=== PATIENT | male | born 1960 | race African-American/Black ===

== ENCOUNTER 2017-10-09 12:24 | Inpatient (IN) | payer OTHER ==
[~2017-10-09] VITALS: Ht 180.3 cm; Wt 62.5 kg
[~2017-10-09 12:24] MED LIST: PRED20 PO
[2017-10-09] MEDS ORDERED: IOHEXOL 350 MG/ML 10 ML VIAL (for RAD DIAG) IVCONTRAST ONE (12:25)
[2017-10-09 12:27] VITALS: BP 152/76; PULSE 134; RESP 16; TEMP 98; O2SAT 94
[2017-10-09] MEDS ORDERED: SODIUM CHLOR 0.9% 1000 ML INJ 1,000 ML IV SCH (12:48)
[2017-10-09 12:51] VITALS: O2SAT 99
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
[2017-10-09] MEDS ORDERED: ONDANSETRON HCL 4 MG/2 ML VIAL IVP ONE (13:00)
[2017-10-09 13:07] LABS: AUTOMATED NEUTROPHIL # 8.4 TH/MM3 (1.8-7.7); BASOPHIL % 0.4 % (0.0-2.0); EOSINOPHIL % 0.1 % (0.0-4.0); HEMATOCRIT 35.8 % (39.0-51.0); HEMOGLOBIN 12.3 GM/DL (13.0-17.0); LYMPH % 9.1 % (9.0-44.0); MEAN CELL VOLUME 96.1 FL (80.0-100.0); MEAN CORPUSCULAR HEMOGLOBIN 33.1 PG (27.0-34.0); MEAN CORPUSCULAR HGB CONC 34.5 % (32.0-36.0); MONOCYTE # 1.2 TH/MM3 (0-0.9); NEUT % 79.4 % (16.0-70.0); PLATELET COUNT 90 TH/MM3 (150-450); RED BLOOD COUNT 3.72 MIL/MM3 (4.50-5.90); RED CELL DISTRIBUTION WIDTH 14.7 % (11.6-17.2); WHITE BLOOD COUNT 10.6 TH/MM3 (4.0-11.0)
[2017-10-09 13:19] LABS: INTERNATIONAL NORMALIZED RATIO 1.6 RATIO; PROTHROMBIN TIME - PATIENT 16.6 SEC (9.8-11.6)
[2017-10-09 13:34] LABS: TROPONIN I LESS THAN 0.02 NG/ML (0.02-0.05)
[2017-10-09 13:35] LABS: ALBUMIN 2.9 GM/DL (3.4-5.0); ALKALINE PHOSPHATASE 90 U/L (45-117); ALT (GPT) 28 U/L (12-78); AST (GOT) 43 U/L (15-37); BICARBONATE 26.4 MEQ/L (21.0-32.0); BLOOD UREA NITROGEN 14 MG/DL (7-18); CALCIUM 8.5 MG/DL (8.5-10.1); CHLORIDE 90 MEQ/L (98-107); CREATININE 1.43 MG/DL (0.60-1.30); GLOMERULAR FILTRATION RATE 62 ML/MIN (>89); GLUCOSE,RANDOM 114 MG/DL (74-106); SODIUM (NA) 130 MEQ/L (136-145); TOTAL BILIRUBIN ADULT 3.9 MG/DL (0.2-1.0); TOTAL PROTEIN 8.8 GM/DL (6.4-8.2)
[2017-10-09] MEDS ORDERED: SODIUM CHLOR 0.9% 1000 ML INJ 1,000 ML IV ONE (13:45)
[2017-10-09] MEDS ORDERED: VANCOMYCIN INJ 1,500 MG in SODIUM CHLORID 0.9% 500 ML INJ 500 ML IV ONE (13:45)
[2017-10-09] MEDS ORDERED: PIPERACIL-TAZO 3.375 GM PREMIX 50 ML IV ONE (13:45)
[2017-10-09 13:48] LABS: BANDS 9 % (0-6); LYMPHOCYTES 19 % (9-44); MONOCYTES 11 % (0-8); NEUTROPHIL # MANUAL DIFF 7.4 TH/MM3 (1.8-7.7); POLYS (SEG NEUTROPHILS) 61 % (16-70)
[2017-10-09 13:49] LABS: TARGET CELLS 1+ (NORMAL); TOXIC GRANULATION 1+ (NORMAL)
[2017-10-09 13:50] LABS: TOXIC VACUOLATION PRESENT (NONE SEEN)
--- NOTE | 2017-10-09 14:14 | RADRPT ---
EXAM DATE/TIME: 10/09/2017 13:10 [facility] COMPARISON: CHEST SINGLE AP, August 17, 2013, 16:38. INDICATIONS : Vomiting, Right anterior posterior chest pain MEDICAL HISTORY : None. SURGICAL HISTORY : None. ENCOUNTER: Initial ACUITY: 1 day PAIN SCORE: 2/10 LOCATION: Right chest FINDINGS: There is focal alveolar consolidation of the right upper lobe consistent with probable lobar pneumoni a. Clinical correlation is recommended. The left lung is clear. The heart is stable. CONCLUSION: Focal alveolar consolidation of the right upper lobe consistent with probable lobar p neumonia. Clinical correlation is recommended. Parveen Vogel MD on October 09, 2017 at 14:11 Board Certified Radiologist. This report was verified electronically.
[2017-10-09] MEDS ORDERED: POTASSIUM CHLORIDE 10 MEQ CONTROLLED RELEASE TAB PO ONE (14:15)
--- NOTE | 2017-10-09 15:10 | PD ---
Physical Exam Narrative I, Dr. Bill, have reviewed the advance practice practitioner's documentation and am in agreement, met with the patient face to face, made the diagnosis, and the medical decision making was done by me. *My assessment and Findings: Patient is a 57 year old male who comes in complaining of pain to his right chest. He says he has had it for 5 days and has been unable to sleep. He also complains of some SOB and nausea and vomiting. Exam shows mildly distended abdomen, minimal diffuse tenderness. No tenderness to palpation of the chest. Data Data Last Documented VS Vital Signs Date Time Temp Pulse Resp B/P (MAP) Pulse Ox O2 Delivery O2 Flow Rate FiO2 10/09/17 12:51 99 Room Air 10/09/17 12:27 98.0 134 16 152/76 (101) Orders Orders Complete Blood Count With Diff (10/09/17 12:48) Comprehensive Metabolic Panel (10/09/17 12:48) Lipase (10/09/17 12:48) Lactic Acid (10/09/17 12:48) Prothrombin Time / Inr (Pt) (10/09/17 12:48) Act Partial Throm Time (Ptt) (10/09/17 12:48) Urinalysis - C+S If Indicated (10/09/17 12:48) Ct Abd/Pel W Iv Contrast(Rout) (10/09/17 12:48) Iv Access Insert/Monitor (10/09/17 12:48) Ecg Monitoring (10/09/17 12:48) Oximetry (10/09/17 12:48) NPO (10/09/17 12:48) Ondansetron Inj (Zofran Inj) (10/09/17 13:00) Sodium Chlor 0.9% 1000 Ml Inj (Ns 1000 M (10/09/17 12:48) Electrocardiogram (10/09/17 12:48) Ammonia (10/09/17 12:59) Troponin I (10/09/17 12:59) Ckmb (Isoenzyme) Profile (10/09/17 12:59) Chest, Single Ap (10/09/17 ) Ct Thorax/ Chest W Iv Contrast (10/09/17 ) Sodium Chlor 0.9% 1000 Ml Inj (Ns 1000 M (10/09/17 13:45) Piperacil-Tazo 3.375 Gm Premix (Zosyn 3. (10/09/17 13:45) Vancomycin Inj (Vancomycin Inj) (10/09/17 13:45) Potassium Chloride (Kcl) (10/09/17 14:15) Iohexol 350 Inj (Omnipaque 350 Inj) (10/09/17 12:25) Blood Culture (10/09/17 15:34) Admit Order (Ed Use Only) (10/09/17 15:35) Labs Laboratory Tests Test 10/09/17 12:50 10/09/17 13:00 White Blood Count 10.6 TH/MM3 Red Blood Count 3.72 MIL/MM3 Hemoglobin 12.3 GM/DL Hematocrit 35.8 % Mean Corpuscular Volume 96.1 FL Mean Corpuscular Hemoglobin 33.1 PG Mean Corpuscular Hemoglobin Concent 34.5 % Red Cell Distribution Width 14.7 % Platelet Count 90 TH/MM3 Mean Platelet Volume 9.0 FL Neutrophils (%) (Auto) 79.4 % Lymphocytes (%) (Auto) 9.1 % Monocytes (%) (Auto) 11.0 % Eosinophils (%) (Auto) 0.1 % Basophils (%) (Auto) 0.4 % Neutrophils # (Auto) 8.4 TH/MM3 Lymphocytes # (Auto) 1.0 TH/MM3 Monocytes # (Auto) 1.2 TH/MM3 Eosinophils # (Auto) 0.0 TH/MM3 Basophils # (Auto) 0.0 TH/MM3 CBC Comment AUTO DIFF Differential Total Cells Counted 100 Neutrophils % (Manual) 61 % Band Neutrophils % 9 % Lymphocytes % 19 % Monocytes % 11 % Neutrophils # (Manual) 7.4 TH/MM3 Differential Comment FINAL DIFF MANUAL Toxic Granulation 1+ Toxic Vacuolation PRESENT Platelet Estimate LOW Platelet Morphology Comment NORMAL Basophilic Stippling FAINT Target Cells 1+ Prothrombin Time 16.6 SEC Prothromb Time International Ratio 1.6 RATIO Activated Partial Thromboplast Time 33.6 SEC Blood Urea Nitrogen 14 MG/DL Creatinine 1.43 MG/DL Random Glucose 114 MG/DL Total Protein 8.8 GM/DL Albumin 2.9 GM/DL Calcium Level 8.5 MG/DL Alkaline Phosphatase 90 U/L Aspartate Amino Transf (AST/SGOT) 43 U/L Alanine Aminotransferase (ALT/SGPT) 28 U/L Total Bilirubin 3.9 MG/DL Sodium Level 130 MEQ/L Potassium Level 2.9 MEQ/L Chloride Level 90 MEQ/L Carbon Dioxide Level 26.4 MEQ/L Anion Gap 14 MEQ/L Estimat Glomerular Filtration Rate 62 ML/MIN Lactic Acid Level 3.6 mmol/L Lipase 225 U/L Ammonia 32 MCMOL/L Total Creatine Kinase 85 U/L Troponin I LESS THAN 0.02 NG/ML MDM Supervised Visit with TRAN: Yes Narrative Course Patient is a 57 year old male who comes in complaining of right sided chest pain , SOB, nausea. IV established, labs sent. Labs show evidence of liver failure. Lactic acid is 3.6. CXR shows a right sided infiltrate. Given antibiotics, fluids. Will be admitted for further management. Diagnosis Primary Impression: Hypokalemia Additional Impression: Thrombocytopenia Condition: Stable Alberta Bill MD Oct 09, 2017 15:10
--- NOTE | 2017-10-09 15:14 | RADRPT ---
EXAM DATE/TIME: 10/09/2017 14:32 [facility] COMPARISON: CT ABDOMEN & PELVIS W/O CONTRAST, May 16, 2010, 11:16. CT ABDOMEN & PELVIS W CONTRAST, July 222013, 14:52. INDICATIONS : Right side abdominal pain, nausea and vomiting. IV CONTRAST: 70 cc Omnipaque 350 (iohexol) IV ; Cumulative dose for multiple exams. ORAL CONTRAST: No oral contrast ingested. RADIATION DOSE: 5.10 CTDIvol (mGy) ; Combined studies - Thorax/Abdomen/Pelvis MEDICAL HISTORY : Diverticulitis. Cirrhosis. Carcinoma, prostate.Hepatitis C. SURGICAL HISTORY : None. ENCOUNTER: Initial ACUITY: 4 - 6 days PAIN SCALE: 10/10 LOCATION: Right upper quadrant TECHNIQUE: Volumetric scanning of the abdomen and pelvis was performed. Using automated exposure control and ad justment of the mA and/or kV according to patient size, radiation dose was kept as low as reasonably achievable to obtain optimal diagnostic quality images. DICOM format image data is available electro nically for review and comparison. FINDINGS: There is a large solid mass arising from the left kidney measuring 8.7 x 6.9 x 8.6 cm suggestive of r enal cell carcinoma until proven otherwise. Percutaneous biopsy this lesion could be performed if req uested. The liver is nodular in contour and demonstrates diffuse decreased attenuation consistent wit h probable cirrhosis. No biliary ductal dilatation is noted the gallbladder has been resected. Spleen is top normal in size. The pancreas is unremarkable. The adrenal glands are normal bilaterally. The right kidney is unremarkable. No retroperitoneal lymphadenopathy is noted. No mesenteric lymphadenopa thy is noted. No ascites is noted. The urinary bladder is unremarkable. The appendix is normal. No cole wel obstruction is noted. There is patchy opacity within the left lower lobe consistent with possible pneumonia. Clinical correlation is recommended. Mild degenerative changes are noted involving the hi p joints bilaterally. CONCLUSION: 1. Large solid mass arising from the left kidney measuring 8.7 x 6.9 x 8.6 cm suggestive of renal kelsie l carcinoma until proven otherwise. Percutaneous biopsy this lesion could be performed if requested. 2. Patchy opacity within the left lower lobe consistent with possible pneumonia. 3. Nodular heterogeneous liver suggestive of cirrhosis. 4. Mild degenerative changes are noted involving the hip joints bilaterally. Parveen Vogel MD on October 09, 2017 at 15:03 Board Certified Radiologist. This report was verified electronically.
--- NOTE | 2017-10-09 15:17 | RADRPT ---
EXAM DATE/TIME: 10/09/2017 14:32 [facility] COMPARISON: No previous studies available for comparison. INDICATIONS : Right side chest pain, nausea and vomiting. IV CONTRAST: 70 cc Omnipaque 350 (iohexol) IV ; Cumulative dose for multiple exams. RADIATION DOSE: 5.10 CTDIvol (mGy) ; Combined studies - Thorax/Abdomen/Pelvis MEDICAL HISTORY : Cirrhosis. Carcinoma, prostate. Hepatitis C.Diverticulitis. SURGICAL HISTORY : None. ENCOUNTER: Initial ACUITY: 4 - 6 days PAIN SCALE: 10/10 LOCATION: Right upper chest TECHNIQUE: Volumetric scanning of the chest was performed. Using automated exposure control and adjustment of t he mA and/or kV according to patient size, radiation dose was kept as low as reasonably achievable to obtain optimal diagnostic quality images. DICOM format image data is available electronically for review and comparison. Follow-up recommendations for detected pulmonary nodules are based at a minimum on nodule size and pa tient risk factors according to Fleischner Society Guidelines. FINDINGS: LUNGS: Alveolar consolidation is noted within the right upper lobe and less severe patchy opacities are note d within the left lower lobe and posterior aspect of left upper lobe also consistent with probable pn eumonia. No pulmonary nodule or mass is noted. There is no pneumothorax. No concerning pulmonary nod ule is visualized. PLEURA: There is no pleural thickening or pleural effusion. MEDIASTINUM: The heart and great vessels demonstrate no acute abnormality. There is no mediastinal or hilar lymph adenopathy. AXILLAE: Within normal limits. No lymphadenopathy. SKELETAL: Mild degenerative changes and scoliosis of the thoracic spine. MISCELLANEOUS: The visualized upper abdominal organs demonstrate no acute abnormality. CONCLUSION: Alveolar consolidation within the right upper lobe and less severe patchy opacities w ithin the left lower lobe and posterior aspect of the left upper lobe consistent with probable pneumo naveen. Parveen Vogel MD on October 09, 2017 at 15:13 Board Certified Radiologist. This report was verified electronically.
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
[2017-10-09] MEDS ORDERED: RESP: ALBUTEROL 2.5 MG/IPRATROPIUM 0.5 MG NEB (PRN) INH (16:30)
[2017-10-09] MEDS ORDERED: SODIUM CHLORIDE 0.9% FLUSH 10 ML FLUSH IV FLUSH PRN (16:30)
[2017-10-09] MEDS ORDERED: ACETAMINOPHEN 325 MG TAB PO PRN (16:30)
[2017-10-09] MEDS ORDERED: guaiFENesin/DEXTROMETHORPHAN 200 MG/20 MG/10 ML CUP PO PRN (16:30)
[2017-10-09] MEDS ORDERED: ENOXAPARIN SODIUM 40 MG/0.4 ML SYRINGE SQ SCH (16:30)
[2017-10-09] MEDS ORDERED: Vancomycin Consult Pharmacy 1 EA OTHER SCH (16:30)
[2017-10-09] MEDS ORDERED: ONDANSETRON HCL 4 MG/2 ML VIAL IV PUSH PRN (16:30)
[2017-10-09 17:23] VITALS: BP 128/58; PULSE 100; RESP 17; O2SAT 98
[2017-10-09] MEDS: SODIUM CHLOR 0.9% 1000 ML INJ 1,000 ML IV SCH (17:27)
[2017-10-09] MEDS ORDERED: LORazepam 2 MG TAB PO PRN (17:45)
[2017-10-09] MEDS ORDERED: LORazepam 2 MG/ML VIAL IV PUSH PRN ×4 (17:45)
[2017-10-09] MEDS ORDERED: FLUMAZENIL 0.5 MG/5 ML VIAL IV PUSH PRN (17:45)
[2017-10-09] MEDS ORDERED: LORazepam 1 MG TAB PO PRN (17:45)
[2017-10-09] MEDS ORDERED: cloNIDine HCL 0.1 MG TAB PO PRN (18:00)
[2017-10-09 18:58] LABS: BILIRUBIN, URINE NEG (NEG); BLOOD, URINE TRACE (NEG); GLUCOSE,URINE NEG (NEG); KETONE, URINE NEG (NEG); NITRITE,URINE NEG (NEG); PH, URINE 6.5 (5.0-8.5); SQUAMOUS EPITHELIAL CELL URINE 1 /hpf (0-5); URINE COLOR DARK-YELLOW (YELLW/STRAW); URINE LEUKOCYTE ESTERASE SMALL (NEG)
[2017-10-09] MEDS ORDERED: EUCERIN CREAM 120 GM JAR TOPICAL PRN (19:00)
[2017-10-09 19:13] VITALS: BP 134/73; PULSE 102; RESP 16; O2SAT 100
[2017-10-09] MEDS: SODIUM CHLORIDE 0.9% FLUSH 10 ML FLUSH IV FLUSH SCH (21:00)
[2017-10-09] MEDS: PIPERACIL-TAZO 3.375 GM PREMIX 50 ML IV SCH (22:09)
[2017-10-09 22:40] VITALS: BP 108/56; PULSE 107; RESP 16; TEMP 99.3; O2SAT 94
[2017-10-10] VITALS (12 sets, daily range): BP systolic 101–151; BP diastolic 57–83; PULSE 79–108; RESP 16–19; TEMP 97.3–100; O2SAT 97–100
[2017-10-10 00:45] LABS: BICARBONATE 25.1 MEQ/L (21.0-32.0); CALCIUM 7.2 MG/DL (8.5-10.1); CREATININE 1.26 MG/DL (0.60-1.30)
[2017-10-10] MEDS ORDERED: POTASSIUM CHLORIDE 10 MEQ CONTROLLED RELEASE TAB PO ONE (01:15)
[2017-10-10 01:16] LABS: TOTAL PROTEIN 7.3 GM/DL (6.4-8.2)
[2017-10-10 01:19] LABS: CALCIUM-PROTEIN CORRECTED 7.2 MG/DL (8.5-10.1)
[2017-10-10] MEDS: CALCIUM CARBONATE 500 MG CHEWABLE TAB CHEW SCH ×3 (01:44→22:26)
[2017-10-10] MEDS: PIPERACIL-TAZO 3.375 GM PREMIX 50 ML IV SCH ×4 (01:46→22:26)
[2017-10-10] MEDS: SODIUM CHLOR 0.9% 1000 ML INJ 1,000 ML IV SCH ×3 (01:47→22:25)
[2017-10-10] MEDS ORDERED: CALCIUM GLUCONATE INJ 1 GM in SODIUM CHLORIDE 0.9% INJ 100 ML IV ONE (03:00)
[2017-10-10] MEDS ORDERED: IBUPROFEN 400 MG TAB PO PRN (03:00)
[2017-10-10] MEDS ORDERED: NALOXONE HCL 0.4 MG/ML AMP IV PUSH PRN (03:00)
[2017-10-10] MEDS ORDERED: MORPHINE SULFATE 4 MG/ML INJ IV PUSH PRN (03:15)
[2017-10-10 04:10] LABS: MAGNESIUM 0.8 MG/DL (1.5-2.5); PHOSPHORUS 0.8 MG/DL (2.5-4.9)
[2017-10-10] MEDS ORDERED: VANCOMYCIN INJ 1,000 MG in SODIUM CHLOR 0.9% 250 ML INJ 250 ML IV SCH (04:20)
[2017-10-10 07:09] LABS: INTERNATIONAL NORMALIZED RATIO 2.4 RATIO; PROTHROMBIN TIME - PATIENT 24.3 SEC (9.8-11.6)
[2017-10-10 07:10] LABS: AUTOMATED NEUTROPHIL # 4.6 TH/MM3 (1.8-7.7); BASOPHIL % 0.3 % (0.0-2.0); EOSINOPHIL % 0.4 % (0.0-4.0); HEMATOCRIT 29.1 % (39.0-51.0); LYMPH % 16.5 % (9.0-44.0); LYMPHOCYTE # 1.2 TH/MM3 (1.0-4.8); MEAN CELL VOLUME 96.1 FL (80.0-100.0); MEAN CORPUSCULAR HGB CONC 34.3 % (32.0-36.0); MEAN PLATELET VOLUME 9.9 FL (7.0-11.0); MONO % 18.4 % (0.0-8.0); MONOCYTE # 1.3 TH/MM3 (0-0.9); NEUT % 64.4 % (16.0-70.0); PLATELET COUNT 86 TH/MM3 (150-450); RED BLOOD COUNT 3.03 MIL/MM3 (4.50-5.90); RED CELL DISTRIBUTION WIDTH 14.8 % (11.6-17.2); WHITE BLOOD COUNT 7.1 TH/MM3 (4.0-11.0)
[2017-10-10] MEDS: MAGNESIUM OXIDE 400 MG TAB PO SCH ×3 (07:22→22:26)
[2017-10-10 07:41] LABS: ALBUMIN 2.1 GM/DL (3.4-5.0); ALKALINE PHOSPHATASE 56 U/L (45-117); ALT (GPT) 18 U/L (12-78); AST (GOT) 32 U/L (15-37); BICARBONATE 24.7 MEQ/L (21.0-32.0); BLOOD UREA NITROGEN 12 MG/DL (7-18); CALCIUM 7.7 MG/DL (8.5-10.1); CHLORIDE 104 MEQ/L (98-107); CREATININE 1.12 MG/DL (0.60-1.30); GLOMERULAR FILTRATION RATE 82 ML/MIN (>89); GLUCOSE,RANDOM 89 MG/DL (74-106); SODIUM (NA) 137 MEQ/L (136-145); TOTAL BILIRUBIN ADULT 2.5 MG/DL (0.2-1.0); TOTAL PROTEIN 6.6 GM/DL (6.4-8.2)
[2017-10-10] MEDS: MULTIVITAMINS/MINERALS THERAPEUTIC TAB PO SCH (08:09)
[2017-10-10] MEDS: THIAMINE HCL 100 MG TAB PO SCH (08:10)
[2017-10-10] MEDS: FOLIC ACID 1 MG TAB PO SCH (08:10)
[2017-10-10] MEDS ORDERED: POTASSIUM CHLORIDE 20 MEQ CONTROLLED RELEASE TAB PO ONE (09:00)
[2017-10-10] MEDS: SODIUM CHLORIDE 0.9% FLUSH 10 ML FLUSH IV FLUSH SCH ×2 (09:00→21:00)
[2017-10-10 09:26] LABS: BANDS 14 % (0-6); LYMPHOCYTES 14 % (9-44); MONOCYTES 10 % (0-8); NEUTROPHIL # MANUAL DIFF 5.4 TH/MM3 (1.8-7.7); POLYS (SEG NEUTROPHILS) 62 % (16-70); TARGET CELLS 1+ (NORMAL)
[2017-10-10] MEDS ORDERED: PHYTONADIONE 5 MG TAB PO ONE (10:00)
[2017-10-10] MEDS ORDERED: VANCOMYCIN 1,000 MG/NS 250 ML IV SCH ×2 (10:00)
[2017-10-10] MEDS ORDERED: PHYTONADIONE 5 MG/SWFI 5 ML ORAL SYR PO ONE (10:30)
--- NOTE | 2017-10-10 13:32 | HHI.FPPN ---
Addendum to progress note ADDENDUM Reason for addendum: Additonal documentation Additional information 57 year old male admitted with known cirrhosis, alcoholism for CAP, renal mass and electrolyte abnormalities, Please see resident History and Physical for the full documentation of the patients history. Today at the time of his exam , he reports he feels a little better than yesterday. He states he has been hungry, had one episode emesis since admission but that was prior to bed yesterday, he feels like the diarrhea has resolved. On exam Gen - he is awake, alert, no distress, comfortably resting in bed HEENT - perrl, op clear CARDS -- rrr, no murmurs HEME - no cervical LAD, no bruising or petechiae PULM - clear bilaterally except some scattered dry crackles at the bases bilateral ABD - s, nt, good bowel sounds, no masses EXT _ no edema, moving all ext well SKIN - no rashes, no lesions Neuro - strength 5/5 all ext, ambulating and speaking normally. 1. CAP with possible risk for aspiration and possibly immunocompromised due to renal cell carcinoma -- will continue with broad spectrum antibiotics at this time and narrow based on cultures and clinical picture. 2. UTI - culture pending suspect might be due to obstructive picture due to renal mass 3. Renal mass - will need biopsy after INR normalizes to decrease risk of bleeding during the procedure. 4. Cirrhosis/electrolytes balance -- will monitor, replete and attempts to normalize. Patient was seen and dw the resident team -- Dr. Stephenson, Dr. Coe, Dr. Radha Maharaj,Melissa Velez MD Oct 10, 2017 13:32
[2017-10-10 18:10] LABS: INTERNATIONAL NORMALIZED RATIO 1.5 RATIO; PROTHROMBIN TIME - PATIENT 15.6 SEC (9.8-11.6)
--- NOTE | 2017-10-10 19:52 | EKG ---
Date Performed: 10/09/2017 Time Performed: 13:00:30 PTAGE: 57 years EKG: SINUS TACHYCARDIA Since previous tracing, no significant change noted ABNORMAL RHYTHM ECG PREVIOUS TRACING : 08/17/2013 22.19 DOCTOR: Amanuel Longo Interpretating Date/Time 10/10/2017 19:49:48
[2017-10-11] VITALS (7 sets, daily range): BP systolic 121–159; BP diastolic 72–85; PULSE 78–95; RESP 18–20; TEMP 96.7–98.5; O2SAT 95–100
[2017-10-11] MEDS: PIPERACIL-TAZO 3.375 GM PREMIX 50 ML IV SCH ×4 (03:00→20:34)
[2017-10-11] MEDS: THIAMINE HCL 100 MG TAB PO SCH (08:56)
[2017-10-11] MEDS: CALCIUM CARBONATE 500 MG CHEWABLE TAB CHEW SCH ×2 (08:56→20:36)
[2017-10-11] MEDS: MULTIVITAMINS/MINERALS THERAPEUTIC TAB PO SCH (08:56)
[2017-10-11] MEDS: MAGNESIUM OXIDE 400 MG TAB PO SCH ×2 (08:56→20:36)
[2017-10-11] MEDS: FOLIC ACID 1 MG TAB PO SCH (08:56)
[2017-10-11] MEDS: SODIUM CHLORIDE 0.9% FLUSH 10 ML FLUSH IV FLUSH SCH ×2 (08:57→20:36)
[2017-10-11] MEDS: SODIUM CHLOR 0.9% 1000 ML INJ 1,000 ML IV SCH (08:59)
--- NOTE | 2017-10-11 09:45 | HHI.FPPN ---
Subjective Remarks No acute issues overnight. Vitals are stable, patient remains afebrile. Temperature high was 100.0 overnight. He is starting to feel better overall. He continues to have pain in his right chest especially when coughing. When discussing obtaining a biopsy of his renal mass, he further explained that he has a history of prostate cancer that was treated with radiation a year ago at [facility] in [place]. He states that he had a PET scan one month ago that as far as he knows was normal. He follows with PCP, Dr. Castorena at [facility] and has an oncologist as well. He does not remember his oncologist's name. He states that he was never treated with chemotherapy. (Cherri Garcia MD, R3) Objective Vitals Vital Signs Date Time Temp Pulse Resp B/P (MAP) Pulse Ox O2 Delivery O2 Flow Rate FiO2 10/11/17 04:00 96.7 82 18 140/79 (99) 95 10/11/17 02:03 Room Air 10/11/17 00:00 79 10/10/17 23:50 97.5 79 17 126/72 (90) 98 10/10/17 20:00 97.8 84 17 121/71 (88) 98 10/10/17 20:00 83 10/10/17 20:00 Room Air 10/10/17 18:10 98 21 10/10/17 18:00 100.0 10/10/17 16:00 97.5 95 18 123/82 (96) 100 10/10/17 16:00 92 10/10/17 15:58 98 Room Air 10/10/17 13:54 98 Room Air 10/10/17 12:00 93 10/10/17 12:00 97.3 93 17 114/72 (86) 97 I/O 10/10/17 10/10/17 10/10/17 10/11/17 10/11/17 10/11/17 07:00 15:00 23:00 07:00 15:00 23:00 Intake Total 1520 ml 1700 ml Output Total 5 ml 1350 ml 200 ml Balance -5 ml 170 ml 1500 ml Intake Oral 1520 ml 0 ml IV Total 1700 ml Output Urine Total 1350 ml 200 ml Stool Total 5 ml # Voids 2 1 2 # Bowel Movements 2 2 (Cherri Garcia MD, R3) Result Diagram: 3/23/18 0616 10/10/17 0616 Imaging Last Impressions Abdomen/Pelvis CT 10/09/17 1248 Signed Impressions: Service Date/Time: September 14:32 - CONCLUSION: 1. Large solid mass arising from the left kidney measuring 8.7 x 6.9 x 8.6 cm suggestive of renal cell carcinoma until proven otherwise. Percutaneous biopsy this lesion could be performed if requested. 2. Patchy opacity within the left lower lobe consistent with possible pneumonia. 3. Nodular heterogeneous liver suggestive of cirrhosis. 4. Mild degenerative changes are noted involving the hip joints bilaterally. Parveen Vogel MD Chest X-Ray 10/09/17 0000 Signed Impressions: Service Date/Time: September 13:10 - CONCLUSION: Focal alveolar consolidation of the right upper lobe consistent with probable lobar pneumonia. Clinical correlation is recommended. Parveen Vogel MD Chest CT 10/09/17 0000 Signed Impressions: Service Date/Time: September 14:32 - CONCLUSION: Alveolar consolidation within the right upper lobe and less severe patchy opacities within the left lower lobe and posterior aspect of the left upper lobe consistent with probable pneumonia. Parveen Vogel MD Objective Remarks GENERAL: Well-nourished, well-developed patient male in no acute distress. SKIN: Warm and dry. HEAD: Normocephalic. EYES: No scleral icterus. I lateral conjunctival injection, scleral icterus. NECK: Supple, trachea midline. No JVD or lymphadenopathy. CARDIOVASCULAR: Regular rate and rhythm without murmurs, gallops, or rubs. RESPIRATORY: Decreased breath sounds in mid axillary region. Otherwise, breath sounds clear and equal bilaterally. No accessory muscle use. No wheezes or crackles. GASTROINTESTINAL: Abdomen soft, non-tender, nondistended. MUSCULOSKELETAL: No cyanosis, or edema. BACK: Nontender without obvious deformity. No CVA tenderness. (Cherri Garcia MD, R3) A/P Assessment and Plan Patient is a 57 year old male with a PMH significant for prostate cancer s/p radiation, HTN and alcoholism who presented for weakness and several other ailments and admitted for PNA, new renal mass, and metabolic disturbance. Discharge Planning Anticipate discharge home in 2-3 days. (Cherri Garcia MD, R3) Attending Attestation Case reviewed and discussed with the resident team. Agree with plan of care as discussed with me and documented in the resident note. (Melissa Mahraaj MD) Problem List: (1) CAP (community acquired pneumonia) ICD Codes: J18.9 - Pneumonia, unspecified organism Status: Acute Plan: Tachycardia resolved Right upper lobar pneumonia on chest x-ray Patchy opacities within the left lower lobe posterior aspect of the left upper lobe consistent with probable pneumonia on chest CT No leukocytosis 10/09 urinary strep antigen positive, legionella negative 10/09 blood culture growing gram positive cocci Plan: - Given Strep PNA in the setting of a gram positive bacteremia, will continue treatment with broad-spectrum antibiotics vancomycin and Zosyn. Continue to follow cultures. -Incentive spirometry - Influenza A/B antigen - sputum culture - Follow CBC (2) Bacteremia due to Gram-positive bacteria ICD Codes: R78.81 - Bacteremia Plan: 10/09 blood culture growing gram positive cocci Repeat blood cultures today Continue Vanc and Zosyn (3) Weakness ICD Codes: R53.1 - Weakness Status: Acute Plan: Improving Likely multifactorial secondary to metabolic disturbance, infection, and malignancy Continue to replete electrolytes Further infectious workup with UA, blood cultures Further evaluation of possible malignancy with renal biopsy Continue IVF hydration and supportive care (4) Kidney mass ICD Codes: N28.89 - Other specified disorders of kidney and ureter Status: Acute Plan: 10/09 CT abdomen and pelvis significant for large solid mass arising from the left kidney measuring 8.7 x 6.9 x 8.6 cm suggestive of renal cell carcinoma Will obtain CT-guided biopsy: This was delayed due to elevated INR, s/p phytonadione 5mg PO once with decrease in INR to 1.5 Discussed with Radiology: Will continue monitoring INR and give Vitamin K PRN to keep INR low in anticipation of CT-guided biopsy on Friday Patient is already established with oncologist. Once pathology is obtained, will likely proceed with further evaluation and treatment as outpatient. (5) Hypokalemia ICD Codes: E87.6 - Hypokalemia Status: Acute Plan: Continue to monitor and replete (6) Cirrhosis ICD Codes: K74.60 - Unspecified cirrhosis of liver Status: Chronic Plan: Likely secondary to history of alcoholism Likely cause of hyponatremia (7) Thrombocytopenia ICD Codes: D69.6 - Thrombocytopenia, unspecified Status: Chronic Plan: This appears to be the patient's baseline per chart review (8) HTN (hypertension) ICD Codes: I10 - HTN (hypertension) Status: Chronic Plan: Continue home amlodipine 10mg PO daily (9) Alcoholism /alcohol abuse ICD Codes: F10.20 - Alcohol dependence, uncomplicated Status: Chronic Plan: Obtain ethanol level [facility] protocol (10) Nutrition, metabolism, and development symptoms ICD Codes: R63.8 - Other symptoms and signs concerning food and fluid intake Status: Acute Plan: Fluids: Tolerating PO, will DC IV fluids today Electrolytes: continue to monitor and replete PRN Nutrition: Regular Diet, ensure shakes DVT PPx: Held for thrombocytopenia (Cherri Garcia MD, R3) Problem Qualifiers (1) CAP (community acquired pneumonia): Qualified Codes: J18.1 - Lobar pneumonia, unspecified organism (2) Cirrhosis: Qualified Codes: K70.30 - Alcoholic cirrhosis of liver without ascites (3) HTN (hypertension): Qualified Codes: I10 - Essential (primary) hypertension Cherri Garcia MD, R3 Oct 11, 2017 09:45 Melissa Maharaj MD Oct 11, 2017 15:35
[2017-10-11 10:05] LABS: INTERNATIONAL NORMALIZED RATIO 1.4 RATIO; PROTHROMBIN TIME - PATIENT 14.3 SEC (9.8-11.6)
[2017-10-11 10:08] LABS: HEMATOCRIT 28.7 % (39.0-51.0); HEMOGLOBIN 9.8 GM/DL (13.0-17.0); MEAN CELL VOLUME 97.7 FL (80.0-100.0); MEAN CORPUSCULAR HEMOGLOBIN 33.2 PG (27.0-34.0); MEAN PLATELET VOLUME 9.4 FL (7.0-11.0); PLATELET COUNT 128 TH/MM3 (150-450); RED BLOOD COUNT 2.94 MIL/MM3 (4.50-5.90); RED CELL DISTRIBUTION WIDTH 15.5 % (11.6-17.2); WHITE BLOOD COUNT 6.3 TH/MM3 (4.0-11.0)
[2017-10-11 10:40] LABS: BICARBONATE 23.6 MEQ/L (21.0-32.0); CALCIUM 7.7 MG/DL (8.5-10.1); CREATININE 0.9 MG/DL (0.60-1.30)
[2017-10-11] MEDS ORDERED: POTASSIUM CHLORIDE 20 MEQ CONTROLLED RELEASE TAB PO ONE ×2 (11:15→20:00)
[2017-10-11] MEDS ORDERED: PHARMACY ORDERED LAB ONE (21:45)
[2017-10-12] VITALS (11 sets, daily range): BP systolic 130–151; BP diastolic 64–88; PULSE 87–109; RESP 18–20; TEMP 97.7–98.1; O2SAT 98–100
[2017-10-12] MEDS: PIPERACIL-TAZO 3.375 GM PREMIX 50 ML IV SCH ×4 (03:22→21:54)
[2017-10-12 07:49] LABS: AUTOMATED NEUTROPHIL # 5.2 TH/MM3 (1.8-7.7); BASOPHIL % 0.2 % (0.0-2.0); EOSINOPHIL # 0.1 TH/MM3 (0-0.4); EOSINOPHIL % 1.3 % (0.0-4.0); HEMATOCRIT 28.6 % (39.0-51.0); HEMOGLOBIN 9.9 GM/DL (13.0-17.0); LYMPH % 15.8 % (9.0-44.0); LYMPHOCYTE # 1.3 TH/MM3 (1.0-4.8); MEAN CELL VOLUME 96.2 FL (80.0-100.0); MEAN CORPUSCULAR HEMOGLOBIN 33.1 PG (27.0-34.0); MEAN CORPUSCULAR HGB CONC 34.4 % (32.0-36.0); MEAN PLATELET VOLUME 8.5 FL (7.0-11.0); MONO % 19.6 % (0.0-8.0); MONOCYTE # 1.6 TH/MM3 (0-0.9); NEUT % 63.1 % (16.0-70.0); PLATELET COUNT 170 TH/MM3 (150-450); RED BLOOD COUNT 2.98 MIL/MM3 (4.50-5.90); RED CELL DISTRIBUTION WIDTH 15.1 % (11.6-17.2); WHITE BLOOD COUNT 8.3 TH/MM3 (4.0-11.0)
[2017-10-12 07:54] LABS: INTERNATIONAL NORMALIZED RATIO 1.5 RATIO; PROTHROMBIN TIME - PATIENT 15.3 SEC (9.8-11.6)
[2017-10-12 08:18] LABS: ALBUMIN 2.3 GM/DL (3.4-5.0); ALT (GPT) 37 U/L (12-78); AST (GOT) 68 U/L (15-37); BICARBONATE 25.4 MEQ/L (21.0-32.0); BLOOD UREA NITROGEN 9 MG/DL (7-18); CALCIUM 8.2 MG/DL (8.5-10.1); CHLORIDE 102 MEQ/L (98-107); CREATININE 0.94 MG/DL (0.60-1.30); GLOMERULAR FILTRATION RATE 100 ML/MIN (>89); GLUCOSE,RANDOM 90 MG/DL (74-106); SODIUM (NA) 136 MEQ/L (136-145)
[2017-10-12 08:19] LABS: ALKALINE PHOSPHATASE 84 U/L (45-117); TOTAL BILIRUBIN ADULT 1.6 MG/DL (0.2-1.0); TOTAL PROTEIN 6.9 GM/DL (6.4-8.2)
[2017-10-12] MEDS: SODIUM CHLORIDE 0.9% FLUSH 10 ML FLUSH IV FLUSH SCH ×2 (08:54→21:55)
[2017-10-12] MEDS: CALCIUM CARBONATE 500 MG CHEWABLE TAB CHEW SCH ×2 (08:54→21:54)
[2017-10-12] MEDS: MAGNESIUM OXIDE 400 MG TAB PO SCH ×2 (08:54→21:55)
[2017-10-12] MEDS: MULTIVITAMINS/MINERALS THERAPEUTIC TAB PO SCH (08:54)
[2017-10-12] MEDS: FOLIC ACID 1 MG TAB PO SCH (08:54)
[2017-10-12] MEDS: THIAMINE HCL 100 MG TAB PO SCH (08:55)
--- NOTE | 2017-10-12 10:25 | HHI.FPPN ---
Subjective Remarks Patient is restless today, states he is tired of being in the hospital and feels ready to go. Is annoyed w/feeling trapped, reminds him of being incarcerated. Does not know why he is still in the hospital, is tired of sitting around. Friend is at bedside.Tries to reassure patient to be calm down. Patient feels better after reason for hospitalization and plan of treatment is reiterated to him. Vitals stable overnight. Positive fluid balance, patient has gained a kilogram since yesterday. (Sujey Stephenson MD R1) Objective Vitals Vital Signs Date Time Temp Pulse Resp B/P (MAP) Pulse Ox O2 Delivery O2 Flow Rate FiO2 10/12/17 08:30 98 21 10/12/17 08:00 87 10/12/17 04:00 97.8 91 20 131/88 (102) 99 10/12/17 03:41 90 10/12/17 00:06 90 10/12/17 00:00 98.1 89 20 137/79 (98) 100 10/11/17 20:00 98.3 93 20 121/85 (97) 100 10/11/17 20:00 Room Air 10/11/17 19:43 95 10/11/17 16:00 86 10/11/17 16:00 98.5 91 20 159/74 (102) 98 10/11/17 12:00 90 10/11/17 12:00 97.5 91 20 131/75 (93) 100 I/O 10/11/17 10/11/17 10/11/17 10/12/17 10/12/17 10/12/17 07:00 15:00 23:00 07:00 15:00 23:00 Intake Total 1700 ml 200 ml 720 ml 420 ml Output Total 200 ml 300 ml 400 ml Balance 1500 ml 200 ml 420 ml 20 ml Intake Oral 0 ml 720 ml 420 ml IV Total 1700 ml 200 ml Output Urine Total 200 ml 300 ml 400 ml # Voids 2 2 # Bowel Movements 2 1 (Sujey Stephenson MD R1) Result Diagram: 10/12/1762610/12/17626 Objective Remarks GENERAL: Well-nourished, well-developed patient male in no acute distress. SKIN: Warm and dry. HEAD: Normocephalic. EYES: No scleral icterus or drainage. NECK: Supple, trachea midline. No JVD or lymphadenopathy. CARDIOVASCULAR: Regular rate and rhythm without murmurs, gallops, or rubs. RESPIRATORY: No accessory muscle use, lungs clear bilaterally. No wheezes. GASTROINTESTINAL: Abdomen soft, non-tender, nondistended. MUSCULOSKELETAL: No cyanosis, or edema. (Sujey Stephenson MD R1) A/P Assessment and Plan Patient is a 57 year old male with a PMH significant for prostate cancer s/p radiation, HTN and alcoholism who presented for weakness and several other ailments and admitted for PNA, new renal mass, and metabolic disturbance. Discharge Planning Anticipate discharge home after bx of renal mass procedure on Friday. (Sujey Stephenson MD R1) Attending Attestation Patient seen and examined. Case reviewed and discussed with the resident team. Agree with plan of care as discussed with me and documented in the resident note. Patient seen and examined on 10/12. This is late entry for that visit. Patient is clinically back at his baseline on exam. Lungs are clear, no crackles or wheezing, he is dressed walking around the room in no discomfort. He denies withdrawal symptoms and does not have any tremors or confusion on exam. Ideally would like to dc to home with outpatient fu after the kidney biopsy on Friday. Will depend on his clinical course. (Melissa Maharaj MD) Problem List: (1) CAP (community acquired pneumonia) ICD Codes: J18.9 - Pneumonia, unspecified organism Status: Acute Plan: Tachycardia resolved Right upper lobar pneumonia on chest x-ray Patchy opacities within the left lower lobe posterior aspect of the left upper lobe consistent with probable pneumonia on chest CT No leukocytosis 10/09 urinary strep antigen positive, legionella negative 10/09 blood culture growing gram positive cocci 10/11 blood cultures negative growth after 1 day S/p Vanc 2 doses (10/09-) Plan: - Given Strep PNA in the setting of a gram positive bacteremia, will continue treatment with Zosyn (10/09-) and follow cx -Incentive spirometry - Follow CBC (2) Bacteremia due to Gram-positive bacteria ICD Codes: R78.81 - Bacteremia Plan: 10/09 blood culture growing gram positive cocci Blood x from 10/11 negative after 1 day Continue Vanc and Zosyn (3) Weakness ICD Codes: R53.1 - Weakness Status: Acute Plan: Improving Likely multifactorial secondary to metabolic disturbance, infection, and malignancy Continue to replete electrolytes Further evaluation of possible malignancy with renal biopsy Continue IVF hydration and supportive care (4) Kidney mass ICD Codes: N28.89 - Other specified disorders of kidney and ureter Status: Acute Plan: 10/09 CT abdomen and pelvis significant for large solid mass arising from the left kidney measuring 8.7 x 6.9 x 8.6 cm suggestive of renal cell carcinoma Will obtain CT-guided biopsy: This was delayed due to elevated INR, s/p phytonadione 5mg PO once with decrease in INR to 1.5 Discussed with Radiology: Will continue monitoring INR and give Vitamin K PRN to keep INR low in anticipation of CT-guided biopsy on Friday Patient is already established with oncologist. Once pathology is obtained, will likely proceed with further evaluation and treatment as outpatient. (5) Hypokalemia ICD Codes: E87.6 - Hypokalemia Status: Acute Plan: Continue to monitor and replete (6) Cirrhosis ICD Codes: K74.60 - Unspecified cirrhosis of liver Status: Chronic Plan: Likely secondary to history of alcoholism Likely cause of hyponatremia (7) Thrombocytopenia ICD Codes: D69.6 - Thrombocytopenia, unspecified Status: Chronic Plan: This appears to be the patient's baseline per chart review (8) HTN (hypertension) ICD Codes: I10 - HTN (hypertension) Status: Chronic Plan: Continue home amlodipine 10mg PO daily (9) Alcoholism /alcohol abuse ICD Codes: F10.20 - Alcohol dependence, uncomplicated Status: Chronic Plan: Obtain ethanol level [facility] protocol (10) Nutrition, metabolism, and development symptoms ICD Codes: R63.8 - Other symptoms and signs concerning food and fluid intake Status: Acute Plan: Fluids: Tolerating PO Electrolytes: continue to monitor and replete PRN Nutrition: Regular Diet, ensure shakes DVT PPx: Held for thrombocytopenia (Sujey Stephenson MD R1) Problem Qualifiers (1) CAP (community acquired pneumonia): Qualified Codes: J18.1 - Lobar pneumonia, unspecified organism (2) Cirrhosis: Qualified Codes: K70.30 - Alcoholic cirrhosis of liver without ascites (3) HTN (hypertension): Qualified Codes: I10 - Essential (primary) hypertension Suejy Stephenson MD R1 Oct 12, 2017 10:25 Melissa Maharaj MD Oct 13, 2017 07:56
[2017-10-12] MEDS ORDERED: POTASSIUM CHLORIDE 10 MEQ CONTROLLED RELEASE TAB PO ONE (10:30)
[2017-10-12] MEDS ORDERED: PHYTONADIONE 5 MG TAB PO ONE ×2 (13:15→13:30)
[2017-10-12] MEDS ORDERED: PHYTONADIONE 5 MG/SWFI 5 ML ORAL SYR PO ONE (14:15)
[2017-10-13] VITALS (9 sets, daily range): BP systolic 116–147; BP diastolic 64–86; PULSE 84–94; RESP 18–22; TEMP 97.7–98.8; O2SAT 93–100
[2017-10-13 01:38] LABS: HEMOGLOBIN 9.2 GM/DL (13.0-17.0); MEAN CELL VOLUME 95.3 FL (80.0-100.0); MEAN CORPUSCULAR HEMOGLOBIN 32.7 PG (27.0-34.0); MEAN CORPUSCULAR HGB CONC 34.3 % (32.0-36.0); MEAN PLATELET VOLUME 8.6 FL (7.0-11.0); PLATELET COUNT 232 TH/MM3 (150-450); RED BLOOD COUNT 2.83 MIL/MM3 (4.50-5.90); RED CELL DISTRIBUTION WIDTH 14.9 % (11.6-17.2); WHITE BLOOD COUNT 11.6 TH/MM3 (4.0-11.0)
[2017-10-13 01:53] LABS: INTERNATIONAL NORMALIZED RATIO 1.6 RATIO; PROTHROMBIN TIME - PATIENT 16.1 SEC (9.8-11.6)
[2017-10-13 01:58] LABS: ALBUMIN 2.5 GM/DL (3.4-5.0); AST (GOT) 52 U/L (15-37); BICARBONATE 28.2 MEQ/L (21.0-32.0); BLOOD UREA NITROGEN 7 MG/DL (7-18); CALCIUM 8.3 MG/DL (8.5-10.1); CHLORIDE 102 MEQ/L (98-107); CREATININE 0.89 MG/DL (0.60-1.30); GLOMERULAR FILTRATION RATE 106 ML/MIN (>89); GLUCOSE,RANDOM 94 MG/DL (74-106); SODIUM (NA) 137 MEQ/L (136-145)
[2017-10-13 02:00] LABS: ALKALINE PHOSPHATASE 86 U/L (45-117); ALT (GPT) 38 U/L (12-78); TOTAL BILIRUBIN ADULT 1.4 MG/DL (0.2-1.0); TOTAL PROTEIN 7.3 GM/DL (6.4-8.2)
[2017-10-13] MEDS: PIPERACIL-TAZO 3.375 GM PREMIX 50 ML IV SCH ×3 (05:04→15:00)
[2017-10-13] MEDS ORDERED: PHYTONADIONE 5 MG TAB PO ONE (07:00)
--- NOTE | 2017-10-13 09:25 | HHI.FPPN ---
Subjective Remarks Patient doing well, no acute complaints-no abdominal pain, chest pain, or SOB. Looking forward to procedure today. (Sujey Stephenson MD R1) Objective Vitals Vital Signs Date Time Temp Pulse Resp B/P (MAP) Pulse Ox O2 Delivery O2 Flow Rate FiO2 10/13/17 05:00 97.7 88 18 134/72 (92) 100 10/13/17 03:42 94 10/13/17 00:00 98.8 93 18 147/80 (102) 99 10/12/17 23:42 92 10/12/17 20:00 Room Air 10/12/17 20:00 97.8 96 18 151/72 (98) 100 10/12/17 19:37 109 10/12/17 16:00 93 10/12/17 16:00 97.7 99 20 144/81 (102) 100 10/12/17 12:00 95 10/12/17 12:00 97.9 100 20 130/64 (86) 99 10/12/17 10:25 Room Air I/O 10/12/17 10/12/17 10/12/17 10/13/17 10/13/17 10/13/17 07:00 15:00 23:00 07:00 15:00 23:00 Intake Total 420 ml 480 ml Output Total 400 ml Balance 20 ml 480 ml Intake Oral 420 ml 480 ml Output Urine Total 400 ml # Voids 2 2 4 # Bowel Movements 2 (Sujey Stephenson MD R1) Result Diagram: 10/13/17 0131 10/13/17 0131 Objective Remarks GENERAL: Well-nourished, well-developed patient male in no acute distress. SKIN: Warm and dry. HEAD: Normocephalic. EYES: No scleral icterus or drainage. NECK: Supple, trachea midline. No JVD or lymphadenopathy. CARDIOVASCULAR: Regular rate and rhythm without murmurs, gallops, or rubs. RESPIRATORY: No accessory muscle use, lungs clear bilaterally. No wheezes. GASTROINTESTINAL: Abdomen soft, non-tender, nondistended. MUSCULOSKELETAL: No edema. (Sujey Stephenson MD R1) A/P Assessment and Plan Patient is a 57 year old male with a PMH significant for prostate cancer s/p radiation, HTN and alcoholism who presented for weakness and several other ailments and admitted for PNA, new renal mass, and metabolic disturbance. Discharge Planning Anticipate discharge home after bx of renal mass procedure on Friday. (Sujey Stephenson MD R1) Attending Attestation Patient seen and examined. Case reviewed and discussed with the resident team. Agree with plan of care as discussed with me and documented in the resident note. (Melissa Maharaj MD) Problem List: (1) CAP (community acquired pneumonia) ICD Codes: J18.9 - Pneumonia, unspecified organism Status: Acute Plan: Tachycardia resolved Right upper lobar pneumonia on chest x-ray Patchy opacities within the left lower lobe posterior aspect of the left upper lobe consistent with probable pneumonia on chest CT No leukocytosis S/p Vanc 2 doses (10/09-) 10/09 urinary strep antigen positive, legionella negative 10/09 blood culture growing gram positive cocci 10/11 blood cultures negative growth after 1 day Plan: - Given Strep PNA in the setting of a gram positive bacteremia, will continue treatment with Zosyn (10/09-) and follow cx -Incentive spirometry - Follow CBC (2) Bacteremia due to Gram-positive bacteria ICD Codes: R78.81 - Bacteremia Plan: 10/09 blood culture growing gram positive cocci Blood cx from 10/11 negative after 1 day Continue Zosyn (3) Weakness ICD Codes: R53.1 - Weakness Status: Resolved Plan: Improving Likely multifactorial secondary to metabolic disturbance, infection, and malignancy Continue to replete electrolytes Further evaluation of possible malignancy with renal biopsy Continue supportive care (4) Kidney mass ICD Codes: N28.89 - Other specified disorders of kidney and ureter Status: Acute Plan: 10/09 CT abdomen and pelvis significant for large solid mass arising from the left kidney measuring 8.7 x 6.9 x 8.6 cm suggestive of renal cell carcinoma. Discussed w/radiology. Patient is already established with oncologist. Will obtain CT-guided biopsy: This was delayed due to elevated INR, s/p phytonadione 5mg PO once with decrease in INR to 1.5. Once pathology from bx is obtained, will likely proceed with further evaluation and treatment as outpatient. Will continue monitoring INR and give Vitamin K PRN to keep INR low in anticipation of CT-guided biopsy today NPO for procedure (5) Hypokalemia ICD Codes: E87.6 - Hypokalemia Status: Resolved Plan: Continue to monitor and replete (6) Cirrhosis ICD Codes: K74.60 - Unspecified cirrhosis of liver Status: Chronic Plan: Likely secondary to history of alcoholism (7) Thrombocytopenia ICD Codes: D69.6 - Thrombocytopenia, unspecified Status: Resolved Plan: Possibly baseline thrombocytopenic per chart review (8) HTN (hypertension) ICD Codes: I10 - HTN (hypertension) Status: Chronic Plan: Continue home amlodipine 10mg PO daily (9) Alcoholism /alcohol abuse ICD Codes: F10.20 - Alcohol dependence, uncomplicated Status: Chronic Plan: Obtain ethanol level Scores have been 0 DC [facility] protocol (10) Nutrition, metabolism, and development symptoms ICD Codes: R63.8 - Other symptoms and signs concerning food and fluid intake Status: Acute Plan: Fluids: Tolerating PO Electrolytes: continue to monitor and replete PRN Nutrition: Regular Diet, ensure shakes DVT PPx: Held for procedure, elevated baseline INR and possibly thrombocytopenia (Sujey Stephenson MD R1) Problem Qualifiers (1) CAP (community acquired pneumonia): Qualified Codes: J18.1 - Lobar pneumonia, unspecified organism (2) Cirrhosis: Qualified Codes: K70.30 - Alcoholic cirrhosis of liver without ascites (3) HTN (hypertension): Qualified Codes: I10 - Essential (primary) hypertension Sujey Stephenson MD R1 Oct 13, 2017 09:25 Melissa Maharaj MD Oct 13, 2017 19:01
[2017-10-13 10:00] LABS: INTERNATIONAL NORMALIZED RATIO 1.6 RATIO; PROTHROMBIN TIME - PATIENT 16.4 SEC (9.8-11.6)
[2017-10-13] MEDS: MULTIVITAMINS/MINERALS THERAPEUTIC TAB PO SCH (10:24)
[2017-10-13] MEDS: THIAMINE HCL 100 MG TAB PO SCH (10:24)
[2017-10-13] MEDS: MAGNESIUM OXIDE 400 MG TAB PO SCH (10:24)
[2017-10-13] MEDS: FOLIC ACID 1 MG TAB PO SCH (10:24)
[2017-10-13] MEDS: CALCIUM CARBONATE 500 MG CHEWABLE TAB CHEW SCH (10:25)
[2017-10-13] MEDS: SODIUM CHLORIDE 0.9% FLUSH 10 ML FLUSH IV FLUSH SCH (10:25)
[2017-10-13] MEDS ORDERED: fentaNYL CITRATE 250 MCG/5 ML AMP ONE (14:38)
[2017-10-13] MEDS ORDERED: MIDAZOLAM HCL 2 MG/2 ML VIAL ONE (14:38)
--- NOTE | 2017-10-13 15:57 | PD.RAD ---
Post CT Procedure Prog Note Pre Procedure Diagnosis: (1) Kidney mass Post Procedure Diagnosis: (1) Kidney mass Procedure Date: Oct 13, 2017 Supervising Radiologist: Jac Amor Anesthesia: Local, Conscious Sedation Plan of Activity Patient to Unit: Nursing Unit Patient Condition: Good See PACS Report for procedural detail/treatment Biopsy Imaging Guidance: CT Side: Left Biopsy Procedure: Abdominal Mass, Kidney Specimen: Core Biopsy Jac Amor MD Oct 13, 2017 15:57
--- NOTE | 2017-10-13 16:37 | RADRPT ---
EXAM DATE/TIME: 10/13/2017 15:30 [place] COMPARISON: No previous studies available for comparison. INDICATIONS : Mass. SEDATION TIME: 30 minutes BIOPSY SITE: Left kidney MEDICATION(S): 1.) 2 mg midazolam (Versed) IV 2.) 250 mcg fentanyl (Sublimaze) IV DEVICE(S): 1.) 18 gauge Temno core biopsy needle MEDICAL HISTORY : Diverticullitis. prostate cancer SURGICAL HISTORY : None. ENCOUNTER: Initial ACUITY: 1 day PAIN SCORE: 0/10 LOCATION: Bilateral flank A total of three core specimen(s) were obtained and sent to the laboratory for pathologic evaluation. PROCEDURE: 1. CT guided renal biopsy. 2. Conscious sedation with continuous EKG and oximetry monitoring. 3. EKG and oximetry remained stable throughout the procedure. Prior to the procedure informed consent was obtained. Any appropriate prior imaging studies were rev iewed. Using automated exposure control and adjustment of the mA and/or kV according to patient size, radiat ion dose was kept as low as reasonably achievable to obtain optimal diagnostic quality images. DICOM format image data is available electronically for review and comparison. The site was prepped in a sterile fashion. Full sterile technique was used, including cap, mask, nupur rile gloves and gown and a large sterile sheet. Hand hygiene and 2% chlorhexidine and/or betadine/al cohol prep was utilized per protocol for cutaneous antisepsis. The skin and subcutaneous tissues wer e infiltrated with local anesthetic solution. With CT guidance the previously identified target was localized. Biopsy was performed using the presc ribed needle as above. Adequate hemostasis was obtained with compression at the puncture site. Follow-up CT scan reveals no hemorrhage. The patient tolerated the procedure well and there were no complications. The patient was returned to the Radiology Outpatient Unit in stable condition. CONCLUSION: Uncomplicated CT guided biopsy of left renal mass.. Jac Amor MD on October 13, 2017 at 16:34 Board Certified Radiologist. This report was verified electronically.
[2017-10-13] MEDS ORDERED: LEVO750T3 PO (17:15)
[2017-10-13] MEDS ORDERED: AMLO10TA2 PO (17:16)
[2017-10-13] MEDS ORDERED: Calcium Carbonate Chew CHEW (17:18)
[2017-10-13] MEDS ORDERED: MAGN400T2 PO (17:18)
--- NOTE | 2017-10-13 17:19 | HHI.DCPOC ---
Discharge Care Plan Diagnosis: (1) CAP (community acquired pneumonia) (2) Kidney mass Goals to Promote Your Health * To prevent worsening of your condition and complications * To maintain your health at the optimal level Directions to Meet Your Goals Take your medications as prescribed Follow your dietary instruction Follow activity as directed Keep your appointments as scheduled Take your immunizations and boosters as scheduled If your symptoms worsen call your PCP, if no PCP go to Urgent Care Center or Emergency Room Smoking is Dangerous to Your Health. Avoid second hand smoke Call the 24-hour hour crisis hotline for domestic abuse at Cherri Garcia MD, R3 Oct 13, 2017 17:19
--- NOTE | 2017-10-13 17:31 | HHI.DS ---
Discharge Summary Admission Date Oct 09, 2017 at 15:37 Discharge Date: Oct 13, 2017 Admitting Diagnosis PNA, sepsis, hypokalemia (1) CAP (community acquired pneumonia) Diagnosis: Principal Plan: Tachycardia resolved Right upper lobar pneumonia on chest x-ray Patchy opacities within the left lower lobe posterior aspect of the left upper lobe consistent with probable pneumonia on chest CT No leukocytosis S/p Vanc 2 doses (10/09-) 10/09 urinary strep antigen positive, legionella negative 10/09 blood culture growing gram positive cocci 10/11 blood cultures negative growth after 1 day Plan: - Given Strep PNA in the setting of a gram positive bacteremia, will continue treatment with Zosyn (10/09-) and follow cx -Incentive spirometry - Follow CBC ICD Codes: J18.9 - Pneumonia, unspecified organism Status: Acute (2) Kidney mass Diagnosis: Secondary Plan: 10/09 CT abdomen and pelvis significant for large solid mass arising from the left kidney measuring 8.7 x 6.9 x 8.6 cm suggestive of renal cell carcinoma. Discussed w/radiology. Patient is already established with oncologist. Will obtain CT-guided biopsy: This was delayed due to elevated INR, s/p phytonadione 5mg PO once with decrease in INR to 1.5. Once pathology from bx is obtained, will likely proceed with further evaluation and treatment as outpatient. Will continue monitoring INR and give Vitamin K PRN to keep INR low in anticipation of CT-guided biopsy today NPO for procedure ICD Codes: N28.89 - Other specified disorders of kidney and ureter Status: Acute (3) Bacteremia due to Gram-positive bacteria Plan: 10/09 blood culture growing gram positive cocci Blood cx from 10/11 negative after 1 day Continue Zosyn ICD Codes: R78.81 - Bacteremia (4) Weakness Plan: Improving Likely multifactorial secondary to metabolic disturbance, infection, and malignancy Continue to replete electrolytes Further evaluation of possible malignancy with renal biopsy Continue supportive care ICD Codes: R53.1 - Weakness Status: Resolved (5) Hypokalemia Plan: Continue to monitor and replete ICD Codes: E87.6 - Hypokalemia Status: Resolved (6) Cirrhosis Plan: Likely secondary to history of alcoholism ICD Codes: K74.60 - Unspecified cirrhosis of liver Status: Chronic (7) Thrombocytopenia Plan: Possibly baseline thrombocytopenic per chart review ICD Codes: D69.6 - Thrombocytopenia, unspecified Status: Resolved (8) HTN (hypertension) Plan: Continue home amlodipine 10mg PO daily ICD Codes: I10 - HTN (hypertension) Status: Chronic (9) Alcoholism /alcohol abuse Plan: Obtain ethanol level Scores have been 0 DC [facility] protocol ICD Codes: F10.20 - Alcohol dependence, uncomplicated Status: Chronic (10) Nutrition, metabolism, and development symptoms Plan: Fluids: Tolerating PO Electrolytes: continue to monitor and replete PRN Nutrition: Regular Diet, ensure shakes DVT PPx: Held for procedure, elevated baseline INR and possibly thrombocytopenia ICD Codes: R63.8 - Other symptoms and signs concerning food and fluid intake Status: Acute Procedures CT guided left renal biopsy 10/13/17 Brief History On admission: Patient is a 57 year old male with a PMH significant for HTN and alcoholism who presents today for weakness and several other ailments. He complains of poor appetite (has not eaten in >1 week), insomnia, weakness for the past week, headache, bilateral lower extremity swelling and pain (they feel like they have no blood flow). He has lost 15-25 lbs in the past week. He has been tolerating liquids. He has been trying to eat, but when he takes a bite it causes epigastric pain. He has also had nausea and vomiting every day. He has 3-4 episodes of emesis each day for the past week. The emesis is non-bloody but does appear yellowish. He is not sure when his symptoms started, but thinks they may have started about 3 weeks ago. These symptoms have progressively worsened, and for the past week, his symptoms have become unbearable. He notes some improvement in symptoms since being treated in the ED. However, he continues to have a headache and a cough. He notes that whenever he coughs, he has pain in his right chest. When he coughs, he has to cough softly or it is very painful in his chest. His cough is productive of whitish sputum. His cough started 4 days ago and has been progressively worsening. The cough is frequent throughout the day and night. He also endorses shortness breath that started about a week ago. He has been having chills, malaise, subjective fever. A year ago, he weighed 173 lbs, he now weighs 60kg. In terms of headache , the pain is located across his forehead and described as a pressure. He denies any blurry vision or vision changes. He has never had a headache like this before. The headache is constant over the past week. Over the past week, when he tries to urinate, he seems to also have a bowel movement and has had to start sitting on the commode with every void just in case. CBC/BMP: 10/13/17 0131 10/13/17 0131 Significant Findings Laboratory Tests Test 10/11/17 08:35 10/11/17 08:45 10/11/17 17:07 10/12/17 06:27 Calcium Level 7.7 MG/DL (8.5-10.1) 8.2 MG/DL (8.5-10.1) Potassium Level 2.7 MEQ/L (3.5-5.1) 3.0 MEQ/L (3.5-5.1) 3.1 MEQ/L (3.5-5.1) Magnesium Level 1.1 MG/DL (1.5-2.5) Red Blood Count 2.94 MIL/MM3 (4.50-5.90) 2.98 MIL/MM3 (4.50-5.90) Hemoglobin 9.8 GM/DL (13.0-17.0) 9.9 GM/DL (13.0-17.0) Hematocrit 28.7 % (39.0-51.0) 28.6 % (39.0-51.0) Platelet Count 128 TH/MM3 (150-450) Prothrombin Time 14.3 SEC (9.8-11.6) 15.3 SEC (9.8-11.6) Monocytes (%) (Auto) 19.6 % (0.0-8.0) Monocytes # (Auto) 1.6 TH/MM3 (0-0.9) Albumin 2.3 GM/DL (3.4-5.0) Aspartate Amino Transf (AST/SGOT) 68 U/L (15-37) Total Bilirubin 1.6 MG/DL (0.2-1.0) Test 10/13/17 01:31 10/13/17 09:40 White Blood Count 11.6 TH/MM3 (4.0-11.0) Red Blood Count 2.83 MIL/MM3 (4.50-5.90) Hemoglobin 9.2 GM/DL (13.0-17.0) Hematocrit 27.0 % (39.0-51.0) Prothrombin Time 16.1 SEC (9.8-11.6) 16.4 SEC (9.8-11.6) Albumin 2.5 GM/DL (3.4-5.0) Calcium Level 8.3 MG/DL (8.5-10.1) Aspartate Amino Transf (AST/SGOT) 52 U/L (15-37) Total Bilirubin 1.4 MG/DL (0.2-1.0) Imaging Last Impressions Abdomen/Pelvis CT 10/09/17 1248 Signed Impressions: Service Date/Time: September 14:32 - CONCLUSION: 1. Large solid mass arising from the left kidney measuring 8.7 x 6.9 x 8.6 cm suggestive of renal cell carcinoma until proven otherwise. Percutaneous biopsy this lesion could be performed if requested. 2. Patchy opacity within the left lower lobe consistent with possible pneumonia. 3. Nodular heterogeneous liver suggestive of cirrhosis. 4. Mild degenerative changes are noted involving the hip joints bilaterally. Parveen Vogel MD Chest X-Ray 10/09/17 0000 Signed Impressions: Service Date/Time: September 13:10 - CONCLUSION: Focal alveolar consolidation of the right upper lobe consistent with probable lobar pneumonia. Clinical correlation is recommended. Parveen Vogel MD Chest CT 10/09/17 0000 Signed Impressions: Service Date/Time: September 14:32 - CONCLUSION: Alveolar consolidation within the right upper lobe and less severe patchy opacities within the left lower lobe and posterior aspect of the left upper lobe consistent with probable pneumonia. Parveen Vogel MD PE at Discharge GENERAL: Well-nourished, well-developed patient male in no acute distress. SKIN: Warm and dry. HEAD: Normocephalic. EYES: No scleral icterus or drainage. NECK: Supple, trachea midline. No JVD or lymphadenopathy. CARDIOVASCULAR: Regular rate and rhythm without murmurs, gallops, or rubs. RESPIRATORY: No accessory muscle use, lungs clear bilaterally. No wheezes. GASTROINTESTINAL: Abdomen soft, non-tender, nondistended. MUSCULOSKELETAL: No edema. Hospital Course Patient is a 57 year old male with a PMH significant for prostate cancer s/p radiation, HTN and alcoholism who presented for weakness and several other ailments and was admitted for CAP, new renal mass, and metabolic disturbance. In terms of community-acquired pneumonia, urine streptococcus antigen was positive and patient was treated with broad-spectrum antibiotics initially with IV vancomycin and Zosyn due to concern for multiple infections and was transitioned to Zosyn and then oral Levaquin. He showed significant clinical improvement with antibiotic treatment. On admission, he was also found to have a large solid mass arising from the left kidney measuring 8.7 x 6.9 x 8.6 cm suggestive of renal cell carcinoma on abdomen/pelvis CT. CT-guided biopsy of the mass was delayed by elevated INR secondary to cirrhosis, and he was given vitamin K until the INR reached an acceptable range for the procedure. The CT guided biopsy of the left renal mass was performed on 10/13/17. On admission, patient was also found to have hypokalemia and hyponatremia. Further evaluation was significant for low magnesium and calcium levels as well. He was treated with potassium, magnesium, and calcium supplementation with improvement in his weakness. He was monitored throughout his hospital stay with the CIWA protocol but did not require any interventions in this regard. During his hospitalization, he was also found to have 1 positive blood culture growing staph species coagulase negative that was felt to be likely a contaminant. Repeat blood cultures x 2 showed no growth. He is discharged home today on the medications listed below. He will follow-up with his oncologist and PCP in the next week. Records have been requested so that he can bring records from this hospitalization with him to his appointments. The pathology report is pending at this time. Pt Condition on Discharge: Stable Discharge Disposition: Discharge Home Discharge Instructions DIET: Follow Instructions for: As Tolerated, No Restrictions Activities you can perform: Regular-No Restrictions Follow up Referrals: Oncology - 1 Week PCP Follow-up - 1 Week New Medications: Levofloxacin (Levofloxacin) 750 Mg Tablet 750 MG PO DAILY for Infection, #3 TAB 0 Refills Magnesium Oxide (Magnesium Oxide) 400 Mg Tab 400 MG PO Q12HR, #60 TAB [Calcium Carbonate Chew] () 500 MG CHEW 500 MG CHEW Q12HR, #60 Continued Medications: Amlodipine (Amlodipine) 10 Mg Tab 10 MG PO DAILY for Blood Pressure Management, #30 TAB 0 Refills Cherri Garcia MD, R3 Oct 13, 2017 17:31
== END 2017-10-13 18:43 | disposition home or self-care (01) | DRG 194 ==
LOC: NEPC 12:24 → NEDA 15:37 → N04B 20:31
PROVIDERS: ADMIT Family Medicine; ATTEND Family Medicine
PROC: 0TB13ZX Excision of Left Kidney, Percutaneous Approach, Diagnostic (ICD-10-PCS; principal; 2017-10-13)
DX: J15.4 Pneumonia due to other streptococci (principal); E87.1 Hypo-osmolality and hyponatremia; D69.6 Thrombocytopenia, unspecified; K70.30 Alcoholic cirrhosis of liver without ascites; E87.6 Hypokalemia; I10 Essential (primary) hypertension; R00.0 Tachycardia, unspecified; D64.9 Anemia, unspecified; R19.00 Intra-abdominal and pelvic swelling, mass and lump, unspecified site; G47.00 Insomnia, unspecified; B96.89 Other specified bacterial agents as the cause of diseases classified elsewhere; R63.0 Anorexia; F10.20 Alcohol dependence, uncomplicated; F12.90 Cannabis use, unspecified, uncomplicated; R53.1 Weakness; Z85.46 Personal history of malignant neoplasm of prostate; Z92.3 Personal history of irradiation
CPT/HCPCS: 50200; 71045; 71260; 74177; 77012; 80048; 80053; 80307; 81001; 82140; 82550; 83605; 83690; 83735; 84100; 84132; 84155; 84484; 85007; 85025; 85027; 85610; 85730; 87040; 87077; 87086; 87186; 87205; 87449; 88305; 88307; 93005; 94150; 96361; 96365; 96375; 99152; 99153; J0610; J2250; J2405; J2543; J3010; J3370; J7030; J7040; J7050; Q9967

== ENCOUNTER 2017-12-30 05:41 | Inpatient (IN) | payer OTHER ==
[~2017-12-30] VITALS: Ht 180.3 cm; Wt 68.0 kg
[~2017-12-30 05:41] MED LIST changes: +AMLO10TA2 PO; +Calcium Carbonate Chew CHEW; +LEVO750T3 PO; +MAGN400T2 PO; -PRED20 PO
[2017-12-30] MEDS ORDERED: SODIUM CHLORID 0.9% 500 ML IV PRN (06:15)
[2017-12-30] MEDS ORDERED: CHLORHEXIDINE GLUCONATE 2 % 1 PACK (2 CLOTHS) TOPICAL PRN (06:15)
[2017-12-30] MEDS ORDERED: LACTATED RINGER'S 1000 ML IV PRN (06:15)
[2017-12-30] MEDS ORDERED: METOPROLOL TARTRATE 25 MG TAB PO PRN (06:15)
[2017-12-30] MEDS ORDERED: POVIDONE IODINE 5% (ANTISEPSIS KIT) 4 APPLICATIONS EACH NARE PRN (06:15)
[2017-12-30] MEDS ORDERED: ACETAMINOPHEN 1000 MG/100 ML 100 ML IV ONE (06:17)
[2017-12-30] MEDS: ceFAZolin 1,000 MG/NS 100 ML IV SCH ×4 (08:15→12:22)
[2017-12-30] MEDS ORDERED: FUROSEMIDE 40 MG/4 ML VIAL ONE (08:26)
[2017-12-30] MEDS ORDERED: HYDROmorphone HCL PF 2 MG/ML VIAL ONE (10:54)
[2017-12-30] MEDS ORDERED: ONDANSETRON HCL 4 MG/2 ML VIAL IV ONE (12:00)
[2017-12-30] MEDS ORDERED: ROCURONIUM INJ 50 MG/5 ML SYRINGE IV PUSH ONE (12:00)
[2017-12-30] MEDS ORDERED: ESMOLOL HCL 100 MG/10 ML VIAL IV ONE (12:00)
[2017-12-30] MEDS ORDERED: ceFAZolin INJ 1,000 MG VIAL IV ONE (12:00)
[2017-12-30] MEDS ORDERED: PROPOFOL 200 MG/20 ML AMP IV ONE (12:00)
[2017-12-30] MEDS ORDERED: GLYCOPYRROLATE 1 MG/5 ML SYRINGE IV PUSH ONE (12:00)
[2017-12-30] MEDS ORDERED: LIDOCAINE HCL 1% PF 5 ML SYRINGE OTHER ONE (12:00)
[2017-12-30] MEDS ORDERED: DEXAMETHASONE SOD PHOS 4 MG/ML VIAL IV ONE (12:00)
[2017-12-30] MEDS ORDERED: PHENYLEPH/NS 1000 MCG/10 ML SYR IV ONE (12:00)
[2017-12-30] MEDS ORDERED: PHENYLEPHRINE HCL 10 MG/ML VIAL IV ONE (12:00)
[2017-12-30] MEDS ORDERED: STERILE WATER FOR INJECTION 20 ML VIAL IV ONE (12:00)
[2017-12-30] MEDS ORDERED: VECURONIUM BROMIDE 20 MG VIAL IV ONE (12:00)
[2017-12-30] MEDS ORDERED: METOPROLOL TARTRATE 5 MG/5 ML VIAL IV ONE (12:00)
[2017-12-30] MEDS ORDERED: LACTATED RINGER'S 1000 ML INJ 1,000 ML IV ONE (12:00)
[2017-12-30] MEDS ORDERED: SUGAMMADEX SODIUM 200 MG/2 ML VIAL IV PUSH ONE (14:08)
--- NOTE | 2017-12-30 15:09 | PD.OP ---
Operative Report Date of Surgery: Dec 30, 2017 Preoperative Diagnosis: (1) Renal cell carcinoma of left kidney Postoperative Diagnosis: (1) Renal cell carcinoma of left kidney Procedure: Robot-assisted laparoscopic left radical nephrectomy Anesthesia: General Surgeon: Wilman Sinha Matrix Bath Operator(s): Hany Boo Operation and Findings: Indication for procedure: Case of a pleasant 57-year-old gentleman with a 9 cm left lower pole renal mass biopsy proven to be renal cell carcinoma who presents today to undergo a robot-assisted laparoscopic left radical nephrectomy. Operative procedure in detail: Patient was brought to the operating room suite placed supine on the OR table. He was then placed under general anesthesia. He was then repositioned in the right lateral recumbent position and the table was flexed at the pelvis to separate the pelvis from the bony thorax. The patient was then held in this position with the beanbag. All pressure points were adequately padded and the patient secured. He was then prepped and draped in normal sterile fashion. After appropriate timeout was undertaken I proceeded with creating a pneumoperitoneum with the Veress needle in standard fashion. The pneumoperitoneum was held at 15 mmHg and the camera port was placed with the visual obturator. Once the camera port was in place the remaining 3 robotic arm ports and the occupational therapist's assistant port were placed in standard fashion under direct vision. With all the ports in place, the robot was docked. I repositioned myself over at the surgeon's console and Dr. Boo remained at the bedside to activities assistant. Then proceeded to mobilize the left colon with sharp and blunt dissection to expose the retroperitoneum. The colon was quite fixed and it was a tedious dissection to mobilize the colon medially. Once the retroperitoneum was entered I proceeded with mobilization of the left kidney starting inferiorly and working upwards towards the renal hilum. The left ureter was identified and tracked towards the hilum until the hilar vessels were identified. The renal artery and vein were then divided and ligated with the endovascular stapling device. The kidney was then further mobilized both sharply and bluntly until it was totally free of all attachments. It was subsequently placed in an Endo Catch specimen bag. The pneumoperitoneum was dropped down to 5 mmHg and careful inspection was made for active bleeding none was noted. 3 g of Sam was administered in the left renal bed. A 10 mm Dannie drain was then placed via 1 of the robotic arm ports. At this point in time the robot was undocked and I repositioned myself over at the bedside. The camera port and the occupational therapist's assistant port were connected with a #10 blade to create one incision and the underlying fascia was transected as well. The specimen was then removed and sent off to pathology. This midline incision was then closed with #1 PDS suture to reapproximate the fascia and the skin edges were reapproximated in subcuticular fashion utilizing 4-0 undyed Vicryl. The remaining 2 robotic arm port sites were closed in similar fashion with 4-0 Vicryl as well. Sterile dressings were placed over all wound sites. The patient tolerated the procedure without complications and estimated blood loss was 200 cc. The patient was transferred to the PACU in satisfactory condition having tolerated the procedure well. Wilman Sinha MD Dec 30, 2017 15:09
[2017-12-30] MEDS ORDERED: NALOXONE HCL 0.4 MG/ML AMP IV PUSH PRN ×2 (15:15)
[2017-12-30] MEDS ORDERED: SODIUM CHLORIDE 0.9% FLUSH 10 ML FLUSH IV FLUSH PRN (15:15)
[2017-12-30] MEDS ORDERED: Post-op Orders (for Pharmacy) XX ONE (15:15)
[2017-12-30] MEDS ORDERED: diphenhydrAMINE HCL 50 MG/ML VIAL IV PUSH PRN (15:15)
[2017-12-30] MEDS ORDERED: diphenhydrAMINE HCL 25 MG CAP PO PRN (15:15)
[2017-12-30] MEDS ORDERED: ONDANSETRON ODT 4 MG TAB PO PRN (15:30)
[2017-12-30] MEDS ORDERED: DO NOT ADM ANY ANTICOAGULANT DRUGS PRN (15:31)
[2017-12-30] MEDS ORDERED: MIDAZOLAM HCL 2 MG/2 ML VIAL ONE (15:38)
[2017-12-30] MEDS: DEXT 5%-NACL 0.45% 1000 ML INJ 1,000 ML IV SCH ×2 (15:50→23:38)
[2017-12-30] MEDS ORDERED: NACL 0.45% IV SCH ×2 (16:00)
[2017-12-30] MEDS ORDERED: DEXT IV SCH ×2 (16:00)
[2017-12-30] MEDS ORDERED: DEXTROSE 5% IV SCH ×2 (16:00)
[2017-12-30] MEDS ORDERED: WATER IV SCH ×2 (16:00)
[2017-12-30] MEDS: HYDROmorphone HCL PCA 6 MG/30 ML IV SCH (17:58)
[2017-12-30 18:05] VITALS: BP 162/96; PULSE 104; RESP 18; TEMP 97.3; O2SAT 100
[2017-12-30 20:00] VITALS: BP 151/85; PULSE 98; RESP 18; TEMP 97.8; O2SAT 99
[2017-12-30] MEDS: SODIUM CHLORIDE 0.9% FLUSH 10 ML FLUSH IV FLUSH SCH (20:04)
[2017-12-30 22:00] VITALS: RESP 18
[2017-12-31] VITALS: BP 177/94; PULSE 77; RESP 18; TEMP 97.6; O2SAT 100
[2017-12-31] MEDS: HYDROmorphone HCL PCA 6 MG/30 ML IV SCH ×2 (00:52→16:23)
[2017-12-31 04:20] VITALS: BP 165/87; PULSE 79; RESP 18; TEMP 97.1; O2SAT 99
[2017-12-31] MEDS: PCA - TOTAL MG DILAUDID DELIVERED PER SHIFT IV SCH ×3 (06:00→21:32)
[2017-12-31 08:00] VITALS: BP 182/71; PULSE 73; RESP 18; TEMP 98.6; O2SAT 99
[2017-12-31] MEDS: DEXT 5%-NACL 0.45% 1000 ML INJ 1,000 ML IV SCH ×3 (08:30→23:59)
[2017-12-31 08:32] LABS: HEMATOCRIT 33.3 % (39.0-51.0)
[2017-12-31] MEDS: SODIUM CHLORIDE 0.9% FLUSH 10 ML FLUSH IV FLUSH SCH ×2 (08:59→21:00)
[2017-12-31] MEDS: MAGNESIUM OXIDE 400 MG TAB PO SCH ×2 (08:59→21:31)
[2017-12-31 09:13] LABS: BICARBONATE 26.1 MEQ/L (21.0-32.0); CREATININE 1.61 MG/DL (0.60-1.30)
--- NOTE | 2017-12-31 10:20 | HHI.PR ---
Subjective Patient symptoms today Postoperative day #1 Complain of pain involving the right scapular region Denies flatus or bowel movement Denies nausea or vomiting Objective Vital Signs Vital Signs Date Time Temp Pulse Resp B/P (MAP) Pulse Ox O2 Delivery O2 Flow Rate FiO2 12/31/17 08:00 98.6 73 18 182/71 (108) 99 12/31/17 06:00 18 12/31/17 04:20 97.1 79 18 165/87 (113) 99 12/31/17 00:52 18 12/31/17 00:00 97.6 77 18 177/94 (121) 100 12/30/17 22:00 18 12/30/17 20:00 97.8 98 18 151/85 (107) 99 12/30/17 18:05 97.3 104 18 162/96 (118) 100 12/30/17 17:58 14 12/30/17 17:30 98 14 158/86 (110) 100 Nasal Cannula 2 12/30/17 17:00 101 14 161/89 (113) 100 Nasal Cannula 2 12/30/17 16:15 106 14 166/94 (118) 100 Nasal Cannula 2 12/30/17 16:00 110 14 160/94 (116) 100 Nasal Cannula 2 12/30/17 15:45 109 14 162/94 (116) 100 Nasal Cannula 2 12/30/17 15:29 98.1 114 14 164/96 (118) 100 Nasal Cannula 2 Intake & Output 12/31/17 12/31/17 07:00 19:00 Intake Total 1200 ml Output Total 2120 ml Balance -920 ml Intake IV Total 1200 ml Output Urine Total 2000 ml Drainage Total 120 ml Result Diagram: 12/31/17 0611 12/31/17 0611 Objective Remarks Abdomen soft, mild to moderately distended, wound sites intact with small amount of serosanguineous drainage noted at midline incision site Extremities well-perfused, nontender Medications and IVs Current Medications Medications (Trade) Dose Ordered Sig/Dara Route Start Time Stop Time Status Last Admin Cefazolin Sodium 1000 mg/Sodium Chloride 100 ml @ 200 mls/hr CANAL DRIVER IV 12/30/17 06:15 01/02/18 06:14 12/30/17 12:22 Lactated Ringer's 1,000 ml @ 30 mls/hr Q24H PRN IV 12/30/17 06:15 01/02/18 06:14 12/30/17 07:02 Sodium Chloride 500 ml @ 30 mls/hr [id number] PRN IV 12/30/17 06:15 01/02/18 06:14 (Lopressor) 25 mg CANAL DRIVER PRN PO 12/30/17 06:15 01/02/18 06:14 (Betadine 5% Antisepsis Kit) 1 applic CANAL DRIVER PRN EACH NARE 12/30/17 06:15 01/02/18 06:14 12/30/17 07:02 (Chlorhexidine 2% Cloth) 3 pack CANAL DRIVER PRN TOPICAL 12/30/17 06:15 01/02/18 06:14 12/30/17 07:02 (NS Flush) 2 ml UNSCH PRN IV FLUSH 12/30/17 15:15 (NS Flush) 2 ml BID IV FLUSH 12/30/17 21:00 (Zofran Odt) 4 mg Q6H PRN PO 12/30/17 15:30 Cefazolin Sodium 1000 mg/Sodium Chloride 100 ml @ 200 mls/hr Q8H IV 12/30/17 20:00 12/31/17 12:29 12/31/17 03:04 (Narcan Inj) 0.4 mg UNSCH PRN IV PUSH 12/30/17 15:15 (Narcan Inj) 0.4 mg UNSCH PRN IV PUSH 12/30/17 15:15 (Benadryl Inj) 25 mg Q6H PRN IV PUSH 12/30/17 15:15 (Benadryl) 25 mg Q6H PRN PO 12/30/17 15:15 (Dilaudid SALES COUNSELOR Inj) 6 mg UNSCH IV 12/30/17 15:15 12/31/17 00:52 ([facility] Nursing Information) ALL NURSING DEPARTME... UNSCH PRN .XX 12/30/17 15:31 12/31/17 15:30 Dextrose/Sodium Chloride 1,000 ml @ 125 mls/hr Q8H IV 12/30/17 16:30 12/31/17 08:30 SALES COUNSELOR Dosage Infused (Pha) 1 Q8HR IV 12/31/17 06:00 12/31/17 06:00 (Norvasc) 10 mg DAILY PO 12/31/17 09:00 12/31/17 08:58 (Mag-Ox) 400 mg Q12HR PO 12/31/17 09:00 12/31/17 08:59 Assessment and Plan Assessment and Plan Urologic impression: 1. Status post robot-assisted laparoscopic left radical nephrectomy with expected postop course 2. Hemodynamically stable 3. Hypokalemia Plan: 1. Replace potassium and repeat BMP 2. Clear liquid diet as tolerated 3. Out of bed 4. DC FRANTZ drain 5. Check pathology when available Wilman Sinha MD Dec 31, 2017 10:20
[2017-12-31] MEDS: POTASSIUM CHLOR 20 MEQ PREMIX 100 ML IV SCH ×3 (11:30→16:30)
[2017-12-31 12:00] VITALS: BP 153/80; PULSE 90; RESP 17; TEMP 98.3; O2SAT 98
[2017-12-31 14:53] LABS: BICARBONATE 25.6 MEQ/L (21.0-32.0); CALCIUM 7.6 MG/DL (8.5-10.1); CREATININE 1.39 MG/DL (0.60-1.30)
[2017-12-31 16:00] VITALS: BP 169/81; PULSE 83; RESP 17; TEMP 98; O2SAT 97
[2017-12-31 20:00] VITALS: BP 151/84; PULSE 100; RESP 17; TEMP 98.1; O2SAT 97
[2018-01-01] VITALS: BP 147/72; PULSE 110; RESP 17; TEMP 97.9; O2SAT 95
[2018-01-01 04:00] VITALS: BP 140/73; PULSE 109; RESP 17; TEMP 97.7; O2SAT 94
[2018-01-01] MEDS: PCA - TOTAL MG DILAUDID DELIVERED PER SHIFT IV SCH ×3 (05:28→20:49)
[2018-01-01] MEDS: SODIUM CHLORIDE 0.9% FLUSH 10 ML FLUSH IV FLUSH SCH ×2 (07:38→20:47)
[2018-01-01 08:00] VITALS: BP 144/81; PULSE 88; RESP 16; TEMP 98.3; O2SAT 97
[2018-01-01] MEDS: MAGNESIUM OXIDE 400 MG TAB PO SCH ×2 (08:15→20:49)
[2018-01-01] MEDS: DEXT 5%-NACL 0.45% 1000 ML INJ 1,000 ML IV SCH ×3 (08:28→20:46)
[2018-01-01] MEDS: HYDROmorphone HCL PCA 6 MG/30 ML IV SCH (08:28)
[2018-01-01 12:00] VITALS: BP 159/86; PULSE 89; RESP 17; TEMP 98; O2SAT 95
--- NOTE | 2018-01-01 12:10 | HHI.PR ---
Subjective Patient symptoms today Postoperative day #2 Feeling better today Denies passing flatus or having a bowel movement Tolerating clear liquid diet Objective Vital Signs Vital Signs Date Time Temp Pulse Resp B/P (MAP) Pulse Ox O2 Delivery O2 Flow Rate FiO2 01/01/18 08:00 98.3 88 16 144/81 (102) 97 01/01/18 05:28 18 01/01/18 04:00 97.7 109 17 140/73 (95) 94 01/01/18 00:00 97.9 110 17 147/72 (97) 95 12/31/17 21:32 18 12/31/17 20:00 98.1 100 17 151/84 (106) 97 12/31/17 16:23 18 12/31/17 16:00 98.0 83 17 169/81 (110) 97 12/31/17 14:00 18 Intake & Output 01/01/18 01/01/18 07:00 19:00 Intake Total 1240 ml 100 ml Output Total 2000 ml Balance -760 ml 100 ml Intake Oral 240 ml IV Total 1000 ml 100 ml Output Urine Total 2000 ml # Bowel Movements 0 Result Diagram: 12/31/17 0611 12/31/17 1359 Objective Remarks Abdomen soft, moderately distended, wound sites intact with small amount of serosanguineous drainage noted at midline incision site Extremities well-perfused, nontender Jenkins catheter draining clear yellow urine Medications and IVs Current Medications Medications (Trade) Dose Ordered Sig/Dara Route Start Time Stop Time Status Last Admin Cefazolin Sodium 1000 mg/Sodium Chloride 100 ml @ 200 mls/hr DESIZING PAD OPERATOR IV 12/30/17 06:15 01/02/18 06:14 12/30/17 12:22 Lactated Ringer's 1,000 ml @ 30 mls/hr Q24H PRN IV 12/30/17 06:15 01/02/18 06:14 12/30/17 07:02 Sodium Chloride 500 ml @ 30 mls/hr [id number] PRN IV 12/30/17 06:15 01/02/18 06:14 (Lopressor) 25 mg DESIZING PAD OPERATOR PRN PO 12/30/17 06:15 01/02/18 06:14 (Betadine 5% Antisepsis Kit) 1 applic DESIZING PAD OPERATOR PRN EACH NARE 12/30/17 06:15 01/02/18 06:14 6/12/18 07:02 (Chlorhexidine 2% Cloth) 3 pack DESIZING PAD OPERATOR PRN TOPICAL 12/30/17 06:15 01/02/18 06:14 12/30/17 07:02 (NS Flush) 2 ml UNSCH PRN IV FLUSH 12/30/17 15:15 (NS Flush) 2 ml BID IV FLUSH 12/30/17 21:00 (Zofran Odt) 4 mg Q6H PRN PO 12/30/17 15:30 (Narcan Inj) 0.4 mg UNSCH PRN IV PUSH 12/30/17 15:15 (Benadryl Inj) 25 mg Q6H PRN IV PUSH 12/30/17 15:15 (Benadryl) 25 mg Q6H PRN PO 12/30/17 15:15 12/31/17 16:30 (Dilaudid CANDY MIXER Inj) 6 mg UNSCH IV 12/30/17 15:15 01/01/18 08:28 Dextrose/Sodium Chloride 1,000 ml @ 125 mls/hr Q8H IV 12/30/17 16:30 01/01/18 08:28 CANDY MIXER Dosage Infused (Pha) 1 Q8HR IV 12/31/17 06:00 01/01/18 05:28 (Norvasc) 10 mg DAILY PO 12/31/17 09:00 01/01/18 08:15 (Mag-Ox) 400 mg Q12HR PO 12/31/17 09:00 01/01/18 08:15 Assessment and Plan Assessment and Plan Urologic impression: 1. Status post robot-assisted laparoscopic left radical nephrectomy with expected postop course 2. Hemodynamically stable Plan: 1. DC Jenkins catheter 2. Clear liquid diet as tolerated 3. Ambulate with assistance 4. Dulcolax suppository 5. Check pathology when available Wilman Sinha MD Jan 01, 2018 12:10
[2018-01-01] MEDS ORDERED: BISACODYL 10 MG SUPP RECTAL ONE (12:15)
[2018-01-01 14:14] LABS: BICARBONATE 26.7 MEQ/L (21.0-32.0); CALCIUM 7.4 MG/DL (8.5-10.1); CREATININE 1.14 MG/DL (0.60-1.30)
[2018-01-01 14:36] LABS: TOTAL PROTEIN 7.7 GM/DL (6.4-8.2)
[2018-01-01 14:38] LABS: CALCIUM-PROTEIN CORRECTED 7.2 MG/DL (8.5-10.1)
[2018-01-01 16:00] VITALS: BP 130/81; PULSE 120; RESP 18; TEMP 97.7; O2SAT 96
[2018-01-01 20:00] VITALS: BP 172/95; PULSE 104; RESP 17; TEMP 97.9; O2SAT 99
[2018-01-02] VITALS: BP 137/86; PULSE 106; RESP 17; TEMP 98.5; O2SAT 97
[2018-01-02 04:00] VITALS: BP 159/84; PULSE 109; RESP 17; TEMP 98.6; O2SAT 93
[2018-01-02] MEDS: DEXT 5%-NACL 0.45% 1000 ML INJ 1,000 ML IV SCH ×2 (05:25→14:05)
[2018-01-02] MEDS: PCA - TOTAL MG DILAUDID DELIVERED PER SHIFT IV SCH ×3 (05:25→21:52)
[2018-01-02] MEDS: SODIUM CHLORIDE 0.9% FLUSH 10 ML FLUSH IV FLUSH SCH ×2 (07:02→21:52)
[2018-01-02 08:00] VITALS: BP 132/76; PULSE 97; RESP 17; TEMP 99; O2SAT 99
[2018-01-02] MEDS: MAGNESIUM OXIDE 400 MG TAB PO SCH ×2 (09:09→21:52)
[2018-01-02 09:43] LABS: BICARBONATE 25.4 MEQ/L (21.0-32.0); CALCIUM 7.4 MG/DL (8.5-10.1); CREATININE 1.04 MG/DL (0.60-1.30)
[2018-01-02 09:59] LABS: TOTAL PROTEIN 7.3 GM/DL (6.4-8.2)
[2018-01-02 10:08] LABS: CALCIUM-PROTEIN CORRECTED 7.4 MG/DL (8.5-10.1)
--- NOTE | 2018-01-02 11:42 | PD.CONS ---
HPI Service [facility] Hospitalists Consult Requested By Urology Reason for Consult Hypercalcemia Primary Care Physician Chyna Boo MD Diagnoses: History of Present Illness 57 years old male with history of prostate cancer currently with clear renal cell carcinoma status post left nephrectomy POD #3, urology service requesting hospitalist consult due to hypocalcemia, patient denied any history of parathyroid problems, currently corrected calcium is 7.4 potassium of 3 we do not have magnesium or albumin level I ordered a stat, I will check PTH as well, patient told me he had a history of prostate cancer he had radiation therapy and surgery. Currently he is doing well postop no fever chills short of breath chest pain no muscle twitching or spasm no seizure. 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 Hypertension Prostate cancer Past Surgical History Cholecystectomy He just had left nephrectomy Family History Review with the patient,not aware of significant medical history related to her problem runs in the family Social History Denied tobacco abuse, he drinks daily 8 beers, positive for marijuana Physical Exam Vital Signs Vital Signs Date Time Temp Pulse Resp B/P (MAP) Pulse Ox O2 Delivery O2 Flow Rate FiO2 01/02/18 08:00 99.0 97 17 132/76 (94) 99 01/02/18 05:25 19 01/02/18 04:00 98.6 109 17 159/84 (109) 93 01/02/18 00:00 98.5 106 17 137/86 (103) 97 01/01/18 20:49 18 01/01/18 20:00 97.9 104 17 172/95 (120) 99 01/01/18 16:00 97.7 120 18 130/81 (97) 96 01/01/18 12:00 98.0 89 17 159/86 (110) 95 Physical Exam GENERAL: This is a well-nourished, well-developed patient, in no apparent distress. SKIN: No rashes, warm and dry HEAD: Atraumatic. Normocephalic. EYES: Pupils equal round and reactive. Extraocular motions intact. No scleral icterus. ENT: Nose without bleeding, or drainage, Airway patent. NECK: Trachea midline. Supple CARDIOVASCULAR: Regular rate and rhythm without murmurs, gallops, or rubs. RESPIRATORY: Fair air entry bilaterally. No wheezes, rales, or rhonchi. GASTROINTESTINAL: Abdomen soft, non-tender, nondistended. Positive bowel sounds , surgical scar from laparoscopy noticed MUSCULOSKELETAL: Extremities without clubbing, cyanosis, or edema. Pedal pulses appreciated NEUROLOGICAL: Awake and alert. Moves all extremity. Normal speech.no focal neurological deficit Laboratory Laboratory Tests Test 01/01/18 13:14 01/02/18 06:28 Blood Urea Nitrogen 4 4 Creatinine 1.14 1.04 Random Glucose 106 115 Total Protein 7.7 7.3 Calcium Level 7.4 7.4 Sodium Level 134 135 Potassium Level 3.3 3.0 Chloride Level 97 98 Carbon Dioxide Level 26.7 25.4 Anion Gap 10 12 Estimat Glomerular Filtration Rate 80 89 Protein Corrected Calcium 7.2 7.4 Result Diagram: 12/31/17 0611 01/02/18 0628 Assessment and Plan Assessment and Plan 57 years old female with left clear renal cell carcinoma in the left kidney admitted under urology service for left nephrectomy patient is POD #3 Hospitalist medicine were asked to see patient regarding hypercalcemia. Corrected calcium is 7.4, potassium is at 3 sodium is 135, I will order an albumin level, magnesium level, will replete magnesium if low, usually hypomagnesemia can cause hypocalcemia hypokalemia We will check PTH and TSH as well History of TB 7 years ago status post-" drainage of an abscess in the lung" as per the patient and he finished a full year dose of antituberculosis medication , no active signs of infection Alcohol abuse: Patient counseled will add CIWA protocol DVT prophylaxis per primary service Jazz Penn MD Jan 02, 2018 11:42
[2018-01-02 12:00] VITALS: BP 145/80; PULSE 92; RESP 18; TEMP 99; O2SAT 99
[2018-01-02] MEDS ORDERED: CALCIUM GLUCONATE INJ 2 GM in DEXTROSE 5% IN WATER 100ML INJ 100 ML IV ONE ×2 (12:00)
--- NOTE | 2018-01-02 15:03 | HHI.PR ---
Subjective Patient symptoms today Postoperative day #3 Making steady slow progress with ambulation Had a bowel movement Passing flatus Tolerating clear liquid diet well Voiding well Objective Vital Signs Vital Signs Date Time Temp Pulse Resp B/P (MAP) Pulse Ox O2 Delivery O2 Flow Rate FiO2 01/02/18 12:00 99.0 92 18 145/80 (101) 99 01/02/18 08:00 99.0 97 17 132/76 (94) 99 01/02/18 05:25 19 01/02/18 04:00 98.6 109 17 159/84 (109) 93 01/02/18 00:00 98.5 106 17 137/86 (103) 97 01/01/18 20:49 18 01/01/18 20:00 97.9 104 17 172/95 (120) 99 01/01/18 16:00 97.7 120 18 130/81 (97) 96 Intake & Output 01/02/18 01/02/18 06:59 18:59 Intake Total 1240 ml Output Total 300 ml Balance 940 ml Intake Oral 240 ml IV Total 1000 ml Output Urine Total 300 ml # Voids 3 # Bowel Movements 0 Result Diagram: 12/31/17 0611 01/02/18 0628 Other Results Pathology consistent with renal cell carcinoma with negative surgical margins. Objective Remarks Abdomen soft, moderately distended Wound sites clean and dry Extremities well-perfused, nontender Medications and IVs Current Medications Medications (Trade) Dose Ordered Sig/Dara Route Start Time Stop Time Status Last Admin (NS Flush) 2 ml UNSCH PRN IV FLUSH 12/30/17 15:15 (NS Flush) 2 ml BID IV FLUSH 12/30/17 21:00 (Zofran Odt) 4 mg Q6H PRN PO 12/30/17 15:30 (Narcan Inj) 0.4 mg UNSCH PRN IV PUSH 12/30/17 15:15 (Benadryl Inj) 25 mg Q6H PRN IV PUSH 12/30/17 15:15 (Benadryl) 25 mg Q6H PRN PO 12/30/17 15:15 12/31/17 16:30 (Dilaudid CAN CLOSING MACHINE OPERATOR Inj) 6 mg UNSCH IV 12/30/17 15:15 01/01/18 08:28 Dextrose/Sodium Chloride 1,000 ml @ 125 mls/hr Q8H IV 12/30/17 16:30 01/02/18 14:05 CAN CLOSING MACHINE OPERATOR Dosage Infused (Pha) 1 Q8HR IV 12/31/17 06:00 01/02/18 05:25 (Norvasc) 10 mg DAILY PO 12/31/17 09:00 01/02/18 09:09 (Mag-Ox) 400 mg Q12HR PO 12/31/17 09:00 01/02/18 09:09 Assessment and Plan Assessment and Plan Urologic impression: 1. Status post robot-assisted laparoscopic left radical nephrectomy with expected postop course 2. Hemodynamically stable 3. Hypocalcemia of indeterminate etiology Plan: 1. Medical consult for hypercalcemia 2. Advance to regular diet 3. Discontinue CAN CLOSING MACHINE OPERATOR 4. Encourage ambulation Wilman Sinha MD Jan 02, 2018 15:03
[2018-01-02] MEDS ORDERED: oxyCODONE/ACETAMINOPHEN 5 MG/325 MG TAB PO PRN (15:15)
[2018-01-02 16:00] VITALS: BP 152/77; PULSE 99; RESP 17; TEMP 100.4; O2SAT 97
[2018-01-02] MEDS: oxyCODONE/ACETAMINOPHEN 5 MG/325 MG TAB PO PRN ×2 (16:05→21:57)
[2018-01-02] MEDS ORDERED: LORazepam 2 MG/ML VIAL IV PUSH PRN ×4 (16:45)
[2018-01-02] MEDS ORDERED: FLUMAZENIL 0.5 MG/5 ML VIAL IV PUSH PRN (16:45)
[2018-01-02] MEDS ORDERED: LORazepam 1 MG TAB PO PRN (16:45)
[2018-01-02] MEDS ORDERED: LORazepam 2 MG TAB PO PRN (16:45)
[2018-01-02 20:00] VITALS: BP 143/81; PULSE 106; RESP 18; TEMP 98.3; O2SAT 98
[2018-01-02 20:04] LABS: ALBUMIN 2.8 GM/DL (3.4-5.0)
[2018-01-02] MEDS: MAGNESIUM SULFATE 1 GM PREMIX 100 ML IV SCH ×2 (23:00→23:57)
[2018-01-03] VITALS: BP 124/72; PULSE 94; RESP 18; TEMP 98.2; O2SAT 98
[2018-01-03] MEDS: PCA - TOTAL MG DILAUDID DELIVERED PER SHIFT IV SCH ×2 (04:22→13:23)
[2018-01-03 08:00] VITALS: BP 145/78; PULSE 95; RESP 18; TEMP 99; O2SAT 99
[2018-01-03] MEDS: MAGNESIUM OXIDE 400 MG TAB PO SCH (08:01)
[2018-01-03] MEDS: oxyCODONE/ACETAMINOPHEN 5 MG/325 MG TAB PO PRN (08:02)
[2018-01-03] MEDS: SODIUM CHLORIDE 0.9% FLUSH 10 ML FLUSH IV FLUSH SCH (08:08)
[2018-01-03] MEDS ORDERED: PERC5TAB12 PO (10:37)
[2018-01-03] MEDS ORDERED: COLA100C5 PO (10:37)
--- NOTE | 2018-01-03 10:43 | HHI.DS ---
Discharge Summary Admission Date Dec 30, 2017 at 05:41 Discharge Date: Jan 03, 2018 Admitting Diagnosis Renal cell carcinoma left kidney (1) Renal cell carcinoma of left kidney Diagnosis: Principal ICD Codes: C64.2 - Malignant neoplasm of left kidney, except renal pelvis Procedures Robot-assisted laparoscopic left radical nephrectomy Brief History 57-year-old gentleman recently discovered to have a large left-sided renal mass which was biopsied and proven to be renal cell carcinoma. Patient was admitted for a robot-assisted laparoscopic left radical nephrectomy. Please refer to the admission history and physical for additional history and pertinent physical findings. CBC/BMP: 12/31/17 0611 01/02/18 0628 Significant Findings Laboratory Tests Test 12/31/17 13:59 01/01/18 13:14 01/02/18 06:28 01/02/18 12:35 Creatinine 1.39 MG/DL (0.60-1.30) Calcium Level 7.6 MG/DL (8.5-10.1) 7.4 MG/DL (8.5-10.1) 7.4 MG/DL (8.5-10.1) Potassium Level 3.2 MEQ/L (3.5-5.1) 3.3 MEQ/L (3.5-5.1) 3.0 MEQ/L (3.5-5.1) Estimat Glomerular Filtration Rate 64 ML/MIN (>89) 80 ML/MIN (>89) Blood Urea Nitrogen 4 MG/DL (7-18) 4 MG/DL (7-18) Sodium Level 134 MEQ/L (136-145) 135 MEQ/L (136-145) Chloride Level 97 MEQ/L (98-107) Protein Corrected Calcium 7.2 MG/DL (8.5-10.1) 7.4 MG/DL (8.5-10.1) Random Glucose 115 MG/DL (74-106) Magnesium Level 1.0 MG/DL (1.5-2.5) Albumin 2.8 GM/DL (3.4-5.0) Parathyroid Hormone (Intact) 84.4 PG/ML (12.4-76.8) PE at Discharge Abdomen soft, nondistended, nontender Wound sites clean and dry Extremities well-perfused, nontender Hospital Course Patient was admitted on December 30 and underwent a for mentioned surgery without complications. Postoperatively the patient had a uneventful course other than having hypocalcemia and hypomagnesemia. Patient was evaluated by the medicine service and appropriate supplementation administered. By postop day #4, the patient was ambulating well, tolerating regular diet, passing flatus and having bowel movements. A decision was thus made to discharge the patient home. Pt Condition on Discharge: Good Discharge Disposition: Discharge Home Discharge Instructions DIET: Follow Instructions for: As Tolerated, No Restrictions Activities you can perform: Shower Only-No Bath Activities to avoid: Strenuous Activity, Bathing Wilman Sinha MD Jan 03, 2018 10:43
[2018-01-03 12:50] LABS: BICARBONATE 27.2 MEQ/L (21.0-32.0); CALCIUM 8.9 MG/DL (8.5-10.1); CREATININE 1.41 MG/DL (0.60-1.30); MAGNESIUM 1.9 MG/DL (1.5-2.5); PHOSPHORUS 2.8 MG/DL (2.5-4.9)
--- NOTE | 2018-01-03 15:51 | HHI.PR ---
Subjective Remarks Patient resting in bed denied any complain no fever or chills Objective Vitals Vital Signs Date Time Temp Pulse Resp B/P (MAP) Pulse Ox O2 Delivery O2 Flow Rate FiO2 01/03/18 08:00 99.0 95 18 145/78 (100) 99 01/03/18 00:00 98.2 94 18 124/72 (89) 98 01/02/18 23:00 16 01/02/18 20:00 98.3 106 18 143/81 (101) 98 01/02/18 16:00 100.4 99 17 152/77 (102) 97 I/O 01/02/18 01/02/18 01/02/18 01/03/18 01/03/18 01/03/18 07:00 15:00 23:00 07:00 15:00 23:00 Intake Total 1240 ml 120 ml 2150 ml 200 ml Output Total 750 ml Balance 1240 ml 120 ml 1400 ml 200 ml Intake Oral 240 ml 900 ml IV Total 1000 ml 120 ml 1250 ml 200 ml Output Urine Total 750 ml # Voids 3 # Bowel Movements 0 1 Result Diagram: 12/31/17 0611 01/03/18 1119 A/P Problem List: (1) Renal cell carcinoma of left kidney ICD Code: C64.2 - Malignant neoplasm of left kidney, except renal pelvis Assessment and Plan 57 years old female with left clear renal cell carcinoma in the left kidney admitted under urology service for left nephrectomy patient is POD #3 Hospitalist medicine were asked to see patient regarding hypercalcemia. 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
== END 2018-01-03 14:10 | disposition home or self-care (01) | DRG 658 ==
LOC: HSDI 05:41 → N07A 17:35
PROVIDERS: ADMIT Urology; ATTEND Urology
PROC: 8E0W4CZ Robotic Assisted Procedure of Trunk Region, Percutaneous Endoscopic Approach (ICD-10-PCS; 2017-12-30)
PROC: 0TT14ZZ Resection of Left Kidney, Percutaneous Endoscopic Approach (ICD-10-PCS; principal; 2017-12-30 08:17)
DX: C64.2 Malignant neoplasm of left kidney, except renal pelvis (principal); E83.42 Hypomagnesemia; I10 Essential (primary) hypertension; E83.51 Hypocalcemia; E87.6 Hypokalemia; M25.511 Pain in right shoulder; K21.9 Gastro-esophageal reflux disease without esophagitis; Z85.46 Personal history of malignant neoplasm of prostate; Z86.11 Personal history of tuberculosis
CPT/HCPCS: 80048; 82040; 83735; 83970; 84100; 84155; 84443; 85014; 85018; 86850; 86900; 86901; 86920; 88307; 88309; 94150; J0131; J0610; J0690; J1100; J1170; J1940; J2250; J2370; J2405; J3010; J3475; J3480; J7120

== ENCOUNTER 2018-01-06 09:16 | Emergency (ER) | payer OTHER ==
[~2018-01-06] VITALS: Ht 180.3 cm; Wt 70.0 kg
[~2018-01-06 09:16] MED LIST changes: +COLA100C5 PO; -LEVO750T3 PO; +PERC5TAB12 PO
[2018-01-06 09:30] VITALS: BP 142/79; PULSE 104; RESP 20; TEMP 98.2; O2SAT 99
[2018-01-06 10:07] LABS: AUTOMATED NEUTROPHIL # 3.9 TH/MM3 (1.8-7.7); BASOPHIL # 0.1 TH/MM3 (0-0.2); BASOPHIL % 0.9 % (0.0-2.0); EOSINOPHIL # 0.2 TH/MM3 (0-0.4); HEMATOCRIT 30.5 % (39.0-51.0); HEMOGLOBIN 10.1 GM/DL (13.0-17.0); LYMPH % 23.8 % (9.0-44.0); LYMPHOCYTE # 1.8 TH/MM3 (1.0-4.8); MEAN CELL VOLUME 89.1 FL (80.0-100.0); MEAN CORPUSCULAR HEMOGLOBIN 29.4 PG (27.0-34.0); MEAN PLATELET VOLUME 7.5 FL (7.0-11.0); MONO % 21.5 % (0.0-8.0); MONOCYTE # 1.6 TH/MM3 (0-0.9); NEUT % 51.8 % (16.0-70.0); PLATELET COUNT 268 TH/MM3 (150-450); RED BLOOD COUNT 3.43 MIL/MM3 (4.50-5.90); RED CELL DISTRIBUTION WIDTH 14.5 % (11.6-17.2); WHITE BLOOD COUNT 7.5 TH/MM3 (4.0-11.0)
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
[2018-01-06 10:28] LABS: ALBUMIN 3.3 GM/DL (3.4-5.0); ALT (GPT) 25 U/L (12-78); AST (GOT) 32 U/L (15-37); BICARBONATE 28.6 MEQ/L (21.0-32.0); BLOOD UREA NITROGEN 9 MG/DL (7-18); CHLORIDE 99 MEQ/L (98-107); CREATININE 1.57 MG/DL (0.60-1.30); GLOMERULAR FILTRATION RATE 55 ML/MIN (>89); GLUCOSE,RANDOM 88 MG/DL (74-106); SODIUM (NA) 137 MEQ/L (136-145)
[2018-01-06 10:31] LABS: ALKALINE PHOSPHATASE 110 U/L (45-117); TOTAL BILIRUBIN ADULT 0.4 MG/DL (0.2-1.0); TOTAL PROTEIN 8.4 GM/DL (6.4-8.2)
[2018-01-06 10:54] LABS: BACTERIA, URINE RARE /hpf; BILIRUBIN, URINE NEG (NEG); BLOOD, URINE NEG (NEG); GLUCOSE,URINE NEG (NEG); KETONE, URINE NEG (NEG); NITRITE,URINE NEG (NEG); URINE COLOR YELLOW (YELLW/STRAW); URINE LEUKOCYTE ESTERASE NEG (NEG)
[2018-01-06] MEDS ORDERED: IODIXANOL 320 MG/ML 10 ML VIAL (for Rad CT) IVCONTRAST ONE (10:54)
--- NOTE | 2018-01-06 11:35 | RADRPT ---
EXAM DATE: 01/06/2018 10:56 AM EDT AGE/SEX: 57 years / Male INDICATIONS: Left abdominal pain and swelling. Recent left nephrectomy. CLINICAL DATA: This is the patient's initial encounter. Patient reports that signs and symptoms have been present for 2 days and indicates a pain score of 10/10. MEDICAL/SURGICAL HISTORY: Diverticulitis. Carcinoma, prostatic. Hepatitis C. Hypertension. Nephrectomy, left. Cholecystectomy. ORAL CONTRAST: No oral contrast ingested. RADIATION DOSE: 4.91 CTDI (mGy) COMPARISON: [facility] [place]ELVIS W [place]AST, 10/09/2017. . TECHNIQUE: Multiple contiguous axial images were obtained through the abdomen and pelvis following b olus infusion of 50 ml Visipaque 320 (iodixanol) nonionic water-soluble contrast as a single exam d ose. No oral contrast ingested. Using automated exposure control and adjustment of the mA and/or kV according to patient size, radiation dose was kept as low as reasonably achievable to obtain optimal diagnostic quality images. DICOM format image data is available electronically for review and compar rosalee. FINDINGS: Lower Lungs: The visualized lower lungs are clear. Liver: Liver is somewhat heterogeneous and enlarged measuring 21 cm suggestive of hepatocellular dise ase. No dilated biliary ducts. The gallbladder is been surgically removed. No new or significant pro ges compared to the prior study. Spleen: Homogeneous density without enlargement. Pancreas: Unremarkable without mass or calcification. Kidneys: Status post recent left nephrectomy with nonspecific postsurgical changes noted in the left renal fossa. There appears to be some residual edema and a small amount of residual fluid in this lo cation. The right kidney is unremarkable and stable. Adrenal Glands: Unremarkable. Aorta: The aorta and proximal iliac vessels are grossly unremarkable without aneurysmal dilation. Bowel/Mesentery: The bowel loops are grossly unremarkable. The cecum and sigmoid colon have a normal configuration. There is some stool throughout the colon. No definite inflammatory changes are seen. Abdominal Wall: Nonspecific edema in the subcutaneous fat along the anterior abdominal wall. Retroperitoneum: No evidence of adenopathy in the retrocrural, para-aortic, or deep pelvic regions. Bladder: Mild thickening involving the wall of the urinary bladder. No significant changes. Reproductive Organs: No abnormal masses or calcifications seen. Inguinal: The inguinal region is unremarkable without evidence of adenopathy. Bony Structures: Stable primary degenerative changes. CONCLUSION: 1. Nonspecific post surgical changes are noted in the left renal fossa consistent with a recent left nephrectomy. 2. Enlarged heterogeneous liver suggestive of hepatocellular disease. Electronically signed by: Elijah Keyes MD 01/06/2018 11:33 AM EDT
== END 2018-01-06 12:34 | disposition left against medical advice (07) ==
LOC: NEPE 09:16
DX: R10.84 Generalized abdominal pain (principal); F12.90 Cannabis use, unspecified, uncomplicated; F32.9 Major depressive disorder, single episode, unspecified; I10 Essential (primary) hypertension; Z85.46 Personal history of malignant neoplasm of prostate; Z87.19 Personal history of other diseases of the digestive system; Z86.19 Personal history of other infectious and parasitic diseases; Z79.899 Other long term (current) drug therapy
CPT/HCPCS: 74177; 80053; 81001; 83690; 85025; 99284; Q9967

== ENCOUNTER 2018-01-10 03:20 | Emergency (ER) | payer OTHER ==
[~2018-01-10] VITALS: Ht 180.3 cm; Wt 72.0 kg
[2018-01-10 03:23] VITALS: BP 148/71; PULSE 103; RESP 16; TEMP 97.7; O2SAT 99
[2018-01-10 04:14] VITALS: BP 144/80; PULSE 92; RESP 18; O2SAT 87
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
[2018-01-10 05:26] LABS: AUTOMATED NEUTROPHIL # 2.8 TH/MM3 (1.8-7.7); BASOPHIL # 0.1 TH/MM3 (0-0.2); BASOPHIL % 1.6 % (0.0-2.0); EOSINOPHIL # 0.4 TH/MM3 (0-0.4); EOSINOPHIL % 6.5 % (0.0-4.0); HEMATOCRIT 31.1 % (39.0-51.0); HEMOGLOBIN 10.4 GM/DL (13.0-17.0); LYMPH % 29.2 % (9.0-44.0); LYMPHOCYTE # 1.6 TH/MM3 (1.0-4.8); MEAN CELL VOLUME 89.9 FL (80.0-100.0); MEAN CORPUSCULAR HEMOGLOBIN 29.9 PG (27.0-34.0); MEAN CORPUSCULAR HGB CONC 33.3 % (32.0-36.0); MEAN PLATELET VOLUME 7.2 FL (7.0-11.0); MONO % 12.2 % (0.0-8.0); MONOCYTE # 0.7 TH/MM3 (0-0.9); NEUT % 50.5 % (16.0-70.0); PLATELET COUNT 248 TH/MM3 (150-450); RED BLOOD COUNT 3.46 MIL/MM3 (4.50-5.90); RED CELL DISTRIBUTION WIDTH 14.6 % (11.6-17.2); WHITE BLOOD COUNT 5.5 TH/MM3 (4.0-11.0)
[2018-01-10] MEDS ORDERED: oxyCODONE/ACETAMINOPHEN 10 MG/325 MG TAB PO ONE (05:30)
[2018-01-10 05:41] LABS: ALBUMIN 3.2 GM/DL (3.4-5.0); AST (GOT) 37 U/L (15-37); BLOOD UREA NITROGEN 15 MG/DL (7-18); CALCIUM 8.7 MG/DL (8.5-10.1); CHLORIDE 101 MEQ/L (98-107); CREATININE 1.75 MG/DL (0.60-1.30); GLOMERULAR FILTRATION RATE 49 ML/MIN (>89); GLUCOSE,RANDOM 96 MG/DL (74-106); SODIUM (NA) 140 MEQ/L (136-145)
[2018-01-10 05:42] LABS: ALT (GPT) 23 U/L (12-78)
[2018-01-10 05:45] LABS: ALKALINE PHOSPHATASE 115 U/L (45-117); TOTAL BILIRUBIN ADULT 0.3 MG/DL (0.2-1.0)
[2018-01-10] MEDS ORDERED: SODIUM CHLORID 0.9% 500 ML INJ 500 ML IV ONE (06:00)
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
[2018-01-10 07:28] VITALS: BP 143/74; PULSE 88; RESP 18; O2SAT 97
[2018-01-10] MEDS ORDERED: SODIUM CHLOR 0.9% 1000 ML INJ 1,000 ML IV ONE (07:30)
--- NOTE | 2018-01-10 09:23 | RADRPT ---
EXAM DATE: 01/10/2018 9:09 AM EDT AGE/SEX: 57 years / Male INDICATIONS: Hydronephrosis. CLINICAL DATA: This is the patient's initial encounter. Patient reports that signs and symptoms have been present for 1 day and indicates a pain score of 3/10. MEDICAL/SURGICAL HISTORY: . Hypertension. Prostate cancer. Hepatitis C. Diverticulitis. . L eft nephrectomy 12/30/2017. Cholecystectomy. Right arm. COMPARISON: No prior exams available for comparison. No external comparison. MEASUREMENTS: Right Kidney:__10.7 x 4.1 x 5.2 cm Left Kidney:__N/A Surgically absent. FINDINGS: Right Kidney: Normal echotexture and cortical thickness. No mass or hydronephrosis. Left Kidney: Surgically absent. Bladder: Within normal limits given the degree of distension. Other: None. CONCLUSION: 1. Right kidney unremarkable. 2. Left nephrectomy Electronically signed by: Colton Barton MD 01/10/2018 9:21 AM EDT
[2018-01-10] MEDS ORDERED: PERC5TAB12 PO (12:05)
== END 2018-01-10 12:09 | disposition home or self-care (01) ==
LOC: NEPC 03:20
DX: C64.2 Malignant neoplasm of left kidney, except renal pelvis (principal); G89.18 Other acute postprocedural pain; F12.10 Cannabis abuse, uncomplicated; I10 Essential (primary) hypertension; Z90.5 Acquired absence of kidney
CPT/HCPCS: 76775; 80053; 83605; 83690; 85025; 87040; 96360; 96361; 99284; J7030; J7040

== ENCOUNTER 2018-05-08 17:07 | Observation (INO) ==
[2018-05-08] MEDS ORDERED: Sod Chloride 0.9% Inj 1,000 ML IV.SIG ONE ×2 (19:27→20:41)
--- NOTE | 2018-05-08 19:57 | ED ---
HPI General Chief Complaint: Dizziness Stated Complaint: dizzy Time Seen by Provider: 05/08/18 19:21 Source: patient and family Mode of arrival: ambulatory Limitations: no limitations History of Present Illness HPI Narrative: Primary CARE physicians Dr. Castorena Patient has been feeling episodes of lightheadedness and dizziness worse with standing and activity. Patient denies any active nausea vomiting or diarrhea now but unable to eat well because of MD complaint: Reports dizziness and lightheadedness Onset (ago): day(s) (3) Timing: gradual onset Description: Reports lightheadedness Related Data Home Medications Medication Instructions Recorded Confirmed amlodipine 10 mg PO DAILY 05/08/18 05/08/18 Allergies Allergy/AdvReac Type Severity Reaction Status Date / Time No Known Allergies Allergy Verified 05/08/18 17:18 Review of Systems ROS: all other systems reviewed are negative FOR[facility]LY [facility] Medical History Medical History GERD (gastroesophageal reflux disease) (Acute) Hypertension (Acute) Prostate CA (Acute) Tuberculosis (Acute) Surgical History Surgical History H/O kidney removal (Acute) Social History Social History Substance History: Active Abuse Smoking Status: Never smoker How Often Do You Have a Drink Containing Alcohol: 4 or more times a week Recent Travel in [facility] within the Last 8 Weeks: No Recent Out of Country Travel within the Last 8 Weeks: No Substance Abuse Detail Marijuana: Substance Use Status: Active Route Used Substance Abuse: Inhalation Immunization History Tetanus Immunization: >5 Years Exam Narrative Exam Narrative: GENERAL: -Indian male SKIN: Focused skin assessment warm/dry. HEAD: Atraumatic. Normocephalic. EYES: Pupils equal and round. No scleral icterus. No injection or drainage. ENT: No nasal bleeding or discharge. Mucous membranes dry . NECK: Trachea midline. No JVD. CARDIOVASCULAR: Patient became tachycardic on change of positions. Patient however remained with a regular rhythm . No murmur appreciated. RESPIRATORY: No accessory muscle use. Clear to auscultation. Breath sounds equal bilaterally. GASTROINTESTINAL: Abdomen soft, non-tender, nondistended. Hepatic and splenic margins not palpable. MUSCULOSKELETAL: No obvious deformities. No clubbing. No cyanosis. No edema. NEUROLOGICAL: Awake and alert. No obvious cranial nerve deficits. Motor grossly within normal limits. Normal speech. PSYCHIATRIC: Appropriate mood and affect; insight and judgment normal. Course Initial Documented Vital Signs Temperature 98.4 F 05/08/18 17:10 Pulse Rate 93 H 05/08/18 17:10 Respiratory Rate 20 05/08/18 17:10 Blood Pressure 113/62 05/08/18 17:10 Pulse Oximetry 100 05/08/18 17:10 Last Documented Vital Signs Temperature 98.4 F 05/08/18 17:10 Pulse Rate 96 H 05/08/18 18:49 Respiratory Rate 20 05/08/18 18:49 Blood Pressure 126/79 05/08/18 18:49 Pulse Oximetry 100 05/08/18 18:49 Medical Decision Making MDM Narrative Medical decision making narrative: Orthostatic positive by pulse rate which went from 88 up to 126 between a lying and standing the patient also became near syncopal and required to be assisted back down to the [facility] CBC showed anemia of 30, thrombocytopenia 112,000, no left shift no leukocytosis. hypokalemia 2.7, hyponatremia 129, creatinine 2.4, last december creatinine 1.75 ( acute on chronic kidney failure) cardiac enzymes neg tsh screen wnl cxr read by radiologist as negative examination ct head read by radiologist as no acute intracranial abnormality Medical Screen Exam Complete: Yes Emergency Medical Condition: Yes Lab Data Result diagrams: 05/08/18 19:00 05/08/18 19:00 Lab Results 05/08/18 05/08/18 Range/Units 19:00 19:00 WBC 6.7 (4.0-11.0) th/mm3 RBC 3.19 L (4.50-5.90) mil/mm3 Hgb 10.6 L (13.0-17.0) gm/dL Hct 30.5 L (39.0-51.0) % MCV 95.6 (80.0-100.0) fL MCH 33.2 (27.0-34.0) pg MCHC 34.7 (32.0-36.0) % RDW 16.1 (11.6-17.2) % Plt Count 112 L (150-450) th/mm3 MPV 9.1 (7.0-11.0) fL Neut % (Auto) 48.9 (16.0-70.0) % Lymph % (Auto) 36.1 (9.0-44.0) % Door % (Auto) 9.8 H (0.0-8.0) % Eos % (Auto) 4.3 H (0.0-4.0) % Baso % (Auto) 0.9 (0.0-2.0) % Neut # (Auto) 3.3 (1.8-7.7) th/mm3 Lymph # (Auto) 2.4 (1.0-4.8) th/mm3 Door # (Auto) 0.7 (0.0-0.9) th/mm3 Eos # (Auto) 0.3 (0.0-0.4) th/mm3 Baso # (Auto) 0.1 (0.0-0.2) th/mm3 WBC Differential . Differential Comment Auto diff final Sodium 129 L (136-145) meq/L Potassium 2.7 L* (3.5-5.1) meq/L Chloride 89 L (98-107) meq/L Carbon Dioxide 27.7 (21.0-32.0) meq/L Anion Gap 12 (5-15) meq/L BUN 9 (7-18) mg/dL Creatinine 2.40 H (0.60-1.30) mg/dL Estimated GFR 34 L (>89) mL/min Random Glucose 118 H (74-106) mg/dL Calcium 8.9 (8.5-10.1) mg/dL Troponin I Less than 0.02 L (0.02-0.05) ng/mL TSH 1.570 (0.358-3.740) uIU/mL Imaging Data Radiologist's impression: Chest X-Ray 05/08/18 19:27 CONCLUSION: Negative examination. Head CT 05/08/18 19:27 CONCLUSION: 1. No acute intracranial abnormality. . Discharge Plan Discharge Disposition Patient Disposition: 30 Still Patient Discharge Condition Condition: Stable Discharge Details Diagnosis: Acute hypokalemia, Acute hyponatremia, Acute dehydration Physicians Team ED Provider: Jeffery Alcantara Primary Care Provider: Vicente Castorena Rxs /Orders / Referrals /Forms Prescriptions: No Action amlodipine 10 mg Tablet 10 mg PO DAILY RF: 0 Discharge Interventions Interventions: Vital Signs Last Done: 05/08/18 18:49 Status ED Status: With Doctor
--- NOTE | 2018-05-08 19:57 | XR ---
EXAM DATE: 05/08/2018 7:27 PM EDT AGE/SEX: 58 years / Male INDICATIONS: Pneumonia. Abdomen pain and swelling. CLINICAL DATA: This is the patient's initial encounter. Patient reports that signs and symptoms have been present for 1 day and indicates a pain score of 0/10. MEDICAL/SURGICAL HISTORY: . Hypertension. Prostate cancer. Hepatitis C. Diverticulitis. . Lef t nephrectomy 12/30/2017. Cholecystectomy. Right arm. COMPARISON: [facility] [place] SINGLE AP, 10/09/2017. . FINDINGS: A single AP view of the chest demonstrates the lungs to be symmetrically aerated without evidence of mass, infiltrate or effusion. The cardiomediastinal contours are unremarkable. Osseous structures a re intact. CONCLUSION: Negative examination. Electronically signed by: Parveen Vogel MD 05/08/2018 7:56 PM EDT
--- NOTE | 2018-05-08 19:59 | CT ---
EXAM DATE: 05/08/2018 7:46 PM EDT AGE/SEX: 58 years / Male INDICATIONS: Dizziness one week. Weakness. CLINICAL DATA: This is the patient's initial encounter. Patient reports that signs and symptoms have been present for 1 week and indicates a pain score of 0/10. MEDICAL/SURGICAL HISTORY: Carcinoma, prostatic. Hypertension. . Renal surgery. RADIATION DOSE: 56.35 CTDI (mGy) COMPARISON: [facility] – [place], [place], CT BRAIN W/O CONTRAST, 12/12/2011. [facility] – [place], [place], CT BRAIN W/O CONTRAST, 11/15/2011. . TECHNIQUE: CT of the head without contrast. Using automated exposure control and adjustment of the mA and/or kV according to patient size, radiation dose was kept as low as reasonably achievable to ob tain optimal diagnostic quality images. DICOM format image data is available electronically for revi ew and comparison. FINDINGS: Cerebrum: The ventricles are normal for age. Cavum septa pellucidum and cavum vergae are noted. No e vidence of midline shift, mass lesion, hemorrhage or acute infarction. No extraaxial fluid collectio ns are seen. Posterior Fossa: The cerebellum and brainstem are intact. The 4th ventricle is midline. The cerebe llopontine angle is unremarkable. Extracranial: The visualized portion of the orbits is intact. There is a partially calcified scalp m ass in the left posterior parietal region which is stable compared to previous examination in 2012 an d likely benign. Skull: The calvaria is intact. No evidence of skull fracture. CONCLUSION: 1. No acute intracranial abnormality. . Electronically signed by: Parveen Vogel MD 05/08/2018 7:58 PM EDT
[2018-05-08 20:01] LABS: Baso # (Auto) 0.1 th/mm3 (0.0-0.2); Baso % (Auto) 0.9 % (0.0-2.0); Eos # (Auto) 0.3 th/mm3 (0.0-0.4); Eos % (Auto) 4.3 % (0.0-4.0); Hematocrit 30.5 % (39.0-51.0); Hemoglobin 10.6 gm/dL (13.0-17.0); Lymph # (Auto) 2.4 th/mm3 (1.0-4.8); Lymph % (Auto) 36.1 % (9.0-44.0); Mean Corpuscular HGB Conc 34.7 % (32.0-36.0); Mean Corpuscular Hemoglobin 33.2 pg (27.0-34.0); Mean Corpuscular Volume 95.6 fL (80.0-100.0); Mean Platelet Volume 9.1 fL (7.0-11.0); Mono # (Auto) 0.7 th/mm3 (0.0-0.9); Mono % (Auto) 9.8 % (0.0-8.0); Neut # (Auto) 3.3 th/mm3 (1.8-7.7); Neut % (Auto) 48.9 % (16.0-70.0); Platelet Count 112 th/mm3 (150-450); Red Blood Count 3.19 mil/mm3 (4.50-5.90); Red Cell Distribution Width 16.1 % (11.6-17.2); White Blood Count 6.7 th/mm3 (4.0-11.0)
[2018-05-08 20:33] LABS: Anion Gap 12 meq/L (5-15); Blood Urea Nitrogen 9 mg/dL (7-18); Calcium 8.9 mg/dL (8.5-10.1); Carbon Dioxide 27.7 meq/L (21.0-32.0); Chloride 89 meq/L (98-107); Glomerular Filtration Rate 34 mL/min (>89); Glucose,Random 118 mg/dL (74-106); Sodium 129 meq/L (136-145)
[2018-05-08 20:35] LABS: Potassium 2.7 meq/L (3.5-5.1)
[2018-05-08] MEDS ORDERED: Bisacodyl 10 MG Supp RECTAL PRN (21:05)
[2018-05-08] MEDS ORDERED: Acetaminophen 325 MG Tablet PO PRN (21:05)
--- NOTE | 2018-05-08 21:09 | P.HPIM ---
History of Present Illness Primary Care Physician: Vicente Castorena MD History of Present Illness: This is a 58-year-old male with PMH of HTN, Prostate CA and GERD who was brought to the ER after syncopal episode. Patient notes dizziness and poor appetite for approx 2-3 wks. Today w/ significant dizziness followed by syncopal event. No c/o chest pain, SOB, cough, fever or chills. On arrival, BP 113/62, HR 93, O2 sat 100% on RA, Afebrile. The essentially unremarkable except for platelets 112, previously 248 on 01/10/2018. Creatinine 2.40, previously 1.75 on 01/10/2018. K+ 2.7. Troponin negative. CXR with no acute findings. CT Head with no acute findings. - Diagnosis (1) Syncope (2) KIESHA (acute kidney injury) (3) Hypokalemia Review of Systems PAST FAMILY HISTORY: Reviewed. No h/o DM or CAD All other systems reviewed negative except as stated in [facility] - History History Provided By: Patient - Medical History Medical History: Medical History (Last Reviewed 05/08/18 @ 20:43 by Jeffery Alcantara) GERD (gastroesophageal reflux disease) Hypertension Prostate CA Tuberculosis - Surgical History Surgical History: Surgical History (Last Reviewed 05/08/18 @ 20:43 by Jeffery Alcantara) H/O kidney removal - Tobacco History Smoking Status: Never smoker - Alcohol History How Often Do You Have a Drink Containing Alcohol: 4 or more times a week - Substance Use History Substance History: Active Abuse - Substance Use Type Marijuana Status: Active Route Used: Inhalation - Travel History Recent Travel in the [place] Within the Last 8 Weeks: No Recent Travel Out of the Country Within the Last 8 Weeks: No - Immunization History Tetanus Immunization: >5 Years Medications and Allergies Active Medications: Active Medications Acetaminophen (Tylenol) 650 mg PO Q4H PRN PRN Reason: Temp > 100.4 Al Hydroxide/Mg Hydroxide (Milk Of Magnesia Liq) 30 ml PO Q12H PRN PRN Reason: Mild Constipation Bisacodyl (Dulcolax Supp) 10 mg RECTAL DAILY PRN PRN Reason: SEVERE CONSITIPATION Sodium Chloride (Ns Inj) 1,000 mls @ 100 mls/hr IV.CONT .Q10H LEIF Lactulose (Lactulose Liq) 30 ml PO DAILY PRN PRN Reason: SEVERE CONSITIPATION Sodium Chloride (Ns Flush) 2 ml IV.FLUSH PRN PRN PRN Reason: FLUSH AFTER USING IV ACCESS Allergies Allergy/AdvReac Type Severity Reaction Status Date / Time No Known Allergies Allergy Verified 05/08/18 17:18 Home Medications Medication Instructions Recorded Confirmed Type amlodipine 10 mg PO DAILY 05/08/18 05/08/18 History Exam Vital signs: Vital Signs 05/08/18 17:10 05/08/18 18:49 Temperature 98.4 F Pulse Rate 93 H 96 H Respiratory Rate 20 20 Blood Pressure 113/62 126/79 Pulse Oximetry 100 100 Intake & Output 05/08/18 05/08/18 05/09/18 06:59 18:59 06:59 Weight 66.678 kg Narrative: PE: GENERAL: Extremely pleasant middle-aged black male in no acute distress. Daughter at bedside SKIN: Focused skin assessment warm and dry. HEENT: PERRLA, EOMI. No scleral icterus or conjunctival pallor. No lid lag or facial droop. CARDIOVASCULAR: Regular rate and rhythm. No obvious murmurs to auscultation. No chest tenderness to palpation. RESPIRATORY: No obvious rhonchi or wheezing. Clear to auscultation. Breath sounds equal bilaterally. GASTROINTESTINAL: Abdomen soft, non-tender, nondistended. BS normal. MUSCULOSKELETAL: Extremities without clubbing, cyanosis, or edema. No obvious deformities. NEUROLOGICAL: Awake, alert and oriented x4. No focal neurologic deficits. Moving both upper and lower extremities spontaneously. PSYCHIATRIC: Appropriate mood and affect. Insight and judgment normal. Results - Labs CBC & Chem 7: 05/08/18 19:00 05/08/18 19:00 Labs: Short CBC 05/08/18 Range/Units 19:00 WBC 6.7 (4.0-11.0) th/mm3 Hgb 10.6 L (13.0-17.0) gm/dL Hct 30.5 L (39.0-51.0) % Plt Count 112 L (150-450) th/mm3 BMP 05/08/18 19:00 Sodium 129 L Potassium 2.7 L* Chloride 89 L Carbon Dioxide 27.7 BUN 9 Creatinine 2.40 H Calcium 8.9 Cardiac Enzymes 05/08/18 Range/Units 19:00 Troponin I Less than 0.02 L (0.02-0.05) ng/mL - Imaging Impressions Chest X-Ray 05/08/18 19:27 CONCLUSION: Negative examination. Head CT 05/08/18 19:27 CONCLUSION: 1. No acute intracranial abnormality. . Caprini VTE Risk Assessment Caprini VTE Risk Assessment: No/Low Risk (score <= 1) Caprini Risk Assessment Model: Point Value = 1 Point Value = 2 Point Value = 3 Point Value = 5 Age 41-60 Minor surgery BMI > 25 kg/m2 Swollen legs Varicose veins or History of unexplained or recurrent spontaneous Oral contraceptives or hormone replacement Sepsis (< 1 month) Serious lung disease, including pneumonia (< 1 month) Abnormal pulmonary function Acute myocardial infarction Congestive heart failure (< 1 month) History of inflammatory bowel disease Medical patient at bed rest Age 61-74 Arthroscopic surgery Major open surgery (> 45 min) Laparoscopic surgery (> 45 min) Malignancy Confined to bed (> 72 hours) Immobilizing plaster cast Central venous access Age >= 75 History of VTE Family history of VTE Factor V Leiden Prothrombin [id number] Lupus anticoagulant Anticardiolipin antibodies Elevated serum homocysteine Heparin-induced thrombocytopenia Other congenital or acquired thrombophilia Stroke (< 1 month) Elective arthroplasty Hip, pelvis, or leg fracture Acute spinal cord injury (< 1 month) Prophylaxis Regimen: Total Risk Factor Score Risk Level Prophylaxis Regimen 0-1 Low Early ambulation 2 Moderate Order ONE of the following: *Sequential Compression Device (SCD) *Heparin 5000 units SQ BID 3-4 Higher Order ONE of the following medications: *Heparin 5000 units SQ TID *Enoxaparin/Lovenox 40 mg SQ daily (WT < 150 kg, CrCl > 30 mL/min) *Enoxaparin/Lovenox 30 mg SQ daily (WT < 150 kg, CrCl > 10-29 mL/min) *Enoxaparin/Lovenox 30 mg SQ BID (WT < 150 kg, CrCl > 30 mL/min) AND/OR *Sequential Compression Device (SCD) 5 or more Highest Order ONE of the following medications: *Heparin 5000 units SQ TID (Preferred with Epidurals) *Enoxaparin/Lovenox 40 mg SQ daily (WT < 150 kg, CrCl > 30 mL/min) *Enoxaparin/Lovenox 30 mg SQ daily (WT < 150 kg, CrCl > 10-29 mL/min) *Enoxaparin/Lovenox 30 mg SQ BID (WT < 150 kg, CrCl > 30 mL/min) AND *Sequential Compression Device (SCD) Assessment and Plan - Assessment (1) Syncope Code(s): R55 - Syncope and collapse Status: Acute (2) KIESHA (acute kidney injury) Code(s): N17.9 - Acute kidney failure, unspecified Status: Acute (3) Hypokalemia Code(s): E87.6 - Hypokalemia Status: Acute - Plan A/P: 1. Syncope: acute dizziness followed by syncopal event, likely secondary to dehydration from poor PO intake, trop negative, admit for Observation, check serial cardiac enzymes for possible ischemia, check Echo to eval for valvular abnormality/cardiomyopathy, IVF for hydration, PT for eval/tx. 2. KIESHA: Creatinine 2.40, previously 1.57 on 01/06/18, IVF for hydration, check U/a to eval for underlying UTI, monitor I/O, repeat labs in am. 3. Hypokalemia: K+ 2.7, s/p replacement in ER, will recheck K+ and Mg tonight , additional replacement as needed, recheck again in am. Telemetry. 4. DVT Prophylaxis: SCD/Teds 5. Social work for d/c planning as needed 6. Case discussed w/ ER physician at length, labs/records/imaging reviewed by em
[2018-05-08] MEDS: Sod Chloride 0.9% Inj 1,000 ML IV.CONT SCH (23:36)
[2018-05-09 00:34] LABS: Magnesium 0.7 mg/dL (1.5-2.5)
[2018-05-09 00:37] LABS: Potassium 2.9 meq/L (3.5-5.1)
[2018-05-09] MEDS ORDERED: Sodium Chloride 0.9% 2 ML Flush PRN IV.FLUSH (01:09)
[2018-05-09] MEDS: Sod Chloride 0.9% Inj 1,000 ML IV.CONT SCH ×2 (06:51→20:23)
[2018-05-09 07:09] LABS: Alanine Aminotransferase 51 U/L (12-78); Albumin 3.5 g/dL (3.4-5.0); Alkaline Phosphatase 116 U/L (45-117); Anion Gap 8 meq/L (5-15); Aspartate Aminotransferase 126 U/L (15-37); Blood Urea Nitrogen 9 mg/dL (7-18); Calcium 8.3 mg/dL (8.5-10.1); Carbon Dioxide 28.7 meq/L (21.0-32.0); Chloride 100 meq/L (98-107); Glomerular Filtration Rate 48 mL/min (>89); Glucose,Random 98 mg/dL (74-106); Potassium 3.4 meq/L (3.5-5.1); Sodium 137 meq/L (136-145); Total Protein 8.1 g/dL (6.4-8.2)
[2018-05-09] MEDS: Senna/Docusate Sodium 8.6/50 MG Tablet PO SCH ×2 (10:51→20:22)
[2018-05-09] MEDS: Sodium Chloride 0.9% 2 ML Flush BID IV.FLUSH SCH ×2 (10:51→20:22)
[2018-05-09 10:58] LABS: Baso % (Auto) 0.4 % (0.0-2.0); Eos # (Auto) 0.2 th/mm3 (0.0-0.4); Eos % (Auto) 2.5 % (0.0-4.0); Hematocrit 31.5 % (39.0-51.0); Hemoglobin 10.9 gm/dL (13.0-17.0); Lymph # (Auto) 1.6 th/mm3 (1.0-4.8); Lymph % (Auto) 26.7 % (9.0-44.0); Mean Corpuscular HGB Conc 34.6 % (32.0-36.0); Mean Corpuscular Hemoglobin 33.2 pg (27.0-34.0); Mean Corpuscular Volume 95.7 fL (80.0-100.0); Mean Platelet Volume 9.1 fL (7.0-11.0); Mono # (Auto) 0.7 th/mm3 (0.0-0.9); Mono % (Auto) 11.6 % (0.0-8.0); Neut # (Auto) 3.5 th/mm3 (1.8-7.7); Neut % (Auto) 58.8 % (16.0-70.0); Platelet Count 86 th/mm3 (150-450); Red Blood Count 3.29 mil/mm3 (4.50-5.90)
[2018-05-09 11:29] LABS: Pappenheimer Bodies Present; Platelet Morphology Normal (Normal); Target Cells 1+
--- NOTE | 2018-05-09 11:48 | P.PNIM ---
Subjective Interval history: Patient says he feels better than he did yesterday. Still feels weak. He does not have any other complaints. Physical Exam Vital signs: Vital Signs 05/08/18 17:10 05/08/18 18:49 05/08/18 22:48 Temperature 98.4 F Pulse Rate 93 H 96 H 100 H Respiratory Rate 20 20 Blood Pressure 113/62 126/79 Pulse Oximetry 100 100 05/08/18 23:21 05/09/18 00:00 05/09/18 03:43 Temperature 98.3 F 98.7 F Pulse Rate 101 H 96 H 98 H Respiratory Rate 18 18 Blood Pressure 124/76 152/81 H Pulse Oximetry 97 97 05/09/18 04:31 05/09/18 08:00 Temperature 98.5 F Pulse Rate 96 H 84 Respiratory Rate 16 Blood Pressure 145/89 H Pulse Oximetry 98 Intake & Output 05/08/18 05/09/18 05/09/18 18:59 06:59 18:59 Intake Total 3000 / 3000 Output Total 1450 / 1450 Balance 1550 / 1550 Weight 66.678 kg Intake: IV 3000 / 3000 NS Inj 1,000 ML @ 100 mls/hr IV 1000 / 1000 .CONT .Q10H LEIF Rx#:[id number] NS Inj 1,000 ML @ Wide Open IV. 1999 / 1999 SIG BOLUS ONE Rx#:[id number] Oral 0 / 0 Output: Urine 1450 / 1450 Narrative: General patient in no acute distress HEENT extraocular movements are intact, clear oropharyngeal mucosa, no JVD Cardiovascular S1-S2 audible Respiratory clear to auscultation bilaterally Abdomen soft, nontender, nondistended, normal bowel sounds Extremities no edema 2+ distal pulses in bilateral upper and lower extremities Neuro no neurological deficits Results - Labs CBC & Chem 7: 05/09/18 09:50 05/09/18 05:55 Laboratory Results - last 24 hr 05/08/18 05/08/18 05/09/18 19:00 19:00 00:00 WBC 6.7 RBC 3.19 L Hgb 10.6 L Hct 30.5 L MCV 95.6 MCH 33.2 MCHC 34.7 RDW 16.1 Plt Count 112 L MPV 9.1 Prelim Diff (Auto) Neut % (Auto) 48.9 Lymph % (Auto) 36.1 [place] % (Auto) 9.8 H Eos % (Auto) 4.3 H Baso % (Auto) 0.9 Neut # (Auto) 3.3 Lymph # (Auto) 2.4 [place] # (Auto) 0.7 Eos # (Auto) 0.3 Baso # (Auto) 0.1 WBC Differential . Diff Scan Differential Comment Auto diff final Platelet Estimate Platelet Morphology Pappenheimer Bodies Target Cells Sodium 129 L Potassium 2.7 L* 2.9 L* Chloride 89 L Carbon Dioxide 27.7 Anion Gap 12 BUN 9 Creatinine 2.40 H Estimated GFR 34 L Random Glucose 118 H Calcium 8.9 Magnesium 0.7 L Total Bilirubin AST ALT Alkaline Phosphatase Troponin I Less than 0.02 L Less than 0.02 L Total Protein Albumin TSH 1.570 05/09/18 05/09/18 05:55 09:50 WBC 6.0 RBC 3.29 L Hgb 10.9 L Hct 31.5 L MCV 95.7 MCH 33.2 MCHC 34.6 RDW 16.0 Plt Count 86 L MPV 9.1 Prelim Diff (Auto) Slide review pending Neut % (Auto) 58.8 Lymph % (Auto) 26.7 [place] % (Auto) 11.6 H Eos % (Auto) 2.5 Baso % (Auto) 0.4 Neut # (Auto) 3.5 Lymph # (Auto) 1.6 [place] # (Auto) 0.7 Eos # (Auto) 0.2 Baso # (Auto) 0.0 WBC Differential . Diff Scan Auto diff confirmed Differential Comment . Platelet Estimate Low L Platelet Morphology Normal Pappenheimer Bodies Present H Target Cells 1+ H Sodium 137 Potassium 3.4 L Chloride 100 D Carbon Dioxide 28.7 Anion Gap 8 BUN 9 Creatinine 1.78 H Estimated GFR 48 L Random Glucose 98 Calcium 8.3 L Magnesium Total Bilirubin 1.8 H AST 126 H ALT 51 Alkaline Phosphatase 116 Troponin I Less than 0.02 L Total Protein 8.1 Albumin 3.5 TSH - Imaging Impressions Chest X-Ray 05/08/18 19:27 CONCLUSION: Negative examination. Head CT 05/08/18 19:27 CONCLUSION: 1. No acute intracranial abnormality. . Assessment and Plan - Assessment (1) Syncope Code(s): R55 - Syncope and collapse Status: Acute (2) KIESHA (acute kidney injury) Code(s): N17.9 - Acute kidney failure, unspecified Status: Acute (3) Hypokalemia Code(s): E87.6 - Hypokalemia Status: Acute - Plan This patient is a 58-year-old male with hypertension, prostate cancer, gastroesophageal reflux disease, and history of left-sided nephrectomy. The patient presented to our emergency room with complaints of dizziness, fatigue and poor appetite over the past couple of weeks. He admitted to drinking several beers daily over the past week. In the emergency department the patient was found to have positive orthostats and was in acute kidney injury. 1. Syncope likely secondary to dehydration 2. Acute kidney injury likely prerenal secondary to dehydration The patient presented with the findings mentioned above. CT scan of the head was done which was negative. Initial serum creatinine was elevated at 2.4, as per documentation the patient does have a chronic kidney disease. Orthostatic vitals were consistent with dehydration. Continue IV fluids, serum creatinine has down trended to 1.78 today. We will follow-up in a.m. BMP. Avoid nephrotoxic agents. Patient was advised to avoid alcohol. 3. Severe electrolyte abnormalities Patient was hypokalemic with a potassium of 2.7 and a magnesium level of 0.7. Potassium was replaced yesterday. Magnesium was ordered and I will follow the magnesium level today. 4. Hypertension Patient will be started on amlodipine today. Patient is ambulatory, no pharmacotherapy for DVT prophylaxis.
[2018-05-09] MEDS: Mag Sulf 1 gm/100 ml Premix 100 ML IV.SIG SCH ×4 (12:08→15:53)
[2018-05-09] MEDS: amLODIPine 5 MG Tablet PO SCH (12:08)
[2018-05-09 14:37] LABS: Bilirubin,Urine Negative (Negative); Clarity,Urine Clear (Clear); Color,Urine Straw (Yellw/Straw); Glucose,Urine (UA) Negative (Negative); Leukocyte Esterase,Urine Negative (Negative); Nitrite,Urine Negative (Negative); Specific Gravity,Urine 1.004 (1.002-1.035); Squamous Epithelial Cell,Urine <1 /hpf (0-5)
--- NOTE | 2018-05-09 15:22 | ECHRPT ---
Indication: SYNCOPE CONCLUSIONS The left ventricular systolic function is normal with an estimated ejection fraction in the range of 60-65%. Normal left ventricular size and wall thickness. No regional wall motion abnormalities are present. No significant valvular heart disease. The estimated pulmonary arterial pressure is 29.9 mmHg. No prior echo comparison. BP: / HR: Rhythm: Sinus MEASUREMENTS (Male / Female) Normal Values Technical Quality:Good 2D ECHO LV Diastolic Diameter PLAX 3.6 cm 4.2 - 5.9 / 3.9 - 5.3 cm LV Systolic Diameter PLAX 2.5 cm IVS Diastolic Thickness 0.9 cm 0.6 - 1.0 / 0.6 - 0.9 cm LVPW Diastolic Thickness 0.9 cm 0.6 - 1.0 / 0.6 - 0.9 cm LV Relative Wall Thickness 0.5 LVOT Diameter 2.1 cm DOPPLER AV Peak Velocity 99.1 cm/s AV Peak Gradient 3.9 mmHg LVOT Peak Velocity 80.0 cm/s LVOT Peak Gradient 2.6 mmHg AV Area Cont Eq pk 2.8 cm MV Area PHT 4.3 cm Mitral E Point Velocity 66.1 cm/s Mitral A Point Velocity 63.7 cm/s Mitral E to A Ratio 1.0 LV E' Lateral Velocity 10.6 cm/s Mitral E to LV E' Lateral Ratio 6.2 LV E' Septal Velocity 7.5 cm/s Mitral E to LV E' Septal Ratio 8.8 TR Peak Velocity 223.0 cm/s TR Peak Gradient 19.9 mmHg Right Atrial Pressure 10.0 mmHg Pulmonary Artery Systolic Pressu 29.9 mmHg Right Ventricular Systolic Press 29.9 mmHg PV Peak Velocity 81.4 cm/s PV Peak Gradient 2.7 mmHg FINDINGS LEFT VENTRICLE The left ventricular systolic function is normal with an estimated ejection fraction in the range of 60-65%. Normal left ventricular size. Wall thickness is normal. No regional wall motion abnormalities are present. RIGHT VENTRICLE Normal right ventricular size and systolic function. LEFT ATRIUM The left atrial size is normal. RIGHT ATRIUM The right atrial size is normal. ATRIAL SEPTUM Normal atrial septal thickness without atrial level shunting by limited color doppler interrogation. AORTA The aortic root and proximal ascending aorta are normal in size on limited imaging. MITRAL VALVE Structurally normal mitral valve. No mitral valve stenosis or regurgitation. AORTIC VALVE Trileaflet aortic valve. No aortic valve stenosis or regurgitation. TRICUSPID VALVE Structurally normal tricuspid valve. There is trace tricuspid valve regurgitation. The estimated pulmonary arterial pressure is 29.9 mmHg. PULMONARY VALVE Trivial pulmonary valve regurgitation. VESSELS The inferior vena cava is normal in size. PERICARDIUM No pericardial effusion. Samantha Mccarthy MD (Electronically Signed) Final Date:09 May 2018 15:20
--- NOTE | 2018-05-09 19:53 | ECG ---
Date Performed: 05/09/2018 Time Performed: 05:38:45 PTAGE: 58 years EKG: Sinus rhythm BORDERLINE LEFT AXIS DEVIATION BORDERLINE ECG PREVIOUS TRACING : 05/09/2018 00.07 Since the previous tracing, no significant change noted DOCTOR: Kiet Walker Interpretating Date/Time 05/09/2018 19:51:58
--- NOTE | 2018-05-09 20:05 | ECG ---
Date Performed: 05/09/2018 Time Performed: 00:07:07 PTAGE: 58 years EKG: Sinus rhythm NORMAL ECG Compared to PREVIOUS TRACING , rate slower DOCTOR: Kiet Walker Interpretating Date/Time 05/09/2018 20:04:11
[2018-05-10] MEDS: Sod Chloride 0.9% Inj 1,000 ML IV.CONT SCH ×2 (02:57→13:01)
[2018-05-10] MEDS: Senna/Docusate Sodium 8.6/50 MG Tablet PO SCH (08:47)
[2018-05-10] MEDS: amLODIPine 5 MG Tablet PO SCH (08:47)
[2018-05-10] MEDS: Sodium Chloride 0.9% 2 ML Flush BID IV.FLUSH SCH (08:47)
[2018-05-10 11:52] LABS: Calcium 7.9 mg/dL (8.5-10.1); Carbon Dioxide 25.8 meq/L (21.0-32.0); Magnesium 1.3 mg/dL (1.5-2.5); Potassium 3.2 meq/L (3.5-5.1)
[2018-05-10 12:25] VITALS: PULSE 91; TEMP 98.3
--- NOTE | 2018-05-10 13:26 | P.DS ---
Date of admission: 05/08/18 21:09 Primary care physician: Vicente Castorena MD Brief History from admission: This patient is a 58-year-old male with hypertension, prostate cancer, gastroesophageal reflux disease, and history of left-sided nephrectomy. The patient presented to our emergency room with complaints of dizziness, fatigue and poor appetite over the past couple of weeks. He admitted to drinking several beers daily over the past week. In the emergency department the patient was found to have positive orthostats and was in acute kidney injury. DS: Diagnosis - Discharge Diagnosis (1) Syncope Status: Acute (2) KIESHA (acute kidney injury) Status: Acute (3) Hypokalemia Status: Acute DS: Medications - Discharge Medications Prescriptions: folic acid 1 mg PO DAILY #30 tab multivitamin with folic acid [Thera] 1 tab PO DAILY #30 tab thiamine HCl (vitamin B1) [Vitamin B-1] 100 mg PO DAILY #30 tab DS: Summary Hospital Course: This patient is a 58-year-old male with hypertension, prostate cancer, gastroesophageal reflux disease, and history of left-sided nephrectomy. The patient presented to our emergency room with complaints of dizziness, fatigue and poor appetite over the past couple of weeks. He admitted to drinking several beers daily over the past week. In the emergency department the patient was found to have positive orthostats and was in acute kidney injury. 1. Syncope secondary to dehydration 2. Acute kidney injury likely prerenal secondary to dehydration 3. Alcohol abuse The patient presented with the findings mentioned above. CT scan of the head was done which was negative. Initial serum creatinine was elevated at 2.4, as per documentation the patient does have a chronic kidney disease. Orthostatic vitals were consistent with dehydration. He was monitored on telemetry, no significant events noted on telemetry. EKG was done which showed normal sinus rhythm. He was started on IV fluids which were continued throughout the hospitalization. Serum creatinine down trended and is currently at 1.33 today. The patient did not have any further dizziness episodes and feels good today. He will be discharged home today. I recommend that he follows up with his primary care physician Dr. Castorena within 1 week in [place]. He should have an outpatient BMP done to evaluate his kidney function. He was advised to avoid alcohol. The patient is status post nephrectomy and he was advised to take caution as he only has one kidney and he came in with acute kidney injury. The patient understood the recommendations and has agreed to stop drinking. He will be discharged on multivitamin with folate, and thiamine. 3. Severe electrolyte abnormalities The patient had severe electro abnormalities while in-house. He had a low serum magnesium level less than 1 and a potassium level of 2.7. Electrolytes were replaced. He will be discharged home today. 4. Hypertension The patient can continue his home dose of amlodipine. - Time Spent with Patient Total time spent providing and/or coordinating discharge services: Greater than 30 minutes - Quality: VTE Deep Vein Thrombosis/Pulmonary Embolism Present on Admission: No Exam Vital signs: Vital Signs 05/09/18 16:00 05/09/18 19:54 05/09/18 20:00 Temperature 98.6 F 98.7 F Pulse Rate 91 H 89 92 H Respiratory Rate 18 18 Blood Pressure 137/78 140/77 Pulse Oximetry 96 96 05/09/18 23:44 05/10/18 00:00 05/10/18 03:36 Temperature 98.7 F 98.7 F Pulse Rate 97 H 91 H 88 Respiratory Rate 18 16 Blood Pressure 128/76 120/70 Pulse Oximetry 96 98 05/10/18 04:22 05/10/18 08:00 05/10/18 12:00 Temperature 98.5 F 98.3 F Pulse Rate 92 H 90 91 H Respiratory Rate 18 16 Blood Pressure 142/74 H 130/74 Pulse Oximetry 96 97 Intake & Output 05/09/18 05/10/18 05/10/18 18:59 06:59 18:59 Intake Total 2360 / 2360 1000 / 1000 1000 / 1000 Output Total 1025 / 1025 Balance 2360 / 2360 -25 / -25 1000 / 1000 Intake: IV 1400 / 1400 1000 / 1000 1000 / 1000 NS Inj 1,000 ML @ 100 mls/hr IV 1000 / 1000 1000 / 1000 1000 / 1000 .CONT .Q10H LEIF Rx#:[id number] Magnesium Sulfate 1 gm/D5W 100 400 / 400 ml Premix 100 ML @ 108 mls/hr IV.SIG Q1H LEIF Rx#:[id number] Oral 960 / 960 Output: Urine 1025 / 1025 Other: # Voids 3 Date of Last Bowel Movement 05/09/18 05/10/18 Narrative: General patient in no acute distress HEENT extraocular movements are intact, clear oropharyngeal mucosa, no JVD Cardiovascular S1-S2 audible, RRR, no murmurs rubs or gallops Respiratory clear to auscultation bilaterally Abdomen soft, nontender, nondistended, normal bowel sounds Extremities no edema 2+ distal pulses in bilateral upper and lower extremities Neuro cranial nerves II through XII intact Results Procedures completed during hospitalization: none Labs on day of discharge: Labs from last 24 hours 05/10/18 05/09/18 10:45 06:00 Sodium 133 L Potassium 3.2 L Chloride 97 L Carbon Dioxide 25.8 Anion Gap 10 BUN 7 Creatinine 1.33 H Estimated GFR 67 L Random Glucose 130 H Calcium 7.9 L Magnesium 1.3 L D Urine Color Straw Urine Clarity Clear Urine pH 7.0 Ur Specific [place] 1.004 Urine Protein Negative Urine Glucose (UA) Negative Urine Ketones Negative Urine Occult Blood Negative Urine Nitrate Negative Urine Bilirubin Negative Urine Urobilinogen Less than 2 Ur Leukocyte Esterase Negative Urine WBC Less than 1 Ur Squamous Epith Cells <1 Micro UA Comment Culture not ind Ur Microscopic Review Not Reportable Urine Culture Comments Culture not ind - Impressions ITS Impressions Chest X-Ray 05/08/18 19:27 CONCLUSION: Negative examination. Head CT 05/08/18 19:27 CONCLUSION: 1. No acute intracranial abnormality. . Discharge Plan - Discharge Disposition Patient Disposition: 01 Discharge Home - Discharge Condition Condition: Stable - Discharge Order Discharge Orders: Discharge Order (Routine); Ordered 05/10/18 Ordered By: Arielle Meyer - Physicians Team Primary Care Provider: Vicente Castorena Attending Provider: Arielle Meyer
[2018-05-10] MEDS ORDERED: Magnesium Sulfate Inj 4 GM in Sodium Chlor 0.9% Inj 92 ML IV.SIG ONE (14:00)
[2018-05-10 16:16] VITALS: BP 149/86; RESP 18; O2SAT 98
[2018-05-11] MEDS ORDERED: Folic Acid 1 MG Tablet PO SCH (09:00)
== END 2018-05-10 17:44 | disposition home or self-care (01) ==
LOC: NEPD 17:07 → NEDA 17:07 → NEPGCP 22:58
PROVIDERS: ADMIT Hospitalist; ATTEND Hospitalist

== ENCOUNTER 2018-06-21 17:16 | Observation (INO) ==
[2018-06-21] MEDS ORDERED: Sod Chloride 0.9% Inj 1,000 ML IV.SIG ONE (18:32)
--- NOTE | 2018-06-21 18:50 | XR ---
EXAM DATE: 06/21/2018 6:46 PM EST AGE/SEX: 58 years / Male INDICATIONS: Chest pain CLINICAL DATA: This is the patient's initial encounter. Patient reports that signs and symptoms have been present for 2 days and indicates a pain score of 4/10. MEDICAL/SURGICAL HISTORY: . Hypertension. Prostate cancer. Hepatitis C. Diverticulitis. . . L eft nephrectomy 12/30/2017. Cholecystectomy. [place] [facility] [place]. . FINDINGS: There is nodular pleural thickening involving the left upper lung field laterally which is stable. Th e heart is stable. The pulmonary vascular pattern is normal. The lungs are clear. CONCLUSION: 1. Nodular pleural thickening involving the left upper lung field laterally which is stable. 2. No focal infiltrate or pulmonary vascular congestion. Electronically signed by: Parveen Vogel MD 06/21/2018 6:49 PM EST
[2018-06-21 18:58] LABS: Baso # (Auto) 0.1 th/mm3 (0.0-0.2); Baso % (Auto) 1.1 % (0.0-2.0); Eos # (Auto) 0.3 th/mm3 (0.0-0.4); Eos % (Auto) 6.5 % (0.0-4.0); Hematocrit 26.1 % (39.0-51.0); Lymph # (Auto) 1.9 th/mm3 (1.0-4.8); Lymph % (Auto) 36.7 % (9.0-44.0); Mean Corpuscular HGB Conc 34.5 % (32.0-36.0); Mean Corpuscular Hemoglobin 33.5 pg (27.0-34.0); Mean Corpuscular Volume 97.1 fL (80.0-100.0); Mean Platelet Volume 8.4 fL (7.0-11.0); Mono # (Auto) 0.7 th/mm3 (0.0-0.9); Mono % (Auto) 13.7 % (0.0-8.0); Neut # (Auto) 2.2 th/mm3 (1.8-7.7); Platelet Count 93 th/mm3 (150-450); Red Blood Count 2.69 mil/mm3 (4.50-5.90); Red Cell Distribution Width 15.7 % (11.6-17.2); White Blood Count 5.3 th/mm3 (4.0-11.0)
--- NOTE | 2018-06-21 19:08 | US ---
EXAM DATE: 06/21/2018 7:04 PM EST AGE/SEX: 58 years / Male INDICATIONS: Left leg swelling. CLINICAL DATA: This is the patient's initial encounter. Patient reports that signs and symptoms have been present for 1 day and indicates a pain score of 9/10. MEDICAL/SURGICAL HISTORY: Gastroesophageal reflux disease. Hypertension. Carcinoma, prostatic . Tuberculosis. . Nephrectomy. COMPARISON: No prior exams available for comparison. TECHNIQUE: Venous ultrasound of both lower extremities was performed from the inguinal ligament to t he proximal calf. Real-time, color Doppler and spectral tracing, compression and augmentation techni ques were used. FINDINGS: Normal compression of the deep venous system from the inguinal region to the proximal calf . No echogenic clot is seen. Normal response of the venous system to augmentation and respiration. CONCLUSION: 1. No sonographic evidence for left lower extremity DVT. Electronically signed by: Perry Nash MD 06/21/2018 7:07 PM EST
[2018-06-21 19:12] LABS: Activated Partial Thrombo Time 30.6 sec (23.4-31.7); INR 1.4 Ratio; Prothrombin Time 14.6 sec (9.8-11.6)
[2018-06-21 19:23] LABS: Albumin 3.5 g/dL (3.4-5.0); Anion Gap 10 meq/L (5-15); Aspartate Aminotransferase 103 U/L (15-37); Blood Urea Nitrogen 11 mg/dL (7-18); Calcium 8.5 mg/dL (8.5-10.1); Carbon Dioxide 22.2 meq/L (21.0-32.0); Chloride 99 meq/L (98-107); Glomerular Filtration Rate 47 mL/min (>89); Glucose,Random 92 mg/dL (74-106); Sodium 131 meq/L (136-145)
[2018-06-21 19:24] LABS: Alanine Aminotransferase 37 U/L (12-78)
[2018-06-21 19:26] LABS: Target Cells 1+
[2018-06-21 19:27] LABS: Alkaline Phosphatase 114 U/L (45-117); Pappenheimer Bodies Present; Total Protein 7.8 g/dL (6.4-8.2)
[2018-06-21 19:28] LABS: Howell-Jolly Bodies Present; Platelet Morphology Normal (Normal)
[2018-06-21 19:42] LABS: Bilirubin,Urine Negative (Negative); Clarity,Urine Clear (Clear); Color,Urine Yellow (Yellw/Straw); Glucose,Urine (UA) Negative (Negative); Leukocyte Esterase,Urine Negative (Negative); Nitrite,Urine Negative (Negative); Specific Gravity,Urine 1.003 (1.002-1.035)
--- NOTE | 2018-06-21 19:51 | ED ---
HPI General Chief complaint: Medical Clearance Stated complaint: feeling faint, dizzy, both legs swollen Time Seen by Provider: 06/21/18 18:09 Source: patient Mode of arrival: ambulatory Limitations: no limitations History of Present Illness HPI narrative: Mr Sierra is a 58 year old male who presents to the ED complaining of generalized fatigue, weakness, dizziness, and edema in his left lower extremity. The patient states that about 1 week ago he began having these symptoms and he feels like he is constantly sleeping. He states that he is occasionally nauseous and has vomited several times with no blood in the emesis. He states that he was hospitalized in 04/2018 for an acute kidney injury and 8 months ago one of his kidneys was surgically removed. The patient states that his leg has not swollen like this before and he denies trauma or injury to the leg. He does note one scabbed area where he had a cut approximately 6 weeks ago but this are does not cause pain. He denies syncope, chest pain, abdominal pain, or bruising. He had one episode of darker than normal stool 2 weeks ago but has had none since and denies diarrhea or natalee blood in the stool. The patient's PMH is significant for KIESHA, liver cirrhosis, HTN, and prostate cancer in remission. The patient drinks 2 pints of alcohol per day, smokes marijuana weekly, and denies tobacco use. Related Data Home Medications Medication Instructions Recorded Confirmed amlodipine 10 mg PO DAILY 05/08/18 06/21/18 Previous Rx's Medication Instructions Recorded folic acid 1 mg PO DAILY #30 tab 05/10/18 multivitamin with folic acid 1 tab PO DAILY #30 tab 05/10/18 [Thera] thiamine HCl (vitamin B1) [Vitamin 100 mg PO DAILY #30 tab 05/10/18 B-1] Allergies Allergy/AdvReac Type Severity Reaction Status Date / Time No Known Allergies Allergy Verified 06/21/18 17:49 Review of Systems ROS: all other systems reviewed are negative [facility] Medical History Medical History GERD (gastroesophageal reflux disease) (Acute) Hypertension (Acute) Prostate CA (Acute) Tuberculosis (Acute) Surgical History Surgical History H/O kidney removal (Acute) Social History Social History Substance History: Active Abuse Second Hand Smoke Exposure: Yes Smoking Status: Never smoker How Often Do You Have a Drink Containing Alcohol: 4 or more times a week Recent Travel in [facility] within the Last 8 Weeks: No Recent Out of Country Travel within the Last 8 Weeks: No Substance Abuse Detail Marijuana: Substance Use Status: Active Route Used Substance Abuse: Inhalation Reason for Use: Feels Good Immunization History Tetanus Immunization: Unsure Exam Narrative Exam Narrative: GENERAL: Patient is a well developed well nourished male who appears fatigued. SKIN: Warm and dry. Scaling and dryness noted to the bilateral lower extremities. HEAD: Atraumatic. Normocephalic. EYES: Pupils equal and round and reactive to light. No scleral icterus. No injection or drainage. ENT: No nasal bleeding or discharge. Mucous membranes pink and moist. NECK: Trachea midline. No JVD. CARDIOVASCULAR: Regular rate and rhythm. No murmurs rubs or gallops. RESPIRATORY: No accessory muscle use. Clear to auscultation. Breath sounds equal bilaterally. GASTROINTESTINAL: Abdomen soft, non-tender, nondistended. Hepatic and splenic margins not palpable. MUSCULOSKELETAL: Extremities without clubbing or cyanosis. Edema of the left lower leg from the knee to the foot. 2+ pulses in the upper and lower extremities bilaterally. left leg is warmer to touch than the left. Sensation intact to the bilateral lower extremities. FULL ROM of the upper and lower extremities bilaterally. NEUROLOGICAL: Awake and alert. No obvious cranial nerve deficits. Motor grossly within normal limits. Five out of 5 muscle strength in the arms and legs. Normal speech. PSYCHIATRIC: Appropriate mood and affect; insight and judgment normal. Course Initial Documented Vital Signs Temperature 99 F 06/21/18 17:19 Pulse Rate 108 H 06/21/18 17:19 Respiratory Rate 18 06/21/18 17:19 Blood Pressure 147/77 H 06/21/18 17:19 Pulse Oximetry 99 06/21/18 17:19 Last Documented Vital Signs Temperature 99.5 F 06/22/18 04:00 Pulse Rate 99 H 06/22/18 04:00 Respiratory Rate 16 06/22/18 04:00 Blood Pressure 123/63 06/22/18 04:00 Pulse Oximetry 96 06/22/18 04:00 Medical Decision Making MDM Narrative Medical decision making narrative: 58-year-old male who presents to the ED for evaluation of weakness and left leg swelling. Patient was properly examined and was found to have signs and symptoms of unclear etiology. Left leg does appear to be warmer than the right leg but no obvious sign of erythema noted. Patient is of -[place] and does appear to be darker on the left than the right. It is definitely warm. At this time labs and imaging were recommended. Patient agrees with this. Labs and imaging did show what appears to be elevated lactic acid and possible acute kidney injury. She only has one kidney. Case was discussed with my attending who recommends admission for further evaluation and treatment. He recommends starting patient antibiotics for possible cellulitis. Patient was started on this. Case discussed with Dr. Santiago who agrees admission to her service. Patient and family agree with admission. Medical Screen Exam Complete: Yes Emergency Medical Condition: Yes Differential Diagnosis Differential Diagnosis: DVT versus cellulitis versus weakness versus dehydration versus syncope Medical Records Medical records reviewed: Yes I reviewed the patient's medical records. Lab Data Lab results reviewed: Yes I reviewed the patient's lab results. Result diagrams: 06/22/18 03:09 06/22/18 03:09 Lab Results 06/21/18 06/21/18 06/21/18 Range/Units 18:36 18:36 18:36 WBC 5.3 (4.0-11.0) th/mm3 RBC 2.69 L (4.50-5.90) mil/mm3 Hgb 9.0 L (13.0-17.0) gm/dL Hct 26.1 L (39.0-51.0) % MCV 97.1 (80.0-100.0) fL MCH 33.5 (27.0-34.0) pg MCHC 34.5 (32.0-36.0) % RDW 15.7 (11.6-17.2) % Plt Count 93 L (150-450) th/mm3 MPV 8.4 (7.0-11.0) fL Prelim Diff (Auto) Slide review pending Neut % (Auto) 42.0 (16.0-70.0) % Lymph % (Auto) 36.7 (9.0-44.0) % Carson % (Auto) 13.7 H (0.0-8.0) % Eos % (Auto) 6.5 H (0.0-4.0) % Baso % (Auto) 1.1 (0.0-2.0) % Neut # (Auto) 2.2 (1.8-7.7) th/mm3 Lymph # (Auto) 1.9 (1.0-4.8) th/mm3 Carson # (Auto) 0.7 (0.0-0.9) th/mm3 Eos # (Auto) 0.3 (0.0-0.4) th/mm3 Baso # (Auto) 0.1 (0.0-0.2) th/mm3 WBC Differential . Diff Scan Auto diff confirmed Differential Comment . Platelet Estimate Low L (Normal) Platelet Morphology Normal (Normal) Pappenheimer Bodies Present H (None) Target Cells 1+ H (None) Goncalves-Sumpter Bodies Present H (None) PT 14.6 H (9.8-11.6) sec INR 1.4 Ratio APTT 30.6 (23.4-31.7) sec Sodium 131 L (136-145) meq/L Potassium 3.0 L (3.5-5.1) meq/L Chloride 99 (98-107) meq/L Carbon Dioxide 22.2 (21.0-32.0) meq/L Anion Gap 10 (5-15) meq/L BUN 11 (7-18) mg/dL Creatinine 1.81 H (0.60-1.30) mg/dL Estimated GFR 47 L (>89) mL/min Random Glucose 92 (74-106) mg/dL Lactic Acid (0.4-2.0) mmol/L Calcium 8.5 (8.5-10.1) mg/dL Magnesium 1.0 L (1.5-2.5) mg/dL Total Bilirubin 0.9 (0.2-1.0) mg/dL AST 103 H (15-37) U/L ALT 37 (12-78) U/L Alkaline Phosphatase 114 (45-117) U/L Troponin I Less than 0.02 L (0.02-0.05) ng/mL B-Natriuretic Peptide (0-100) pg/mL Total Protein 7.8 (6.4-8.2) g/dL Albumin 3.5 (3.4-5.0) g/dL Urine Color (Yellw/Straw) Urine Clarity (Clear) Urine pH (5.0-8.5) Ur Specific [place] (1.002-1.035) Urine Protein (Neg-Trace) mg/dL Urine Glucose (UA) (Negative) mg/dL Urine Ketones (Negative) mg/dL Urine Occult Blood (Negative) Urine Nitrate (Negative) Urine Bilirubin (Negative) Urine Urobilinogen (Less than 2) mg/dL Ur Leukocyte Esterase (Negative) Urine RBC (0-3) /hpf Urine WBC (0-5) /hpf Micro UA Comment Ur Microscopic Review Urine Culture Comments Serum Alcohol (0-5) mg/dL 06/21/18 06/21/18 06/21/18 Range/Units 18:36 18:36 18:36 WBC (4.0-11.0) th/mm3 RBC (4.50-5.90) mil/mm3 Hgb (13.0-17.0) gm/dL Hct (39.0-51.0) % MCV (80.0-100.0) fL MCH (27.0-34.0) pg MCHC (32.0-36.0) % RDW (11.6-17.2) % Plt Count (150-450) th/mm3 MPV (7.0-11.0) fL Prelim Diff (Auto) Neut % (Auto) (16.0-70.0) % Lymph % (Auto) (9.0-44.0) % Carson % (Auto) (0.0-8.0) % Eos % (Auto) (0.0-4.0) % Baso % (Auto) (0.0-2.0) % Neut # (Auto) (1.8-7.7) th/mm3 Lymph # (Auto) (1.0-4.8) th/mm3 Carson # (Auto) (0.0-0.9) th/mm3 Eos # (Auto) (0.0-0.4) th/mm3 Baso # (Auto) (0.0-0.2) th/mm3 WBC Differential Diff Scan Differential Comment Platelet Estimate (Normal) Platelet Morphology (Normal) Pappenheimer Bodies (None) Target Cells (None) Gocnalves-Sumpter Bodies (None) PT (9.8-11.6) sec INR Ratio APTT (23.4-31.7) sec Sodium (136-145) meq/L Potassium (3.5-5.1) meq/L Chloride (98-107) meq/L Carbon Dioxide (21.0-32.0) meq/L Anion Gap (5-15) meq/L BUN (7-18) mg/dL Creatinine (0.60-1.30) mg/dL Estimated GFR (>89) mL/min Random Glucose (74-106) mg/dL Lactic Acid 3.1 H (0.4-2.0) mmol/L Calcium (8.5-10.1) mg/dL Magnesium (1.5-2.5) mg/dL Total Bilirubin (0.2-1.0) mg/dL AST (15-37) U/L ALT (12-78) U/L Alkaline Phosphatase (45-117) U/L Troponin I (0.02-0.05) ng/mL B-Natriuretic Peptide 44 (0-100) pg/mL Total Protein (6.4-8.2) g/dL Albumin (3.4-5.0) g/dL Urine Color (Yellw/Straw) Urine Clarity (Clear) Urine pH (5.0-8.5) Ur Specific [place] (1.002-1.035) Urine Protein (Neg-Trace) mg/dL Urine Glucose (UA) (Negative) mg/dL Urine Ketones (Negative) mg/dL Urine Occult Blood (Negative) Urine Nitrate (Negative) Urine Bilirubin (Negative) Urine Urobilinogen (Less than 2) mg/dL Ur Leukocyte Esterase (Negative) Urine RBC (0-3) /hpf Urine WBC (0-5) /hpf Micro UA Comment Ur Microscopic Review Urine Culture Comments Serum Alcohol 273 H (0-5) mg/dL 06/21/18 06/21/18 06/22/18 Range/Units 19:29 21:32 03:09 WBC 4.1 (4.0-11.0) th/mm3 RBC 2.74 L (4.50-5.90) mil/mm3 Hgb 8.9 L (13.0-17.0) gm/dL Hct 26.9 L (39.0-51.0) % MCV 98.2 (80.0-100.0) fL MCH 32.4 (27.0-34.0) pg MCHC 33.0 (32.0-36.0) % RDW 15.6 (11.6-17.2) % Plt Count 87 L (150-450) th/mm3 MPV 8.0 (7.0-11.0) fL Prelim Diff (Auto) Slide review pending Neut % (Auto) 47.7 (16.0-70.0) % Lymph % (Auto) 29.3 (9.0-44.0) % Carson % (Auto) 13.9 H (0.0-8.0) % Eos % (Auto) 8.2 H (0.0-4.0) % Baso % (Auto) 0.9 (0.0-2.0) % Neut # (Auto) 2.0 (1.8-7.7) th/mm3 Lymph # (Auto) 1.2 (1.0-4.8) th/mm3 Carson # (Auto) 0.6 (0.0-0.9) th/mm3 Eos # (Auto) 0.3 (0.0-0.4) th/mm3 Baso # (Auto) 0.0 (0.0-0.2) th/mm3 WBC Differential Diff Scan Differential Comment . Platelet Estimate (Normal) Platelet Morphology (Normal) Pappenheimer Bodies (None) Target Cells (None) Goncalves-Sumpter Bodies (None) PT (9.8-11.6) sec INR Ratio APTT (23.4-31.7) sec Sodium (136-145) meq/L Potassium (3.5-5.1) meq/L Chloride (98-107) meq/L Carbon Dioxide (21.0-32.0) meq/L Anion Gap (5-15) meq/L BUN (7-18) mg/dL Creatinine (0.60-1.30) mg/dL Estimated GFR (>89) mL/min Random Glucose (74-106) mg/dL Lactic Acid 3.0 H (0.4-2.0) mmol/L Calcium (8.5-10.1) mg/dL Magnesium (1.5-2.5) mg/dL Total Bilirubin (0.2-1.0) mg/dL AST (15-37) U/L ALT (12-78) U/L Alkaline Phosphatase (45-117) U/L Troponin I (0.02-0.05) ng/mL B-Natriuretic Peptide (0-100) pg/mL Total Protein (6.4-8.2) g/dL Albumin (3.4-5.0) g/dL Urine Color Yellow (Yellw/Straw) Urine Clarity Clear (Clear) Urine pH 6.0 (5.0-8.5) Ur Specific [place] 1.003 (1.002-1.035) Urine Protein Negative (Neg-Trace) mg/dL Urine Glucose (UA) Negative (Negative) mg/dL Urine Ketones Negative (Negative) mg/dL Urine Occult Blood Negative (Negative) Urine Nitrate Negative (Negative) Urine Bilirubin Negative (Negative) Urine Urobilinogen Less than 2 (Less than 2) mg/dL Ur Leukocyte Esterase Negative (Negative) Urine RBC 1 (0-3) /hpf Urine WBC 1 (0-5) /hpf Micro UA Comment Culture not ind Ur Microscopic Review Not Reportable Urine Culture Comments Culture not ind Serum Alcohol (0-5) mg/dL 06/22/18 Range/Units 03:09 WBC (4.0-11.0) th/mm3 RBC (4.50-5.90) mil/mm3 Hgb (13.0-17.0) gm/dL Hct (39.0-51.0) % MCV (80.0-100.0) fL MCH (27.0-34.0) pg MCHC (32.0-36.0) % RDW (11.6-17.2) % Plt Count (150-450) th/mm3 MPV (7.0-11.0) fL Prelim Diff (Auto) Neut % (Auto) (16.0-70.0) % Lymph % (Auto) (9.0-44.0) % Carson % (Auto) (0.0-8.0) % Eos % (Auto) (0.0-4.0) % Baso % (Auto) (0.0-2.0) % Neut # (Auto) (1.8-7.7) th/mm3 Lymph # (Auto) (1.0-4.8) th/mm3 [place] # (Auto) (0.0-0.9) th/mm3 Eos # (Auto) (0.0-0.4) th/mm3 Baso # (Auto) (0.0-0.2) th/mm3 WBC Differential Diff Scan Differential Comment Platelet Estimate (Normal) Platelet Morphology (Normal) Pappenheimer Bodies (None) Target Cells (None) Goncalves-Sumpter Bodies (None) PT (9.8-11.6) sec INR Ratio APTT (23.4-31.7) sec Sodium 142 D (136-145) meq/L Potassium 3.3 L (3.5-5.1) meq/L Chloride 109 H D (98-107) meq/L Carbon Dioxide 20.8 L (21.0-32.0) meq/L Anion Gap 12 (5-15) meq/L BUN 10 (7-18) mg/dL Creatinine 1.45 H (0.60-1.30) mg/dL Estimated GFR 60 L (>89) mL/min Random Glucose 81 (74-106) mg/dL Lactic Acid (0.4-2.0) mmol/L Calcium 7.7 L D (8.5-10.1) mg/dL Magnesium (1.5-2.5) mg/dL Total Bilirubin 0.8 (0.2-1.0) mg/dL AST 93 H (15-37) U/L ALT 33 (12-78) U/L Alkaline Phosphatase 102 (45-117) U/L Troponin I (0.02-0.05) ng/mL B-Natriuretic Peptide (0-100) pg/mL Total Protein 7.1 D (6.4-8.2) g/dL Albumin 3.0 L (3.4-5.0) g/dL Urine Color (Yellw/Straw) Urine Clarity (Clear) Urine pH (5.0-8.5) Ur Specific [place] (1.002-1.035) Urine Protein (Neg-Trace) mg/dL Urine Glucose (UA) (Negative) mg/dL Urine Ketones (Negative) mg/dL Urine Occult Blood (Negative) Urine Nitrate (Negative) Urine Bilirubin (Negative) Urine Urobilinogen (Less than 2) mg/dL Ur Leukocyte Esterase (Negative) Urine RBC (0-3) /hpf Urine WBC (0-5) /hpf Micro UA Comment Ur Microscopic Review Urine Culture Comments Serum Alcohol (0-5) mg/dL Imaging Data Attestation: I personally reviewed and interpreted this imaging study as follows : Radiologist's impression: Chest X-Ray 06/21/18 18:32 CONCLUSION: 1. Nodular pleural thickening involving the left upper lung field laterally which is stable. 2. No focal infiltrate or pulmonary vascular congestion. Venous Doppler Study 06/21/18 18:32 CONCLUSION: 1. No sonographic evidence for left lower extremity DVT. Tibia/Fibula X-Ray 06/21/18 20:29 CONCLUSION: 1. Negative examination ECG Data Attestation: I personally reviewed and interpreted this ECG as follows: Interpretation: EKG shows sinus rhythm with no sign of acute ischemia and arrhythmia. read By me and attending. Discharge Plan Discharge Disposition Patient Disposition: 30 Still Patient Discharge Details Diagnosis: Cellulitis, KIESHA (acute kidney injury) Physicians Team ED Provider: Diana Johnson ED Midlevel Provider: Te Mandujano Primary Care Provider: Vicente Castorena Attending Provider: Daniela Blackmon Status ED Status: Left Department Discharge Information Discharge Date/Time: 06/21/18 23:06
--- NOTE | 2018-06-21 20:55 | XR ---
EXAM DATE: 06/21/2018 8:52 PM EST AGE/SEX: 58 years / Male INDICATIONS: Lower leg swelling. No trauma. CLINICAL DATA: This is the patient's subsequent encounter. Patient reports that signs and symptoms h ave been present for 3 days and indicates a pain score of 6/10. MEDICAL/SURGICAL HISTORY: None. None. COMPARISON: No prior exams available for comparison. FINDINGS: Bony structures are intact and in normal alignment. Osseous density is normal. Soft tissues are unre markable. No radiopaque foreign bodies seen. CONCLUSION: 1. Negative examination Electronically signed by: Perry Nash MD 06/21/2018 8:53 PM EST
[2018-06-21] MEDS ORDERED: Sodium Chlor 0.9% Inj 500 ML IV.SIG SCH (21:00)
[2018-06-21] MEDS ORDERED: Clindamycin 600 mg/NS Premix 600 MG/50 ML PIGGYBACK IV.SIG ONE (21:09)
[2018-06-21] MEDS ORDERED: Vancomycin Inj 1,000 MG in Sodium Chlor 0.9% Inj 250 ML IV.SIG ONE (21:13)
[2018-06-21] MEDS ORDERED: Piperacil/Tazo 3.375 GM Premix 50 ML IV.SIG ONE (21:13)
[2018-06-21] MEDS ORDERED: LORazepam 1 MG Tablet PO PRN (21:24)
[2018-06-21] MEDS ORDERED: Haloperidol Inj 5 MG/ML Ampul IV.PUSH PRN (21:24)
[2018-06-21] MEDS ORDERED: Bisacodyl 10 MG Supp RECTAL PRN (21:26)
[2018-06-21] MEDS ORDERED: Acetaminophen 325 MG Tablet PO PRN (21:26)
--- NOTE | 2018-06-21 21:28 | P.HPIM ---
History of Present Illness Primary Care Physician: Vicente Castorena MD History of Present Illness: This is a 58-year-old male with a PMH of HTN, Prostate CA and Alcohol Abuse who presents to ER with complaints of left lower extremity swelling and pain x1 wk. Denies injury/trauma. Notes progressive lower extremity swelling and pain, now constant, 8/10, non-radiating. No fever or chills. No h/o similar symptoms. On arrival, BP 147/77, HR 108A, Temp 99. Hemoglobin 9.0. Platelets 93, previously 86 on 05/09/2018. INR 1.4. K+ 3.0. Creatinine 1.81, previously 1.33 on 05/10/2018. Lactic Acid 3.1. Troponin negative. UA negative. Alcohol 273. CXR with pleural thickening which is stable, no acute findings. LE Doppler negative for DVT. Tib-fib X-ray negative. S/p Vanc/Zosyn /Clinda in ER. - Diagnosis (1) Cellulitis (2) Alcohol abuse (3) Thrombocytopenia (4) KIESHA (acute kidney injury) (5) Hypokalemia Review of Systems PAST FAMILY HISTORY: Reviewed. No h/o DM or CAD All other systems reviewed negative except as stated in HPI PMFSH - History History Provided By: Patient - Medical History Medical History: Medical History (Last Reviewed 05/08/18 @ 20:43 by Jeffery Alcantara) GERD (gastroesophageal reflux disease) Hypertension Prostate CA Tuberculosis - Surgical History Surgical History: Surgical History (Last Reviewed 05/08/18 @ 20:43 by Jeffery Alcantraa) H/O kidney removal - Tobacco History Second Hand Smoke Exposure: No Smoking Status: Never smoker - Alcohol History How Often Do You Have a Drink Containing Alcohol: 4 or more times a week - Substance Use History Substance History: Active Abuse - Substance Use Type Marijuana Status: Active Route Used: Inhalation Reason for Use: Feels Good - Travel History Recent Travel in the [place] Within the Last 8 Weeks: No Recent Travel Out of the Country Within the Last 8 Weeks: No - Immunization History Tetanus Immunization: Unsure Medications and Allergies Active Medications: Active Medications Acetaminophen (Tylenol) 650 mg PO Q4H PRN PRN Reason: Temp > 100.4 Al Hydroxide/Mg Hydroxide (Milk Of Magnesia Liq) 30 ml PO Q12H PRN PRN Reason: Mild Constipation Bisacodyl (Dulcolax Supp) 10 mg RECTAL DAILY PRN PRN Reason: SEVERE CONSITIPATION Folic Acid (Folic Acid) 1 mg PO DAILY [facility] Stop: 06/27/18 08:59 Haloperidol Lactate (Haldol Inj) 1 mg IV.PUSH Q15M PRN PRN Reason: for severe agitation Sodium Chloride (Ns Inj) 500 mls @ 1,000 mls/hr IV.SIG BOLUS LEIF Stop: 06/21/18 21:29 Last Admin: 06/21/18 20:55 Dose: 1,000 mls/hr Vancomycin HCl 1,000 mg/ (Sodium Chloride) 250 mls @ 250 mls/hr IV.SIG ONCE ONE Stop: 06/21/18 22:12 Piperacillin/Tazobactam/Dextrose (Zosyn 3.375 Gm Premix) 50 mls @ 100 mls/hr IV.SIG ONCE ONE Stop: 06/21/18 21:42 Clindamycin/Sodium Chloride (Cleocin 900 Mg/Ns Premix) 900 mg in 50 mls @ 100 mls/hr IV.SIG Q8H [facility] Sodium Chloride (Ns Inj) 1,000 mls @ 100 mls/hr IV.CONT .Q10H [facility] Lactulose (Lactulose Liq) 30 ml PO DAILY PRN PRN Reason: SEVERE CONSITIPATION Lorazepam (Ativan) 1 mg PO Q4H PRN PRN Reason: for CIWA 8-10 Lorazepam (Ativan) 2 mg PO Q2H PRN PRN Reason: for CIWA 11-14 Lorazepam (Ativan Inj) 2 mg IV.PUSH Q2H PRN PRN Reason: for CIWA 11-14 Lorazepam (Ativan Inj) 2 mg IV.PUSH Q1H PRN PRN Reason: for CIWA 15-20 Lorazepam (Ativan Inj) 2 mg IV.PUSH Q15M PRN PRN Reason: for CIWA > 20 Lorazepam (Ativan Inj) 1 mg IV.PUSH Q4H PRN PRN Reason: for CIWA 8-10 Multivitamins/Minerals (Theragran-M) 1 tab PO DAILY [facility] Stop: 06/27/18 08:59 Ondansetron HCl (Zofran Inj) 4 mg IV.PUSH Q6H PRN PRN Reason: NAUSEA OR VOMITING Senna/Docusate Sodium (Olena-Colace) 1 tab PO BID LEIF Sennosides (Senokot) 17.2 mg PO Q12H PRN PRN Reason: Moderate Constipation Sodium Chloride (Ns Flush) 2 ml IV.FLUSH BID LEIF Allergies Allergy/AdvReac Type Severity Reaction Status Date / Time No Known Allergies Allergy Verified 06/21/18 17:49 Home Medications Medication Instructions Recorded Confirmed Type amlodipine 10 mg PO DAILY 05/08/18 06/21/18 History Exam Vital signs: Vital Signs 06/21/18 17:19 06/21/18 17:47 06/21/18 19:39 Temperature 99 F 98.7 F Pulse Rate 108 H 113 H 103 H Respiratory Rate 18 18 16 Blood Pressure 147/77 H 128/73 117/67 Pulse Oximetry 99 96 99 Intake & Output 06/21/18 06/21/18 06/22/18 06:59 18:59 06:59 Intake Total 1000 / 1000 Output Total 350 / 350 Balance 650 / 650 Weight 68.492 kg Intake: IV 1000 / 1000 NS Inj 1,000 ML @ Wide Open IV. 1000 / 1000 SIG BOLUS ONE Rx#:[id number] Output: Urine 350 / 350 Narrative: PE: GENERAL: Pleasant middle-aged black male in no acute distress. Family at bedside. SKIN: Focused skin assessment warm and dry. HEENT: PERRLA, EOMI. No scleral icterus or conjunctival pallor. No lid lag or facial droop. CARDIOVASCULAR: Regular rate and rhythm. No obvious murmurs to auscultation. No chest tenderness to palpation. RESPIRATORY: No obvious rhonchi or wheezing. Clear to auscultation. Breath sounds equal bilaterally. GASTROINTESTINAL: Abdomen soft, non-tender, nondistended. BS normal. MUSCULOSKELETAL: Extremities without clubbing, cyanosis. No obvious deformities. Bilateral edema, left > right, +warmth to touch NEUROLOGICAL: Awake, alert and oriented x4. No focal neurologic deficits. Moving both upper and lower extremities spontaneously. PSYCHIATRIC: Appropriate mood and affect. Insight and judgment normal. Results - Labs CBC & Chem 7: 06/21/18 18:36 06/21/18 18:36 Labs: Short CBC 06/21/18 Range/Units 18:36 WBC 5.3 (4.0-11.0) th/mm3 Hgb 9.0 L (13.0-17.0) gm/dL Hct 26.1 L (39.0-51.0) % Plt Count 93 L (150-450) th/mm3 BMP 06/21/18 18:36 Sodium 131 L Potassium 3.0 L Chloride 99 Carbon Dioxide 22.2 BUN 11 Creatinine 1.81 H Calcium 8.5 Cardiac Enzymes 06/21/18 Range/Units 18:36 Troponin I Less than 0.02 L (0.02-0.05) ng/mL Liver Function 06/21/18 Range/Units 18:36 Total Bilirubin 0.9 (0.2-1.0) mg/dL AST 103 H (15-37) U/L ALT 37 (12-78) U/L Alkaline Phosphatase 114 (45-117) U/L Albumin 3.5 (3.4-5.0) g/dL Urine 06/21/18 Range/Units 19:29 Urine Color Yellow (Yellw/Straw) Urine Clarity Clear (Clear) Urine pH 6.0 (5.0-8.5) Ur Specific [place] 1.003 (1.002-1.035) Urine Protein Negative (Neg-Trace) mg/dL Urine Glucose (UA) Negative (Negative) mg/dL - Imaging Impressions Chest X-Ray 06/21/18 18:32 CONCLUSION: 1. Nodular pleural thickening involving the left upper lung field laterally which is stable. 2. No focal infiltrate or pulmonary vascular congestion. Venous Doppler Study 06/21/18 18:32 CONCLUSION: 1. No sonographic evidence for left lower extremity DVT. Tibia/Fibula X-Ray 06/21/18 20:29 CONCLUSION: 1. Negative examination Caprini VTE Risk Assessment Caprini VTE Risk Assessment: No/Low Risk (score <= 1) VTE Pharmacological Exception Reason: High risk for bleeding VTE Mechanical Exception: Severe LE edema Caprini Risk Assessment Model: Point Value = 1 Point Value = 2 Point Value = 3 Point Value = 5 Age 41-60 Minor surgery BMI > 25 kg/m2 Swollen legs Varicose veins or History of unexplained or recurrent spontaneous Oral contraceptives or hormone replacement Sepsis (< 1 month) Serious lung disease, including pneumonia (< 1 month) Abnormal pulmonary function Acute myocardial infarction Congestive heart failure (< 1 month) History of inflammatory bowel disease Medical patient at bed rest Age 61-74 Arthroscopic surgery Major open surgery (> 45 min) Laparoscopic surgery (> 45 min) Malignancy Confined to bed (> 72 hours) Immobilizing plaster cast Central venous access Age >= 75 History of VTE Family history of VTE Factor V Leiden Prothrombin [id number] Lupus anticoagulant Anticardiolipin antibodies Elevated serum homocysteine Heparin-induced thrombocytopenia Other congenital or acquired thrombophilia Stroke (< 1 month) Elective arthroplasty Hip, pelvis, or leg fracture Acute spinal cord injury (< 1 month) Prophylaxis Regimen: Total Risk Factor Score Risk Level Prophylaxis Regimen 0-1 Low Early ambulation 2 Moderate Order ONE of the following: *Sequential Compression Device (SCD) *Heparin 5000 units SQ BID 3-4 Higher Order ONE of the following medications: *Heparin 5000 units SQ TID *Enoxaparin/Lovenox 40 mg SQ daily (WT < 150 kg, CrCl > 30 mL/min) *Enoxaparin/Lovenox 30 mg SQ daily (WT < 150 kg, CrCl > 10-29 mL/min) *Enoxaparin/Lovenox 30 mg SQ BID (WT < 150 kg, CrCl > 30 mL/min) AND/OR *Sequential Compression Device (SCD) 5 or more Highest Order ONE of the following medications: *Heparin 5000 units SQ TID (Preferred with Epidurals) *Enoxaparin/Lovenox 40 mg SQ daily (WT < 150 kg, CrCl > 30 mL/min) *Enoxaparin/Lovenox 30 mg SQ daily (WT < 150 kg, CrCl > 10-29 mL/min) *Enoxaparin/Lovenox 30 mg SQ BID (WT < 150 kg, CrCl > 30 mL/min) AND *Sequential Compression Device (SCD) Assessment and Plan - Assessment (1) Cellulitis Code(s): L03.90 - Cellulitis, unspecified Status: Acute (2) Alcohol abuse Code(s): F10.10 - Alcohol abuse, uncomplicated Status: Acute (3) Thrombocytopenia Code(s): D69.6 - Thrombocytopenia, unspecified Status: Acute (4) KIESHA (acute kidney injury) Code(s): N17.9 - Acute kidney failure, unspecified Status: Acute (5) Hypokalemia Code(s): E87.6 - Hypokalemia Status: Acute - Plan A/P: 1. LLE Cellulitis: progressive edema/pain LLE, Doppler negative for DVT, Tib- Fib X-ray negative, +warmth to touch, low-grade temp, s/p Vanc/Zosyn/Clinda in ER, will continue w/ IV Abx. 2. KIESHA: Creatinine 1.81, previously 1.33 on 05/10/18, monitor I/O, IVF- caution w/ overload, repeat labs in am. 3. Hypokalemia: K+ 3.0, will replace and recheck in am. 4. Alcohol Abuse: w/ Acute Alcohol Intoxication, Alcohol 273, Seizure Precautions, MVT/Thiamine/Folate replacement, CIWA 5. Thrombocytopenia: Chronic, secondary to alcohol abuse/chronic toxicity, platelets 93, repeat labs in am. 6. DVT Prophylaxis: Mechanical/Pharmacologic contraindication in light of LE edema and high risk for bleed 7. Social work for d/c planning as needed. 8. Case discussed w/ ER physician at length, labs/records/imaging reviewed by me.
[2018-06-21] MEDS: Sod Chloride 0.9% Inj 1,000 ML IV.CONT SCH (22:47)
[2018-06-22 03:52] LABS: Baso % (Auto) 0.9 % (0.0-2.0); Eos # (Auto) 0.3 th/mm3 (0.0-0.4); Eos % (Auto) 8.2 % (0.0-4.0); Hematocrit 26.9 % (39.0-51.0); Hemoglobin 8.9 gm/dL (13.0-17.0); Lymph # (Auto) 1.2 th/mm3 (1.0-4.8); Lymph % (Auto) 29.3 % (9.0-44.0); Mean Corpuscular Hemoglobin 32.4 pg (27.0-34.0); Mean Corpuscular Volume 98.2 fL (80.0-100.0); Mono # (Auto) 0.6 th/mm3 (0.0-0.9); Mono % (Auto) 13.9 % (0.0-8.0); Neut % (Auto) 47.7 % (16.0-70.0); Platelet Count 87 th/mm3 (150-450); Red Blood Count 2.74 mil/mm3 (4.50-5.90); Red Cell Distribution Width 15.6 % (11.6-17.2); White Blood Count 4.1 th/mm3 (4.0-11.0)
[2018-06-22 04:16] LABS: Alanine Aminotransferase 33 U/L (12-78); Alkaline Phosphatase 102 U/L (45-117); Anion Gap 12 meq/L (5-15); Aspartate Aminotransferase 93 U/L (15-37); Blood Urea Nitrogen 10 mg/dL (7-18); Calcium 7.7 mg/dL (8.5-10.1); Carbon Dioxide 20.8 meq/L (21.0-32.0); Chloride 109 meq/L (98-107); Glomerular Filtration Rate 60 mL/min (>89); Glucose,Random 81 mg/dL (74-106); Potassium 3.3 meq/L (3.5-5.1); Sodium 142 meq/L (136-145); Total Protein 7.1 g/dL (6.4-8.2)
[2018-06-22] MEDS ORDERED: Clindamycin 900 mg/NS Premix 900 MG/50 ML PIGGYBACK IV.SIG SCH (06:00)
[2018-06-22 06:43] LABS: Pappenheimer Bodies Present; Target Cells 1+
[2018-06-22 06:44] LABS: Platelet Morphology Normal (Normal)
[2018-06-22] MEDS ORDERED: Mag Sulf 1 gm/100 ml Premix 100 ML IV.SIG ONE (07:53)
[2018-06-22] MEDS: Multivitamin/Minerals Therapeutic Tablet PO SCH (10:12)
[2018-06-22] MEDS: Senna/Docusate Sodium 8.6/50 MG Tablet PO SCH ×2 (10:12→22:58)
[2018-06-22] MEDS: Folic Acid 1 MG Tablet PO SCH (10:13)
[2018-06-22] MEDS: Sod Chloride 0.9% Inj 1,000 ML IV.CONT SCH ×2 (10:14→22:58)
--- NOTE | 2018-06-22 14:41 | P.PN ---
Subjective Interval history: Patient is seen lying quietly in bed. Has no new complaints. No fever or chills. No chest pain or shortness of breath. Left lower leg remains mildly painful but no new or increased swelling. Nursing reports no adverse events overnight. Physical Exam Vital signs: Vital Signs 06/21/18 17:19 06/21/18 17:47 06/21/18 19:39 Temperature 99 F 98.7 F Pulse Rate 108 H 113 H 103 H Respiratory Rate 18 18 16 Blood Pressure 147/77 H 128/73 117/67 Pulse Oximetry 99 96 99 06/21/18 23:59 06/22/18 04:00 06/22/18 08:00 Temperature 99.5 F 99.5 F 99.2 F Pulse Rate 104 H 99 H 109 H Respiratory Rate 16 16 18 Blood Pressure 116/62 123/63 145/79 H Pulse Oximetry 95 96 99 06/22/18 12:00 Temperature 100 F H Pulse Rate 101 H Respiratory Rate 18 Blood Pressure 132/83 Pulse Oximetry 99 Intake & Output 06/21/18 06/22/18 06/22/18 18:59 06:59 18:59 Intake Total 2280 / 2280 1100 / 1100 Output Total 350 / 350 Balance 1930 / 1930 1100 / 1100 Weight 68.492 kg 69.853 kg Intake: IV 1800 / 1800 1100 / 1100 NS Inj 1,000 ML @ 100 mls/hr IV 950 / 950 .CONT .Q10H [facility] Rx#:[id number] Cleocin 900 mg/NS Premix 900 mg 50 / 50 In 50 ml @ 100 mls/hr IV.SIG Q8H LEIF Rx#:[id number] Magnesium Sulfate 1 gm/D5W 100 100 / 100 ml Premix 100 ML @ 100 mls/hr IV.SIG ONCE ONE Rx#:[id number] Zosyn 3.375 GM Premix 50 ML @ 50 / 50 100 mls/hr IV.SIG ONCE ONE Rx#: [id number] NS Inj 1,000 ML @ Wide Open IV. 1000 / 1000 SIG BOLUS ONE Rx#:[id number] NS Inj 500 ML @ 1000 mls/hr IV. 500 / 500 SIG BOLUS LEIF Rx#:[id number] Vancomycin Inj 1,000 MG In NS 250 / 250 Inj 250 ML @ 250 mls/hr IV.SIG ONCE ONE Rx#:[id number] Oral 480 / 480 Output: Urine 350 / 350 Other: # Voids 2 Date of Last Bowel Movement 06/22/18 Weight On Admission 68.492 kg Narrative: GENERAL: Pleasant middle-aged -[place] male in no acute distress. SKIN: Focused skin assessment warm and dry. HEENT: PERRLA, EOMI. No scleral icterus or conjunctival pallor. No lid lag or facial droop. CARDIOVASCULAR: Regular rate and rhythm. RESPIRATORY: No obvious rhonchi or wheezing. Clear to auscultation. Breath sounds equal bilaterally. GASTROINTESTINAL: Abdomen soft, non-tender, nondistended. BS normal. MUSCULOSKELETAL: Extremities without clubbing, cyanosis. No obvious deformities. Thickened skin bilateral lower extremities. Bilateral lower extremity edema, slightly greater left > right, +warmth to touch, abrasion to left goodwin with no drainage. NEUROLOGICAL: Awake, alert and oriented x4. No focal neurologic deficits. Moving both upper and lower extremities spontaneously. Results - Labs CBC & Chem 7: 06/22/18 03:09 06/22/18 03:09 Laboratory Results - last 24 hr 06/21/18 06/21/18 06/21/18 18:36 18:36 18:36 WBC 5.3 RBC 2.69 L Hgb 9.0 L Hct 26.1 L MCV 97.1 MCH 33.5 MCHC 34.5 RDW 15.7 Plt Count 93 L MPV 8.4 Prelim Diff (Auto) Slide review pending Neut % (Auto) 42.0 Lymph % (Auto) 36.7 [place] % (Auto) 13.7 H Eos % (Auto) 6.5 H Baso % (Auto) 1.1 Neut # (Auto) 2.2 Lymph # (Auto) 1.9 [place] # (Auto) 0.7 Eos # (Auto) 0.3 Baso # (Auto) 0.1 WBC Differential . Diff Scan Auto diff confirmed Differential Comment . Platelet Estimate Low L Platelet Morphology Normal Pappenheimer Bodies Present H Target Cells 1+ H Goncalves-Maybee Bodies Present H PT 14.6 H INR 1.4 APTT 30.6 Sodium 131 L Potassium 3.0 L Chloride 99 Carbon Dioxide 22.2 Anion Gap 10 BUN 11 Creatinine 1.81 H Estimated GFR 47 L POC Glucose Random Glucose 92 Lactic Acid Calcium 8.5 Magnesium 1.0 L Total Bilirubin 0.9 AST 103 H ALT 37 Alkaline Phosphatase 114 Troponin I Less than 0.02 L B-Natriuretic Peptide Total Protein 7.8 Albumin 3.5 Urine Color Urine Clarity Urine pH Ur Specific [place] Urine Protein Urine Glucose (UA) Urine Ketones Urine Occult Blood Urine Nitrate Urine Bilirubin Urine Urobilinogen Ur Leukocyte Esterase Urine RBC Urine WBC Micro UA Comment Ur Microscopic Review Urine Culture Comments Serum Alcohol 06/21/18 06/21/18 06/21/18 18:36 18:36 18:36 WBC RBC Hgb Hct MCV MCH MCHC RDW Plt Count MPV Prelim Diff (Auto) Neut % (Auto) Lymph % (Auto) [place] % (Auto) Eos % (Auto) Baso % (Auto) Neut # (Auto) Lymph # (Auto) [place] # (Auto) Eos # (Auto) Baso # (Auto) WBC Differential Diff Scan Differential Comment Platelet Estimate Platelet Morphology Pappenheimer Bodies Target Cells Goncalves-Maybee Bodies PT INR APTT Sodium Potassium Chloride Carbon Dioxide Anion Gap BUN Creatinine Estimated GFR POC Glucose Random Glucose Lactic Acid 3.1 H Calcium Magnesium Total Bilirubin AST ALT Alkaline Phosphatase Troponin I B-Natriuretic Peptide 44 Total Protein Albumin Urine Color Urine Clarity Urine pH Ur Specific [place] Urine Protein Urine Glucose (UA) Urine Ketones Urine Occult Blood Urine Nitrate Urine Bilirubin Urine Urobilinogen Ur Leukocyte Esterase Urine RBC Urine WBC Micro UA Comment Ur Microscopic Review Urine Culture Comments Serum Alcohol 273 H 06/21/18 06/21/18 06/22/18 19:29 21:32 03:09 WBC 4.1 RBC 2.74 L Hgb 8.9 L Hct 26.9 L MCV 98.2 MCH 32.4 MCHC 33.0 RDW 15.6 Plt Count 87 L MPV 8.0 Prelim Diff (Auto) Slide review pending Neut % (Auto) 47.7 Lymph % (Auto) 29.3 [place] % (Auto) 13.9 H Eos % (Auto) 8.2 H Baso % (Auto) 0.9 Neut # (Auto) 2.0 Lymph # (Auto) 1.2 [place] # (Auto) 0.6 Eos # (Auto) 0.3 Baso # (Auto) 0.0 WBC Differential . Diff Scan Auto diff confirmed Differential Comment . Platelet Estimate Low L Platelet Morphology Normal Pappenheimer Bodies Present H Target Cells 1+ H Goncalves-Maybee Bodies PT INR APTT Sodium Potassium Chloride Carbon Dioxide Anion Gap BUN Creatinine Estimated GFR POC Glucose Random Glucose Lactic Acid 3.0 H Calcium Magnesium Total Bilirubin AST ALT Alkaline Phosphatase Troponin I B-Natriuretic Peptide Total Protein Albumin Urine Color Yellow Urine Clarity Clear Urine pH 6.0 Ur Specific [place] 1.003 Urine Protein Negative Urine Glucose (UA) Negative Urine Ketones Negative Urine Occult Blood Negative Urine Nitrate Negative Urine Bilirubin Negative Urine Urobilinogen Less than 2 Ur Leukocyte Esterase Negative Urine RBC 1 Urine WBC 1 Micro UA Comment Culture not ind Ur Microscopic Review Not Reportable Urine Culture Comments Culture not ind Serum Alcohol 06/22/18 06/22/18 03:09 13:11 WBC RBC Hgb Hct MCV MCH MCHC RDW Plt Count MPV Prelim Diff (Auto) Neut % (Auto) Lymph % (Auto) [place] % (Auto) Eos % (Auto) Baso % (Auto) Neut # (Auto) Lymph # (Auto) [place] # (Auto) Eos # (Auto) Baso # (Auto) WBC Differential Diff Scan Differential Comment Platelet Estimate Platelet Morphology Pappenheimer Bodies Target Cells Goncalves-Maybee Bodies PT INR APTT Sodium 142 D Potassium 3.3 L Chloride 109 H D Carbon Dioxide 20.8 L Anion Gap 12 BUN 10 Creatinine 1.45 H Estimated GFR 60 L POC Glucose 101 Random Glucose 81 Lactic Acid Calcium 7.7 L D Magnesium Total Bilirubin 0.8 AST 93 H ALT 33 Alkaline Phosphatase 102 Troponin I B-Natriuretic Peptide Total Protein 7.1 D Albumin 3.0 L Urine Color Urine Clarity Urine pH Ur Specific [place] Urine Protein Urine Glucose (UA) Urine Ketones Urine Occult Blood Urine Nitrate Urine Bilirubin Urine Urobilinogen Ur Leukocyte Esterase Urine RBC Urine WBC Micro UA Comment Ur Microscopic Review Urine Culture Comments Serum Alcohol - Imaging Impressions Chest X-Ray 06/21/18 18:32 CONCLUSION: 1. Nodular pleural thickening involving the left upper lung field laterally which is stable. 2. No focal infiltrate or pulmonary vascular congestion. Venous Doppler Study 06/21/18 18:32 CONCLUSION: 1. No sonographic evidence for left lower extremity DVT. Tibia/Fibula X-Ray 06/21/18 20:29 CONCLUSION: 1. Negative examination Assessment and Plan - Assessment (1) Cellulitis Code(s): L03.90 - Cellulitis, unspecified Status: Acute (2) Alcohol abuse Code(s): F10.10 - Alcohol abuse, uncomplicated Status: Chronic (3) Thrombocytopenia Code(s): D69.6 - Thrombocytopenia, unspecified Status: Acute (4) KIESHA (acute kidney injury) Code(s): N17.9 - Acute kidney failure, unspecified Status: Acute (5) Hypokalemia Code(s): E87.6 - Hypokalemia Status: Acute - Plan This is a 58-year-old male with a PMH of HTN, Prostate CA and Alcohol Abuse who presents to ER with complaints of left lower extremity swelling and pain x1 wk. Denies injury/trauma. LLE Cellulitis: progressive edema/pain LLE, Doppler negative for DVT, Tib-Fib X -ray negative, +warmth to touch, -still with low-grade temp -Vanc/Zosyn/Clinda in ER, will continue w/ IV clindamycin KIESHA: Creatinine 1.81, previously 1.33 on 05/10/18 -monitor I/O, IVF-caution w/ overload -improving Hypokalemia: -Replace and monitor Alcohol Abuse: chronic w/ Acute Alcohol Intoxication, Alcohol 273 -Seizure Precautions -MVT/Thiamine/Folate replacement -CIWA Thrombocytopenia: Chronic, secondary to alcohol abuse/chronic toxicity -Monitor as indicated; avoid anticoagulants DVT Prophylaxis: Mechanical/Pharmacologic contraindication in light of LE edema and high risk for bleed Discharge planning: To be determined (1) Cellulitis Qualifiers: Site of cellulitis: extremity Site of cellulitis of extremity: lower extremity Laterality: left Qualified Code(s): L03.116 - Cellulitis of left lower limb
[2018-06-23] MEDS: Sod Chloride 0.9% Inj 1,000 ML IV.CONT SCH ×3 (04:42→23:26)
[2018-06-23 08:39] LABS: Calcium 7.8 mg/dL (8.5-10.1); Carbon Dioxide 24.5 meq/L (21.0-32.0); Magnesium 0.9 mg/dL (1.5-2.5); Potassium 3.1 meq/L (3.5-5.1)
[2018-06-23] MEDS: Senna/Docusate Sodium 8.6/50 MG Tablet PO SCH ×2 (10:07→20:04)
[2018-06-23] MEDS: Multivitamin/Minerals Therapeutic Tablet PO SCH (10:07)
[2018-06-23] MEDS: Folic Acid 1 MG Tablet PO SCH (10:07)
[2018-06-23] MEDS ORDERED: Magnesium Sulfate Inj 2 GM in Sodium Chlor 0.9% Inj 96 ML IV.SIG ONE (15:48)
--- NOTE | 2018-06-23 17:31 | P.PN ---
Subjective Interval history: Patient is seen lying quietly in bed. He denies any fevers or chills. No chest pain or shortness of breath no nausea vomiting or diarrhea. Nursing reports no adverse events. He tells me he would like to go home as soon as possible. Physical Exam Vital signs: Vital Signs 06/22/18 20:00 06/23/18 00:00 06/23/18 04:00 Temperature 99.4 F 100.2 F H 99.6 F Pulse Rate 107 H 101 H 100 H Respiratory Rate 18 20 16 Blood Pressure 132/69 124/70 125/62 Pulse Oximetry 99 100 99 06/23/18 08:00 06/23/18 12:00 Temperature 98.9 F 98.4 F Pulse Rate 91 H 90 Respiratory Rate 20 18 Blood Pressure 135/80 136/82 Pulse Oximetry 100 100 Intake & Output 06/22/18 06/23/18 06/23/18 18:59 06:59 18:59 Intake Total 1686 / 1686 2212 / 2212 346 / 346 Balance 1686 / 1686 2212 / 2212 346 / 346 Intake: IV 1206 / 1206 2212 / 2212 106 / 106 NS Inj 1,000 ML @ 100 mls/hr IV 950 / 950 2000 / 2000 .CONT .Q10H [facility] Rx#:[id number] Cleocin 900 mg/NS Premix 900 mg 50 / 50 In 50 ml @ 100 mls/hr IV.SIG Q8H [facility] Rx#:[id number] Cleocin Inj 900 MG In NS Inj 106 / 106 212 / 212 106 / 106 100 ML @ 200 mls/hr IV.SIG Q8H [facility] Rx#:[id number] Magnesium Sulfate 1 gm/D5W 100 100 / 100 ml Premix 100 ML @ 100 mls/hr IV.SIG ONCE ONE Rx#:[id number] Oral 480 / 480 240 / 240 Other: # Voids 4 Date of Last Bowel Movement 06/22/18 06/22/18 Narrative: GENERAL: Pleasant middle-aged -[place]os[place] male in no acute distress. SKIN: Focused skin assessment warm and dry. CARDIOVASCULAR: Regular rate and rhythm. RESPIRATORY: No obvious rhonchi or wheezing. Clear to auscultation. Breath sounds equal bilaterally. GASTROINTESTINAL: Abdomen soft, non-tender, nondistended. BS normal. MUSCULOSKELETAL: Extremities without clubbing, cyanosis. No obvious deformities. Thickened skin bilateral lower extremities. Bilateral lower extremity edema, slightly greater left > right, +warmth to touch, abrasion to left [place] with no drainage. NEUROLOGICAL: Awake, alert and oriented x4. No focal neurologic deficits. Moving both upper and lower extremities spontaneously. Results - Labs CBC & Chem 7: 06/22/18 03:09 06/23/18 08:04 Laboratory Results - last 24 hr 06/23/18 06/23/18 06/23/18 08:04 08:04 09:04 Sodium 134 L Potassium 3.1 L Chloride 102 Carbon Dioxide 24.5 Anion Gap 8 BUN 6 L Creatinine 1.18 Estimated GFR 77 L POC Glucose 109 Random Glucose 98 Lactic Acid 1.0 Calcium 7.8 L Magnesium 0.9 L 06/23/18 06/23/18 11:50 17:03 Sodium Potassium Chloride Carbon Dioxide Anion Gap BUN Creatinine Estimated GFR POC Glucose 138 H 131 H Random Glucose Lactic Acid Calcium Magnesium Assessment and Plan - Assessment (1) Cellulitis Code(s): L03.90 - Cellulitis, unspecified Status: Acute (2) Alcohol abuse Code(s): F10.10 - Alcohol abuse, uncomplicated Status: Chronic (3) Thrombocytopenia Code(s): D69.6 - Thrombocytopenia, unspecified Status: Acute (4) KIESHA (acute kidney injury) Code(s): N17.9 - Acute kidney failure, unspecified Status: Acute (5) Hypokalemia Code(s): E87.6 - Hypokalemia Status: Acute - Plan This is a 58-year-old male with a PMH of HTN, Prostate CA and Alcohol Abuse who presents to ER with complaints of left lower extremity swelling and pain x1 wk. Denies injury/trauma. LLE Cellulitis: progressive edema/pain LLE, Doppler negative for DVT, Tib-Fib X -ray negative, +warmth to touch, -Now afebrile -Vanc/Zosyn/Clinda in ER, will continue w/ IV clindamycin KIESHA: Creatinine 1.81, previously 1.33 on 05/10/18 -monitor I/O, IVF-caution w/ overload -Resolved Hypokalemia: -Replace and monitor Alcohol Abuse: chronic w/ Acute Alcohol Intoxication, Alcohol 273 -Seizure Precautions -MVT/Thiamine/Folate replacement -CIWA Thrombocytopenia: Chronic, secondary to alcohol abuse/chronic toxicity -Monitor as indicated; avoid anticoagulants DVT Prophylaxis: Mechanical/Pharmacologic contraindication in light of LE edema and high risk for bleed Discharge planning: Likely home on oral antibiotics tomorrow if electrolytes stable (1) Cellulitis Qualifiers: Site of cellulitis: extremity Site of cellulitis of extremity: lower extremity Laterality: left Qualified Code(s): L03.116 - Cellulitis of left lower limb
[2018-06-23] MEDS: Potassium Chlor 10 mEq Premix 10 MEQ/100 ML PIGGYBACK IV.SIG SCH ×3 (19:58→22:18)
[2018-06-24 04:52] LABS: Calcium 7.7 mg/dL (8.5-10.1); Carbon Dioxide 24.1 meq/L (21.0-32.0); Magnesium 1.3 mg/dL (1.5-2.5); Potassium 3.2 meq/L (3.5-5.1)
[2018-06-24] MEDS: Folic Acid 1 MG Tablet PO SCH (10:40)
[2018-06-24] MEDS: Senna/Docusate Sodium 8.6/50 MG Tablet PO SCH ×2 (10:40→21:46)
[2018-06-24] MEDS: Multivitamin/Minerals Therapeutic Tablet PO SCH (10:40)
[2018-06-24] MEDS: Mag Sulf 1 gm/100 ml Premix 100 ML IV.SIG SCH ×2 (10:46→12:15)
[2018-06-24] MEDS: Potassium Chlor 10 mEq Premix 10 MEQ/100 ML PIGGYBACK IV.SIG SCH ×3 (13:34→22:46)
--- NOTE | 2018-06-24 16:32 | P.PNIM ---
Subjective Interval history: Patient is seen lying quietly in bed. He reports no concern but he would like to go home as soon as possible. No fever or chills. No chest pain or shortness of breath. No nausea vomiting or diarrhea. Does have some mild lower leg pain but no different from before. Physical Exam Vital signs: Last Vital Signs Temp 98.5 F 06/24/18 12:07 Pulse 85 06/24/18 12:07 Resp 20 06/24/18 12:07 BP 135/93 H 06/24/18 12:07 Pulse Ox 100 06/24/18 12:07 Intake & Output 06/22/18 06/23/18 06/24/18 06/25/18 06:59 06:59 06:59 06:59 Intake Total 2280 / 2280 3898 / 3898 6858 / 6858 200 / 200 Output Total 350 / 350 Balance 1930 / 1930 3898 / 3898 6858 / 6858 200 / 200 Weight 69.853 kg Narrative: GENERAL: Pleasant middle-aged -[place] male in no acute distress. SKIN: Focused skin assessment warm and dry. CARDIOVASCULAR: Regular rate and rhythm. RESPIRATORY: No obvious rhonchi or wheezing. Clear to auscultation. Breath sounds equal bilaterally. GASTROINTESTINAL: Abdomen soft, non-tender, nondistended. BS normal. MUSCULOSKELETAL: Extremities without clubbing, cyanosis. No obvious deformities. Thickened skin bilateral lower extremities. Bilateral lower extremity edema, slightly greater left > right, +warmth to touch, abrasion to left goodwin with no drainage. NEUROLOGICAL: Awake, alert and oriented x4. No focal neurologic deficits. Moving both upper and lower extremities spontaneously. Results Labs CBC & Chem 7: 06/22/18 03:09 06/24/18 03:39 Assessment and Plan (1) Cellulitis: Code(s): L03.90 - Cellulitis, unspecified Status: Acute (2) Alcohol abuse: Code(s): F10.10 - Alcohol abuse, uncomplicated Status: Chronic (3) Thrombocytopenia: Code(s): D69.6 - Thrombocytopenia, unspecified Status: Acute (4) KIESHA (acute kidney injury): Code(s): N17.9 - Acute kidney failure, unspecified Status: Acute (5) Hypokalemia: Code(s): E87.6 - Hypokalemia Status: Acute Plan This is a 58-year-old male with a PMH of HTN, Prostate CA and Alcohol Abuse who presents to ER with complaints of left lower extremity swelling and pain x1 wk. Denies injury/trauma. LLE Cellulitis: progressive edema/pain LLE, Doppler negative for DVT, Tib-Fib X -ray negative, +warmth to touch, -Now afebrile -Vanc/Zosyn/Clinda in ER, will continue w/ IV clindamycin KIESHA: -monitor I/O, IVF-caution w/ overload -Resolved Electrolyte imbalance: -Replace and monitor Alcohol Abuse: chronic w/ Acute Alcohol Intoxication, Alcohol 273 -Seizure Precautions -MVT/Thiamine/Folate replacement -CIWA Thrombocytopenia: Chronic, secondary to alcohol abuse/chronic toxicity -Monitor as indicated; avoid anticoagulants DVT Prophylaxis: Mechanical/Pharmacologic contraindication in light of LE edema and high risk for bleed Discharge planning: Likely home on oral antibiotics when electrolytes stable Progress Note: Quality VTE Deep Vein Thrombosis/Pulmonary Embolism Present on Admission: No _ (1) Cellulitis Qualifiers: Site of cellulitis: extremity Site of cellulitis of extremity: lower extremity Site of cellulitis of trunk: Laterality: left Qualified Code(s): L03.116 - Cellulitis of left lower limb
[2018-06-24] MEDS: Sod Chloride 0.9% Inj 1,000 ML IV.CONT SCH ×3 (18:04→20:47)
[2018-06-24 18:19] LABS: Magnesium 1.6 mg/dL (1.5-2.5); Potassium 3.7 meq/L (3.5-5.1)
[2018-06-24] MEDS: Calcium Carbonate 500 MG Tablet PO SCH (18:20)
[2018-06-24] MEDS ORDERED: Potassium Chlor 10 mEq Premix 10 MEQ/100 ML PIGGYBACK IV.SIG ONE (22:15)
[2018-06-25] MEDS: Sod Chloride 0.9% Inj 1,000 ML IV.CONT SCH (05:51)
[2018-06-25] MEDS: Senna/Docusate Sodium 8.6/50 MG Tablet PO SCH (08:16)
[2018-06-25] MEDS: Folic Acid 1 MG Tablet PO SCH (08:16)
[2018-06-25] MEDS: Calcium Carbonate 500 MG Tablet PO SCH (08:16)
[2018-06-25] MEDS: Multivitamin/Minerals Therapeutic Tablet PO SCH (08:16)
[2018-06-25 08:42] LABS: Calcium 7.9 mg/dL (8.5-10.1); Carbon Dioxide 23.4 meq/L (21.0-32.0); Magnesium 1.3 mg/dL (1.5-2.5)
--- NOTE | 2018-06-25 08:53 | P.PNIM ---
Subjective Interval history: Sitting up in bed eating breakfast. He tells me that he is feeling much better. No fevers or chills. Leg swelling has resolved. Tells me that he was having frequent very watery diarrhea however this also has improved. No nausea or vomiting. No chest pain or shortness of breath. Physical Exam Vital signs: Last Vital Signs Temp 98.1 F 06/25/18 07:22 Pulse 91 H 06/25/18 07:22 Resp 16 06/25/18 07:22 BP 134/90 06/25/18 07:22 Pulse Ox 99 06/25/18 07:22 Intake & Output 06/23/18 06/24/18 06/25/18 06/26/18 06:59 06:59 06:59 06:59 Intake Total 3898 / 3898 6858 / 6858 4692 / 4692 106 / 106 Balance 3898 / 3898 6858 / 6858 4692 / 4692 106 / 106 Narrative: GENERAL: Pleasant middle-aged -[place] male in no acute distress. SKIN: Focused skin assessment warm and dry. CARDIOVASCULAR: Regular rate and rhythm. RESPIRATORY: No obvious rhonchi or wheezing. Clear to auscultation. Breath sounds equal bilaterally. GASTROINTESTINAL: Abdomen soft, non-tender, nondistended. BS normal. MUSCULOSKELETAL: Extremities without clubbing, cyanosis. No obvious deformities. Thickened skin bilateral lower extremities. No lower extremity edema, slightly greater left , abrasion to left goodwin with no drainage -healing well. NEUROLOGICAL: Awake, alert and oriented x4. No focal neurologic deficits. Moving both upper and lower extremities spontaneously. Results Labs CBC & Chem 7: 06/22/18 03:09 06/25/18 07:41 Assessment and Plan (1) Cellulitis: Code(s): L03.90 - Cellulitis, unspecified Status: Acute (2) Alcohol abuse: Code(s): F10.10 - Alcohol abuse, uncomplicated Status: Chronic (3) Thrombocytopenia: Code(s): D69.6 - Thrombocytopenia, unspecified Status: Acute (4) KEISHA (acute kidney injury): Code(s): N17.9 - Acute kidney failure, unspecified Status: Acute (5) Hypokalemia: Code(s): E87.6 - Hypokalemia Status: Acute Plan This is a 58-year-old male with a PMH of HTN, Prostate CA and Alcohol Abuse who presents to ER with complaints of left lower extremity swelling and pain x1 wk. Denies injury/trauma. LLE Cellulitis: progressive edema/pain LLE, Doppler negative for DVT, Tib-Fib X -ray negative, +warmth to touch, -Now afebrile -Vanc/Zosyn/Clinda in ER, now w/ IV clindamycin. Stop due to diarrhea and clinical improvement. KIESHA: -monitor I/O, IVF-caution w/ overload -Resolved Electrolyte imbalance: -Replace and monitor -Mostly resolved. We will sent home with supplemental p.o. mag and calcium. Alcohol Abuse: chronic w/ Acute Alcohol Intoxication, Alcohol 273 -Seizure Precautions -MVT/Thiamine/Folate replacement -CIWA -Cessation counseling Thrombocytopenia: Chronic, secondary to alcohol abuse/chronic toxicity -Monitor as indicated; avoid anticoagulants DVT Prophylaxis: Mechanical/Pharmacologic contraindication in light of LE edema and high risk for bleed Discharge planning: Likely home on oral antibiotics when electrolytes stable Progress Note: Quality VTE Deep Vein Thrombosis/Pulmonary Embolism Present on Admission: No _ (1) Cellulitis Qualifiers: Laterality: left Site of cellulitis: extremity Site of cellulitis of extremity: lower extremity Site of cellulitis of trunk: Qualified Code(s): L03.116 - Cellulitis of left lower limb
[2018-06-25] MEDS ORDERED: Magnesium Oxide 400 MG Tablet PO SCH (09:00)
--- NOTE | 2018-06-25 09:01 | P.DS ---
DS: Providers Date of admission: 06/21/18 22:42 Primary care physician: Vicente Castorena MD Brief History from admission: This is a 58-year-old male with a PMH of HTN, Prostate CA and Alcohol Abuse who presents to ER with complaints of left lower extremity swelling and pain x1 wk. Denies injury/trauma. Notes progressive lower extremity swelling and pain, now constant, 8/10, non-radiating. No fever or chills. No h/o similar symptoms. On arrival, BP 147/77, HR 108A, Temp 99. Hemoglobin 9.0. Platelets 93, previously 86 on 05/09/2018. INR 1.4. K+ 3.0. Creatinine 1.81, previously 1.33 on 05/10/2018. Lactic Acid 3.1. Troponin negative. UA negative. Alcohol 273. CXR with pleural thickening which is stable, no acute findings. LE Doppler negative for DVT. Tib-fib X-ray negative. S/p Vanc/Zosyn /Clinda in ER. DS: Diagnosis Discharge Diagnosis (1) Cellulitis: Status: Resolved (2) Alcohol abuse: Status: Chronic (3) Thrombocytopenia: Status: Resolved (4) KIESHA (acute kidney injury): Status: Resolved (5) Hypokalemia: Status: Resolved DS: Summary GENERAL: Pleasant middle-aged -[place] male in no acute distress. SKIN: Focused skin assessment warm and dry. CARDIOVASCULAR: Regular rate and rhythm. RESPIRATORY: No obvious rhonchi or wheezing. Clear to auscultation. Breath sounds equal bilaterally. GASTROINTESTINAL: Abdomen soft, non-tender, nondistended. BS normal. MUSCULOSKELETAL: Extremities without clubbing, cyanosis. No obvious deformities. Thickened skin bilateral lower extremities. No lower extremity edema, slightly greater left , abrasion to left goodwin with no drainage -healing well. NEUROLOGICAL: Awake, alert and oriented x4. No focal neurologic deficits. Moving both upper and lower extremities spontaneously. Time Spent with Patient Total time spent providing and/or coordinating discharge services: <30 min Quality: VTE Deep Vein Thrombosis/Pulmonary Embolism Present on Admission: No Exam Narrative Exam Narrative: GENERAL: Pleasant middle-aged -[place] male in no acute distress. SKIN: Focused skin assessment warm and dry. CARDIOVASCULAR: Regular rate and rhythm. RESPIRATORY: No obvious rhonchi or wheezing. Clear to auscultation. Breath sounds equal bilaterally. GASTROINTESTINAL: Abdomen soft, non-tender, nondistended. BS normal. MUSCULOSKELETAL: Extremities without clubbing, cyanosis. No obvious deformities. Thickened skin bilateral lower extremities. No lower extremity edema, slightly greater left , abrasion to left goodwin with no drainage -healing well. NEUROLOGICAL: Awake, alert and oriented x4. No focal neurologic deficits. Moving both upper and lower extremities spontaneously. Results Labs on day of discharge: Labs from last 24 hours 06/25/18 06/24/18 06/24/18 07:41 19:03 17:18 Sodium 134 L Potassium 4.0 3.7 Chloride 102 Carbon Dioxide 23.4 Anion Gap 9 BUN 7 Creatinine 1.27 Estimated GFR 70 L POC Glucose 106 Random Glucose 91 Calcium 7.9 L Magnesium 1.3 L 1.6 06/24/18 12:23 Sodium Potassium Chloride Carbon Dioxide Anion Gap BUN Creatinine Estimated GFR POC Glucose 129 H Random Glucose Calcium Magnesium Impressions ITS Impressions Chest X-Ray 06/21/18 18:32 CONCLUSION: 1. Nodular pleural thickening involving the left upper lung field laterally which is stable. 2. No focal infiltrate or pulmonary vascular congestion. Venous Doppler Study 06/21/18 18:32 CONCLUSION: 1. No sonographic evidence for left lower extremity DVT. Tibia/Fibula X-Ray 06/21/18 20:29 CONCLUSION: 1. Negative examination Discharge Plan Discharge Disposition Patient Disposition: 01 Discharge Home Discharge Condition Condition: Stable Discharge Order Discharge Orders: Discharge Order (Routine); Ordered 06/25/18 Ordered By: Deisy Carrasco Discharge Details Anticipated Discharge Date: 06/25/18 Physicians Team ED Provider: Diana Johnson ED Midlevel Provider: Te Mandujano Primary Care Provider: Vicente Castorena Attending Provider: Rasheed Xie Rxs /Orders / Referrals /Forms Prescriptions: New magnesium oxide 400 mg (241.3 mg magnesium) Tablet 400 mg PO DAILY Qty: 7 RF: 0 calcium carbonate [Oyster Shell Calcium 500] 500 mg calcium (1,250 mg) Tablet 500 mg PO DAILY Qty: 30 RF: 0 Continue amlodipine 10 mg Tablet 10 mg PO DAILY RF: 0 folic acid 1 mg Tablet 1 mg PO DAILY Qty: 30 RF: 0 multivitamin with folic acid [Thera] 400 mcg Tablet 1 tab PO DAILY Qty: 30 RF: 0 thiamine HCl (vitamin B1) [Vitamin B-1] 100 mg Tablet 100 mg PO DAILY Qty: 30 RF: 0 Referrals: Vicente Castorena MD [Primary Care Provider] - See Instructions Discharge Instructions Patient Printed Instructions: Calcium/Vitamin D Supplement (By mouth), Magnesium Oxide (By mouth), Cellulitis (GEN), Abuse of Alcohol (GEN) Status ED Status: Left Department Discharge Information Discharge Date/Time: 06/25/18 13:56
== END 2018-06-25 13:56 | disposition home or self-care (01) ==
LOC: NEPE 17:16 → NEDA 17:16 → NEPFCDU 23:11
PROVIDERS: ADMIT Hospitalist; ATTEND Hospitalist